=== PATIENT | male | born 1975 | race Caucasian/White ===

== ENCOUNTER 2017-10-09 01:34 | Inpatient (IN) | payer OTHER ==
[2017-10-09] VITALS (21 sets, daily range): BP systolic 96–150; BP diastolic 45–83; PULSE 69–123; RESP 16–26; TEMP 97.7–100.2; O2SAT 95–100
[~2017-10-09] VITALS: Ht 177.8 cm; Wt 88.6 kg
[2017-10-09] MEDS ORDERED: MANNITOL INJ 0 ML ONE ×2 (01:35→14:23)
[2017-10-09] MEDS ORDERED: MANNITOL INJ 200 ML ONE (01:36)
[2017-10-09] MEDS ORDERED: ROCURONIUM INJ 50 MG/5 ML VIAL ONE ×2 (01:37)
[2017-10-09] MEDS ORDERED: PROPOFOL 1000 MG/100 ML INJ 100 ML ONE (01:41)
[2017-10-09] MEDS ORDERED: ETOMIDATE 40 MG/20 ML VIAL ONE (01:49)
[2017-10-09] MEDS ORDERED: SUCCINYLCHOLINE CHLORIDE 200 MG/10 ML VIAL ONE (01:50)
[2017-10-09 01:55] LABS: AUTOMATED NEUTROPHIL # 2.9 TH/MM3 (1.8-7.7); BASOPHIL % 0.5 % (0.0-2.0); EOSINOPHIL # 0.3 TH/MM3 (0-0.4); EOSINOPHIL % 3.7 % (0.0-4.0); HEMATOCRIT 46.1 % (39.0-51.0); HEMOGLOBIN 15.9 GM/DL (13.0-17.0); LYMPH % 55.4 % (9.0-44.0); MEAN CELL VOLUME 89.8 FL (80.0-100.0); MEAN CORPUSCULAR HEMOGLOBIN 30.9 PG (27.0-34.0); MEAN CORPUSCULAR HGB CONC 34.4 % (32.0-36.0); MEAN PLATELET VOLUME 8.2 FL (7.0-11.0); MONO % 8.6 % (0.0-8.0); MONOCYTE # 0.8 TH/MM3 (0-0.9); NEUT % 31.8 % (16.0-70.0); PLATELET COUNT 228 TH/MM3 (150-450); RED BLOOD COUNT 5.14 MIL/MM3 (4.50-5.90); RED CELL DISTRIBUTION WIDTH 13.3 % (11.6-17.2)
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
[2017-10-09] MEDS: MIDAZOLAM HCL 2 MG/2 ML VIAL IV PUSH PRN ×2 (02:00→19:16)
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
[2017-10-09] MEDS ORDERED: SODIUM CHLOR 0.9% 1000 ML INJ 1,000 ML IV SCH ×2 (02:03→12:45)
[2017-10-09 02:07] LABS: INTERNATIONAL NORMALIZED RATIO 1.1 RATIO; PROTHROMBIN TIME - PATIENT 11.3 SEC (9.8-11.6)
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
[2017-10-09 02:15] LABS: ATYPICAL LYMPHOCYTES 36 % (0-0); BANDS 1 % (0-6); LYMPHOCYTES 23 % (9-44); MONOCYTES 6 % (0-8); NEUTROPHIL # MANUAL DIFF 2.9 TH/MM3 (1.8-7.7); POLYS (SEG NEUTROPHILS) 31 % (16-70)
[2017-10-09] MEDS ORDERED: MISCELLANEOUS NURSING INFORMATION XX SCH (02:15)
[2017-10-09] MEDS ORDERED: ONDANSETRON HCL 4 MG/2 ML VIAL IV PUSH PRN (02:15)
[2017-10-09] MEDS ORDERED: CHLORHEXIDINE GLUCONATE 2 % 1 PACK (2 CLOTHS) TOP PRN (02:15)
[2017-10-09] MEDS ORDERED: ENALAPRILAT 1.25 MG/ML VIAL IV PUSH PRN (02:15)
[2017-10-09] MEDS ORDERED: IOHEXOL 350 MG/ML 10 ML VIAL (for RAD DIAG) IVCONTRAST ONE (02:18)
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
[2017-10-09] MEDS ORDERED: PROPOFOL 1000 MG/100 ML INJ 100 ML IV PRN (02:45)
[2017-10-09] MEDS ORDERED: fentaNYL DRIP 250 ML IV PRN (02:45)
[2017-10-09] MEDS ORDERED: NOREPINEPHRINE 4 MG/4 ML AMP ONE (02:52)
[2017-10-09] MEDS ORDERED: MANNITOL INJ 50 ML ONE (02:56)
[2017-10-09] MEDS ORDERED: GLUCAGON 1 MG/ML VIAL OTHER PRN (03:00)
[2017-10-09] MEDS ORDERED: POTASSIUM CHLOR 40 MEQ PREMIX 100 ML IV PRN (03:00)
[2017-10-09] MEDS ORDERED: POTASSIUM PHOSPHATE MONOBASIC 500 MG TAB PO/TUBE PRN (03:00)
[2017-10-09] MEDS ORDERED: MAGNESIUM SULFATE INJ 2 GM in SODIUM CHLORIDE 0.9% INJ 96 ML IV PRN (03:00)
[2017-10-09] MEDS ORDERED: POTASSIUM PHOSPHATE INJ 30 MMOL in SODIUM CHLOR 0.9% 250 ML INJ 250 ML IV PRN (03:00)
[2017-10-09] MEDS ORDERED: MAGNESIUM SULFATE INJ 4 GM in SODIUM CHLORIDE 0.9% INJ 92 ML IV PRN (03:00)
[2017-10-09] MEDS ORDERED: SODIUM CHLORIDE 23.4% INJ 240 MEQ in SYRINGE/BAG 1 EA IV ONE ×3 (03:00→14:30)
[2017-10-09] MEDS ORDERED: MAGNESIUM OXIDE 400 MG TAB PO PRN (03:00)
[2017-10-09] MEDS ORDERED: SODIUM PHOSPHATE INJ 30 MMOL in SODIUM CHLOR 0.9% 250 ML INJ 240 ML IV PRN (03:00)
[2017-10-09] MEDS ORDERED: POTASSIUM CHLORIDE 25 MEQ EFFERVESCENT TAB PO PRN (03:00)
[2017-10-09] MEDS: INSULIN ASPART SUPPLEMENTAL SCALE SQ SCH ×4 (03:00→20:26)
[2017-10-09] MEDS ORDERED: POTASSIUM PHOSPHATE MONOBASIC 500 MG TAB PO PRN (03:00)
[2017-10-09] MEDS ORDERED: POTASSIUM CHLOR 20 MEQ PREMIX 100 ML IV PRN ×2 (03:00)
[2017-10-09] MEDS ORDERED: DEXTROSE 50% IN WATER 50 ML VIAL(D50) IV PUSH PRN (03:00)
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
[2017-10-09] MEDS ORDERED: CISATRACURIUM BESYLATE 10 MG/5 ML VIAL IV PUSH SCH (03:10)
[2017-10-09] MEDS ORDERED: TERBUTALINE INJ 1 MG/ML AMP SQ PRN (03:15)
[2017-10-09] MEDS ORDERED: CISATRACURIUM BESYLATE 20 MG/10 ML VIAL IV PUSH ONE ×2 (03:15)
[2017-10-09] MEDS ORDERED: MANNITOL 12.5 GM/50 ML VIAL IV SCH (03:15)
[2017-10-09] MEDS ORDERED: MIDAZOLAM 100 MG/100 ML INJ 100 ML IV PRN (03:15)
[2017-10-09] MEDS ORDERED: MIDAZOLAM HCL 5 MG/5 ML VIAL IV PUSH ONE (03:15)
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
[2017-10-09] MEDS ORDERED: CISATRACURIUM 100 MG/NS 250 ML IV PRN ×2 (03:30)
[2017-10-09] MEDS: CHLORHEXIDINE GLUCONATE 2 % 1 PACK (2 CLOTHS) TOP SCH (03:35)
[2017-10-09] MEDS: PANTOPRAZOLE SODIUM 40 MG VIAL IVP SCH (03:35)
[2017-10-09] MEDS: NOREPINEPHRINE INJ 4 MG in SODIUM CHLOR 0.9% 250 ML INJ 246 ML IV PRN ×4 (03:37→20:27)
[2017-10-09] MEDS: CISATRACURIUM INJ 100 MG in SODIUM CHLOR 0.9% 250 ML INJ 250 ML IV PRN ×2 (03:38→19:15)
--- NOTE | 2017-10-09 04:39 | PD.PROCEDR ---
Procedure Note Procedure DATE: 10/09/17 CENTRAL LINE PLACEMENT: Right internal jugular vein. Ultrasound-guided INDICATION: Central venous access CONSENT Procedure was done emergently as he requires central access for treatment of life threatening intracerebral hypertension.. There is no family contact available for consent. Patient is not capacitated. DESCRIPTION OF THE PROCEDURE The patient was placed in supine position, Trendelenburg. The skin was cleansed with Chloraprep x4. Additional barrier precautions included large sterile drape, sterile gloves, sterile gown, face mask, and hat. 1 % lidocaine was used for local anesthesia. Initial attempt at R subclavian site unsuccessful x2. Under direct ultrasound guidance and on single attempt, the R IJ vein was accessed with an introducer needle. The RIJ was collapsed. The guide wire was advanced and the tract was dilated. Using Seldinger technique a 7 Icelandic 20 cm antimicrobial coated triple-lumen catheter was advanced to a depth of 17 centimeters. The guide wire was removed. All ports had good return of dark venous blood and flushed easily with saline. The central line was secured with 2.0 silk as the Stat lock was not holding due to diaphoresis. A sterile dressing with antibiotic disc was applied. ESTIMATED BLOOD LOSS: Minimal COMPLICATIONS: No apparent complications. STAT chest x-ray demonstrates satisfactory central venous line position without apparent complication Bertha Austin MD Oct 09, 2017 04:39
--- NOTE | 2017-10-09 04:44 | RADRPT ---
EXAM DATE/TIME: 10/09/2017 04:19 [facility] COMPARISON: CHEST SINGLE AP, October 09, 2017, 1:36. INDICATIONS : Central line placement. MEDICAL HISTORY : None. SURGICAL HISTORY : None. ENCOUNTER: Subsequent ACUITY: 1 day PAIN SCORE: Non-responsive. LOCATION: Bilateral chest FINDINGS: Endotracheal tube tip 4 cm proximal to gerda. Nasogastric tube and right central line. Tip of centra l line at the cavoatrial junction. No pneumothorax. Clear lungs. CONCLUSION: Central line in good position. No pneumothorax. Enzo Yeboah Jr., MD on October 09, 2017 at 4:42 Board Certified Radiologist. This report was verified electronically.
[2017-10-09] MEDS: 3% SALINE INJ 500 ML IV SCH (06:12)
[2017-10-09] MEDS: PROPOFOL 1000 MG/100 ML INJ 100 ML IV PRN ×4 (07:30→20:25)
[2017-10-09] MEDS: CHLORHEXIDINE 0.12% (ORAL KIT) 15 ML CUP MT SCH ×2 (08:00→20:26)
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
--- NOTE | 2017-10-09 08:49 | RADRPT ---
EXAM DATE/TIME: 10/09/2017 08:23 [facility] COMPARISON: CT BRAIN W/O CONTRAST, October 09, 2017, 1:48. INDICATIONS : Follow up bleed. Increasing intracranial pressure. RADIATION DOSE: 66.34 CTDIvol (mGy) MEDICAL HISTORY : Non-responsive. SURGICAL HISTORY : Non-responsive. ENCOUNTER: Subsequent ACUITY: 1 day PAIN SCALE: Non-responsive LOCATION: cranial TECHNIQUE: Multiple contiguous axial images were obtained of the head. Using automated exposure control and adj ustment of the mA and/or kV according to patient size, radiation dose was kept as low as reasonably a chievable to obtain optimal diagnostic quality images. DICOM format image data is available electro nically for review and comparison. FINDINGS: There is persistent acute subdural hematoma within the left frontal, temporal and to a lesser extent left parietal lobes. The largest collection is located anterior to the left temporal lobe and measure s 7 mm. This is slightly improved compared to the previous examination. Diffuse acute subarachnoid he morrhage is noted throughout the left frontal, parietal and temporal lobes and to a much lesser exten t within the right frontal and parietal lobes. Mild subfalcine herniation to the right is noted measu ring 4 mm. Diffuse cerebral edema is again noted and stable. Left frontoparietal skull fracture is al so stable. Left orbital emphysema is noted. There is opacification of the left frontal sinus and ante rior ethmoid air cells. CONCLUSION: 1. Persistent acute subarachnoid and subdural hemorrhage which is only slightly improved compared to previous examination. There is persistent diffuse cerebral edema as well subfalcine herniation to the right measuring 4 mm. The largest collection of subdural hemorrhage is located anterior to the left temporal lobe and measures 7 mm. 2. Stable fracture involving the left frontal parietal skull. 3. Left orbital emphysema. 4. Opacification of the left frontal sinus as well as anterior ethmoid air cells. Mingo Covarrubias MD on October 09, 2017 at 8:39 Board Certified Radiologist. This report was verified electronically.
[2017-10-09] MEDS: THIAMINE INJ 100 MG in SODIUM CHLORIDE 0.9% INJ 100 ML IV SCH (09:00)
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
[2017-10-09] MEDS: MULTIVITAMIN TAB OG-TUBE SCH (10:33)
[2017-10-09] MEDS: levETIRAcetam INJ 500 MG in SODIUM CHLORIDE 0.9% INJ 100 ML IV SCH ×2 (10:33→20:26)
[2017-10-09] MEDS: FOLIC ACID 1 MG TAB OG-TUBE SCH (10:34)
[2017-10-09] MEDS: fentaNYL DRIP 250 ML IV PRN ×2 (11:11→20:25)
[2017-10-09] MEDS: MIDAZOLAM 100 MG/100 ML INJ 100 ML IV PRN ×3 (11:11→20:26)
[2017-10-09 11:53] LABS: MAGNESIUM 1.6 MG/DL (1.5-2.5); PHOSPHORUS 2.1 MG/DL (2.5-4.9)
[2017-10-09] MEDS ORDERED: PHENYLEPHRINE HCL 10 MG/ML VIAL IV ONE (12:00)
[2017-10-09] MEDS ORDERED: LIDOCAINE HCL 1% PF 5 ML SYRINGE OTHER ONE (12:00)
[2017-10-09] MEDS ORDERED: PROPOFOL 200 MG/20 ML AMP IV ONE (12:00)
[2017-10-09] MEDS ORDERED: ROCURONIUM INJ 50 MG/5 ML SYRINGE IV PUSH ONE (12:00)
[2017-10-09] MEDS ORDERED: PHENYLEPH/NS 1000 MCG/10 ML SYR IV ONE (12:00)
[2017-10-09] MEDS ORDERED: ceFAZolin INJ 1,000 MG VIAL IV ONE (12:00)
[2017-10-09] MEDS ORDERED: DEXAMETHASONE SOD PHOS 4 MG/ML VIAL IV ONE (12:00)
[2017-10-09] MEDS ORDERED: SODIUM CHLOR 0.9% IV ONE (12:00)
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
[2017-10-09] MEDS ORDERED: RESP: ALBUTEROL 2.5 MG/3 ML NEB (PRN) NEB (12:30)
[2017-10-09] MEDS: ACETAMINOPHEN 1000 MG/100 ML 100 ML IV PRN (13:37)
[2017-10-09 14:00] LABS: CSF EOSINOPHILS 2 %; CSF LYMPHOCYTES 6 %; CSF MONOCYTES 1 %; CSF NEUTROPHILS 91 %
[2017-10-09 14:01] LABS: VOLUME TUBE # 1 1.5 ML
[2017-10-09 14:03] LABS: SUPERNATE COLOR TUBE #1 HEMOLYZED (CLEAR)
[2017-10-09 14:04] LABS: RBC TUBE #1 249727 /MM3; WBC TUBE #1 384 /MM3 (0-10)
[2017-10-09] MEDS ORDERED: THROMBIN (TOPICAL) 5,000 UNIT VIAL ONE ×3 (14:18→16:41)
[2017-10-09] MEDS ORDERED: GELFOAM SIZE 100 ONE ×2 (14:19→16:21)
[2017-10-09] MEDS ORDERED: LIDOCAINE 1%/EPINEPHrine 1:100,000 SOLN 50 ML VIAL ONE (14:19)
[2017-10-09] MEDS ORDERED: GENTAMICIN SULFATE 80 MG/2 ML VIAL ONE (14:19)
[2017-10-09] MEDS ORDERED: levETIRAcetam 500 MG/5 ML VIAL IV ONE (14:23)
[2017-10-09] MEDS ORDERED: FUROSEMIDE 40 MG/4 ML VIAL ONE (14:23)
[2017-10-09 16:58] LABS: HEMATOCRIT 29.9 % (39.0-51.0); HEMOGLOBIN 10.5 GM/DL (13.0-17.0)
[2017-10-09] MEDS ORDERED: BACITRACIN TOP OINT 15 GM TUBE ONE (17:22)
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
[2017-10-09 18:55] LABS: HEMATOCRIT 27.7 % (39.0-51.0); HEMOGLOBIN 9.4 GM/DL (13.0-17.0); MEAN CELL VOLUME 92.4 FL (80.0-100.0); MEAN CORPUSCULAR HEMOGLOBIN 31.4 PG (27.0-34.0); MEAN PLATELET VOLUME 8.1 FL (7.0-11.0); PLATELET COUNT 198 TH/MM3 (150-450); RED BLOOD COUNT 2.99 MIL/MM3 (4.50-5.90); RED CELL DISTRIBUTION WIDTH 13.2 % (11.6-17.2)
[2017-10-09 19:19] LABS: BICARBONATE 26.3 MEQ/L (21.0-32.0); CALCIUM 6.8 MG/DL (8.5-10.1); CREATININE 1.06 MG/DL (0.60-1.30); MAGNESIUM 1.7 MG/DL (1.5-2.5); PHOSPHORUS 3.1 MG/DL (2.5-4.9)
[2017-10-09 19:20] LABS: INTERNATIONAL NORMALIZED RATIO 1.3 RATIO
[2017-10-09 20:08] LABS: CALCIUM-PROTEIN CORRECTED 8.1 MG/DL (8.5-10.1); TOTAL PROTEIN 4.6 GM/DL (6.4-8.2)
[2017-10-09 21:19] LABS: HEMATOCRIT 34.2 % (39.0-51.0); HEMOGLOBIN 11.8 GM/DL (13.0-17.0); MEAN CELL VOLUME 88.3 FL (80.0-100.0); MEAN CORPUSCULAR HEMOGLOBIN 30.4 PG (27.0-34.0); MEAN CORPUSCULAR HGB CONC 34.5 % (32.0-36.0); MEAN PLATELET VOLUME 8.5 FL (7.0-11.0); PLATELET COUNT 206 TH/MM3 (150-450); RED BLOOD COUNT 3.87 MIL/MM3 (4.50-5.90); RED CELL DISTRIBUTION WIDTH 13.4 % (11.6-17.2); WHITE BLOOD COUNT 15.1 TH/MM3 (4.0-11.0)
[2017-10-10] VITALS (15 sets, daily range): BP systolic 112–128; BP diastolic 52–65; PULSE 74–110; RESP 20–26; TEMP 98.6–100.4; O2SAT 95–100
[2017-10-10] MEDS: PROPOFOL 1000 MG/100 ML INJ 100 ML IV PRN ×7 (00:06→23:01)
[2017-10-10] MEDS: NOREPINEPHRINE INJ 4 MG in SODIUM CHLOR 0.9% 250 ML INJ 246 ML IV PRN ×6 (00:07→23:01)
[2017-10-10] MEDS: CISATRACURIUM INJ 100 MG in SODIUM CHLOR 0.9% 250 ML INJ 250 ML IV PRN ×2 (00:08→06:32)
[2017-10-10] MEDS: INSULIN ASPART SUPPLEMENTAL SCALE SQ SCH ×4 (03:00→20:03)
[2017-10-10] MEDS: PANTOPRAZOLE SODIUM 40 MG VIAL IVP SCH (03:17)
[2017-10-10] MEDS: CHLORHEXIDINE GLUCONATE 2 % 1 PACK (2 CLOTHS) TOP SCH (03:18)
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
[2017-10-10] MEDS: MIDAZOLAM 100 MG/100 ML INJ 100 ML IV PRN ×2 (04:57→13:51)
[2017-10-10] MEDS: fentaNYL DRIP 250 ML IV PRN ×2 (05:10→13:51)
[2017-10-10 05:45] LABS: AUTOMATED NEUTROPHIL # 10.9 TH/MM3 (1.8-7.7); BASOPHIL % 0.3 % (0.0-2.0); EOSINOPHIL % 0.1 % (0.0-4.0); HEMATOCRIT 30.7 % (39.0-51.0); HEMOGLOBIN 10.6 GM/DL (13.0-17.0); LYMPH % 7.3 % (9.0-44.0); LYMPHOCYTE # 0.9 TH/MM3 (1.0-4.8); MEAN CELL VOLUME 89.3 FL (80.0-100.0); MEAN CORPUSCULAR HEMOGLOBIN 30.8 PG (27.0-34.0); MEAN CORPUSCULAR HGB CONC 34.5 % (32.0-36.0); MEAN PLATELET VOLUME 8.7 FL (7.0-11.0); MONO % 7.7 % (0.0-8.0); NEUT % 84.6 % (16.0-70.0); PLATELET COUNT 148 TH/MM3 (150-450); RED BLOOD COUNT 3.44 MIL/MM3 (4.50-5.90); RED CELL DISTRIBUTION WIDTH 13.9 % (11.6-17.2); WHITE BLOOD COUNT 12.9 TH/MM3 (4.0-11.0)
[2017-10-10 06:30] LABS: MAGNESIUM 1.7 MG/DL (1.5-2.5)
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
[2017-10-10 07:47] LABS: ALBUMIN 2.5 GM/DL (3.4-5.0); CALCIUM 7.4 MG/DL (8.5-10.1); CALCIUM-PROTEIN CORRECTED 8.8 MG/DL (8.5-10.1); CREATININE 1.08 MG/DL (0.60-1.30); PHOSPHORUS 1.5 MG/DL (2.5-4.9); TOTAL PROTEIN 4.6 GM/DL (6.4-8.2)
[2017-10-10 07:48] LABS: TOTAL BILIRUBIN ADULT 0.5 MG/DL (0.2-1.0)
[2017-10-10 07:49] LABS: BICARBONATE 20.5 MEQ/L (21.0-32.0)
[2017-10-10] MEDS: CHLORHEXIDINE 0.12% (ORAL KIT) 15 ML CUP MT SCH ×2 (08:00→20:00)
--- NOTE | 2017-10-10 08:24 | HHI.PR ---
Neuropsych Emotional Emotional: UnabletoAssess: Emotional, Anxious/Fearful, Depressed/Sad, Hostile/ Resentful, Irritable/Angry/Frustrate, Labile, Constricted/Blunted Behavior Behavior: Intact: Impulsive/Agitated, Unable to Asses: Behavior, Coping/ Acceptance, Cooperative w/ Treatment, Motivation, Frustration Tolerance/[place], Suicidal/Homicidal Risk Cognitive Cognitive: Unable to Asses: Cognitive, Attention/Concentration, Confused/ Orientation, Insight/Awareness, Judgement/Problem-Solving, Memory Psychosocial Psychosocial: Unable to Asses: Psychosocial, Family/Other Adjustment, Realistic Expectation, Self-Esteem/Confidence Progress Notes/Response to Tx Contents of Sessions: Adjustment, Level of Consciousness Time with Patient: 15 minutes Premorbid psychological status Premorbid Cognitive, Emotional and Behavioral Status: Deferred. The patient has high school years of education and is believed to have a solid work history prior to this injury. The patient has no known prior psychiatric difficulties, as described above. Substance abuse history includes alcohol use. Behavioral Reactions of Patient and Family/Support System: Unable to Assess. The patients family is experiencing ongoing issues of adjustment given the nature of the injury, and this aspect of recovery will require ongoing monitoring. Emotional/Behavioral Status of Patient and Family/Support System: Unable to Assess. Pertinent issues, if appropriate to this patients clinical care, are described in detail above. Maximizing acute care outcome It is recommended that the patient be monitored for emergent behavioral impulsivity as the medical condition evolves. This patients neuropathological challenges may limit his rehabilitation potential going forward, and these challenges will require specialized therapeutic skills to maximize outcome. Additionally, the patients family is experiencing ongoing issues of adjustment given the traumatic nature of the injury, and they may benefit from ongoing psychological assistance. At this point in the recovery process, the patient does not have cognitive capacity as the patient is unable to understand a situation and its likely consequences, nor is he able to manipulate information rationally. Cognitive capacity will be assessed throughout the recovery process. Anticipated Problems Ongoing areas of concern will include behavioral impulsivity, lack of insight and judgment, which is expected to improve with time and treatment. Presently , the patient is intubated and sedated. Given the severity of the patient's injuries it is my clinical opinion that this patient will be unable to return to any type of productive employment for at least one year, perhaps longer and likely never. This patient is not considered safe to discharge home without supervision. Treatment Plan This clinician will continue to follow with you throughout the course of this patients critical care treatment, and I will be available to meet with the patients family/support system to facilitate their understanding and the ongoing care of their family member. The goals of neuropsychological intervention shall be both educational and supportive to the family/support system as is deemed clinically appropriate. [facility] Level: I:No response-total assistance Impression 42 year old [place] s/p [place] [facility] [place] Diagnosis: (1) Major neurocognitive disorder as late effect of traumatic brain injury without behavioral disturbance Progress Note Narrative PTD 1. The patient underwent bilateral decompressive craniectomies yesterday, and he remains intubated and sedated. There are no neurobehavioral issues at present. He remains [place]. I will follow. Wil Baeza PhD Oct 10, 2017 8:24 am
[2017-10-10] MEDS: levETIRAcetam INJ 500 MG in SODIUM CHLORIDE 0.9% INJ 100 ML IV SCH ×2 (09:42→20:03)
[2017-10-10] MEDS: MULTIVITAMIN TAB OG-TUBE SCH (09:42)
[2017-10-10] MEDS: FOLIC ACID 1 MG TAB OG-TUBE SCH (09:42)
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
[2017-10-10] MEDS: THIAMINE INJ 100 MG in SODIUM CHLORIDE 0.9% INJ 100 ML IV SCH (10:32)
[2017-10-10] MEDS: 3% SALINE INJ 500 ML IV SCH ×2 (12:22→22:00)
[2017-10-10] MEDS: LACTULOSE SYRUP 20 GM/30 ML CUP PO SCH (12:29)
[2017-10-10] MEDS: SENNOSIDES SYRUP 8.8 MG/5 ML CUP PO SCH (12:29)
[2017-10-10] MEDS: ACETAMINOPHEN 1000 MG/100 ML 100 ML IV PRN (17:04)
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
[2017-10-10] MEDS ORDERED: ARTIFICIAL TEARS OPTH OINT 3.5 APPLIC/3.5 GM TUBO EACH EYE PRN (18:45)
[2017-10-10 20:22] LABS: MAGNESIUM 1.7 MG/DL (1.5-2.5)
[2017-10-10] MEDS: ARTIFICIAL TEARS OPTH OINT 3.5 APPLIC/3.5 GM TUBO EACH EYE SCH (21:00)
[2017-10-10 22:10] LABS: PHOSPHORUS 1.4 MG/DL (2.5-4.9)
[2017-10-11] VITALS (19 sets, daily range): BP systolic 114–128; BP diastolic 50–57; PULSE 78–98; RESP 20–22; TEMP 98.8–101.1; O2SAT 96–99
[2017-10-11] MEDS: MIDAZOLAM 100 MG/100 ML INJ 100 ML IV PRN ×3 (01:13→18:33)
[2017-10-11] MEDS: fentaNYL DRIP 250 ML IV PRN ×3 (01:13→18:32)
[2017-10-11] MEDS: PROPOFOL 1000 MG/100 ML INJ 100 ML IV PRN ×7 (02:00→22:34)
[2017-10-11] MEDS: INSULIN ASPART SUPPLEMENTAL SCALE SQ SCH ×4 (02:11→20:59)
[2017-10-11] MEDS: CHLORHEXIDINE GLUCONATE 2 % 1 PACK (2 CLOTHS) TOP SCH (03:02)
[2017-10-11] MEDS: NOREPINEPHRINE INJ 4 MG in SODIUM CHLOR 0.9% 250 ML INJ 246 ML IV PRN (05:43)
[2017-10-11 05:46] LABS: AUTOMATED NEUTROPHIL # 6.3 TH/MM3 (1.8-7.7); BASOPHIL % 0.2 % (0.0-2.0); EOSINOPHIL # 0.1 TH/MM3 (0-0.4); EOSINOPHIL % 0.9 % (0.0-4.0); HEMATOCRIT 22.4 % (39.0-51.0); HEMOGLOBIN 7.8 GM/DL (13.0-17.0); LYMPH % 11.8 % (9.0-44.0); LYMPHOCYTE # 0.9 TH/MM3 (1.0-4.8); MEAN CELL VOLUME 91.7 FL (80.0-100.0); MEAN CORPUSCULAR HEMOGLOBIN 31.9 PG (27.0-34.0); MEAN CORPUSCULAR HGB CONC 34.8 % (32.0-36.0); MEAN PLATELET VOLUME 8.6 FL (7.0-11.0); MONO % 6.4 % (0.0-8.0); MONOCYTE # 0.5 TH/MM3 (0-0.9); NEUT % 80.7 % (16.0-70.0); PLATELET COUNT 93 TH/MM3 (150-450); RED BLOOD COUNT 2.44 MIL/MM3 (4.50-5.90); RED CELL DISTRIBUTION WIDTH 14.1 % (11.6-17.2); WHITE BLOOD COUNT 7.7 TH/MM3 (4.0-11.0)
[2017-10-11 06:10] LABS: BICARBONATE 23.9 MEQ/L (21.0-32.0); CALCIUM 7.3 MG/DL (8.5-10.1); CREATININE 0.85 MG/DL (0.60-1.30); MAGNESIUM 1.8 MG/DL (1.5-2.5)
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
[2017-10-11] MEDS ORDERED: FUROSEMIDE 20 MG/2 ML VIAL IV PUSH ONE ×2 (07:00→15:00)
[2017-10-11 07:03] LABS: CALCIUM-PROTEIN CORRECTED 8.7 MG/DL (8.5-10.1); PHOSPHORUS 2.9 MG/DL (2.5-4.9); TOTAL PROTEIN 4.7 GM/DL (6.4-8.2)
[2017-10-11] MEDS: CHLORHEXIDINE 0.12% (ORAL KIT) 15 ML CUP MT SCH ×2 (08:00→20:40)
[2017-10-11] MEDS: SENNOSIDES SYRUP 8.8 MG/5 ML CUP PO SCH (08:19)
[2017-10-11] MEDS: THIAMINE INJ 100 MG in SODIUM CHLORIDE 0.9% INJ 100 ML IV SCH (08:19)
[2017-10-11] MEDS: LACTULOSE SYRUP 20 GM/30 ML CUP PO SCH (08:19)
[2017-10-11] MEDS: levETIRAcetam INJ 500 MG in SODIUM CHLORIDE 0.9% INJ 100 ML IV SCH ×2 (08:19→20:41)
[2017-10-11] MEDS: ARTIFICIAL TEARS OPTH OINT 3.5 APPLIC/3.5 GM TUBO EACH EYE SCH ×2 (08:20→20:41)
[2017-10-11] MEDS: FOLIC ACID 1 MG TAB OG-TUBE SCH (08:20)
[2017-10-11] MEDS: FAMOTIDINE 20 MG/2 ML VIAL IV PUSH SCH ×2 (08:20→20:41)
[2017-10-11] MEDS: MULTIVITAMIN TAB OG-TUBE SCH (08:20)
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
[2017-10-11] MEDS: ACETAMINOPHEN 1000 MG/100 ML 100 ML IV PRN ×2 (11:56→20:41)
[2017-10-11 18:54] LABS: MAGNESIUM 1.8 MG/DL (1.5-2.5); PHOSPHORUS 2.2 MG/DL (2.5-4.9)
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
[2017-10-12] VITALS (18 sets, daily range): BP systolic 116–134; BP diastolic 48–62; PULSE 78–118; RESP 22–24; TEMP 99.5–102.9; O2SAT 94–100
[2017-10-12] MEDS: PROPOFOL 1000 MG/100 ML INJ 100 ML IV PRN ×7 (01:00→23:30)
[2017-10-12] MEDS: INSULIN ASPART SUPPLEMENTAL SCALE SQ SCH ×4 (03:00→21:00)
[2017-10-12] MEDS: CHLORHEXIDINE GLUCONATE 2 % 1 PACK (2 CLOTHS) TOP SCH (03:21)
[2017-10-12] MEDS: NOREPINEPHRINE INJ 4 MG in SODIUM CHLOR 0.9% 250 ML INJ 246 ML IV PRN ×2 (03:39→15:01)
[2017-10-12 04:31] LABS: AUTOMATED NEUTROPHIL # 5.4 TH/MM3 (1.8-7.7); BASOPHIL % 0.3 % (0.0-2.0); EOSINOPHIL # 0.2 TH/MM3 (0-0.4); EOSINOPHIL % 3.4 % (0.0-4.0); HEMATOCRIT 21.5 % (39.0-51.0); HEMOGLOBIN 7.5 GM/DL (13.0-17.0); LYMPH % 12.6 % (9.0-44.0); LYMPHOCYTE # 0.9 TH/MM3 (1.0-4.8); MEAN CELL VOLUME 90.3 FL (80.0-100.0); MEAN CORPUSCULAR HEMOGLOBIN 31.5 PG (27.0-34.0); MEAN CORPUSCULAR HGB CONC 34.9 % (32.0-36.0); MEAN PLATELET VOLUME 8.7 FL (7.0-11.0); MONO % 6.6 % (0.0-8.0); MONOCYTE # 0.5 TH/MM3 (0-0.9); NEUT % 77.1 % (16.0-70.0); PLATELET COUNT 95 TH/MM3 (150-450); RED BLOOD COUNT 2.39 MIL/MM3 (4.50-5.90); RED CELL DISTRIBUTION WIDTH 13.7 % (11.6-17.2)
[2017-10-12 04:51] LABS: BICARBONATE 25.6 MEQ/L (21.0-32.0); CALCIUM 7.4 MG/DL (8.5-10.1); CREATININE 0.8 MG/DL (0.60-1.30); MAGNESIUM 1.9 MG/DL (1.5-2.5)
[2017-10-12 05:09] LABS: CALCIUM-PROTEIN CORRECTED 8.4 MG/DL (8.5-10.1); TOTAL PROTEIN 5.3 GM/DL (6.4-8.2)
[2017-10-12] MEDS: POTASSIUM CHLOR 40 MEQ PREMIX 100 ML IV PRN (06:24)
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
[2017-10-12] MEDS: MIDAZOLAM 100 MG/100 ML INJ 100 ML IV PRN (07:44)
[2017-10-12] MEDS: fentaNYL DRIP 250 ML IV PRN ×2 (07:44→16:54)
[2017-10-12] MEDS: MULTIVITAMIN TAB OG-TUBE SCH (09:50)
[2017-10-12] MEDS: SENNOSIDES SYRUP 8.8 MG/5 ML CUP PO SCH (09:50)
[2017-10-12] MEDS: LACTULOSE SYRUP 20 GM/30 ML CUP PO SCH (09:50)
[2017-10-12] MEDS: levETIRAcetam INJ 500 MG in SODIUM CHLORIDE 0.9% INJ 100 ML IV SCH ×2 (09:50→21:30)
[2017-10-12] MEDS: FOLIC ACID 1 MG TAB OG-TUBE SCH (09:50)
[2017-10-12] MEDS: SODIUM CHLORIDE 0.9% FLUSH 10 ML FLUSH IV FLUSH PRN (09:50)
[2017-10-12] MEDS ORDERED: FUROSEMIDE 20 MG/2 ML VIAL IV PUSH ONE (10:30)
[2017-10-12] MEDS: ACETAMINOPHEN 1000 MG/100 ML 100 ML IV PRN ×2 (10:30→17:28)
[2017-10-12] MEDS ORDERED: POTASSIUM CHLORIDE 25 MEQ EFFERVESCENT TAB PO ONE (10:30)
[2017-10-12] MEDS: CHLORHEXIDINE 0.12% (ORAL KIT) 15 ML CUP MT SCH ×2 (10:31→21:29)
[2017-10-12] MEDS: ARTIFICIAL TEARS OPTH OINT 3.5 APPLIC/3.5 GM TUBO EACH EYE SCH (10:31)
[2017-10-12] MEDS: THIAMINE INJ 100 MG in SODIUM CHLORIDE 0.9% INJ 100 ML IV SCH (10:31)
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
[2017-10-12] MEDS: FAMOTIDINE 20 MG/2 ML VIAL IV PUSH SCH ×2 (14:41→21:31)
--- NOTE | 2017-10-12 15:55 | HHI.NSPN ---
Note Status Status: Progress Note Interval History Interval History 10/12. Intubated and sedated. ICP's well comtrolled Labs, Micro, & Vital Signs Results Date Time Temp Pulse Resp B/P (MAP) Pulse Ox O2 Delivery O2 Flow Rate FiO2 10/12/17 15:01 96 129/52 10/12/17 12:33 100 40 10/12/17 12:31 101.5 90 22 120/50 97 10/12/17 12:16 101.8 99 22 116/48 94 10/12/17 09:40 99 30 10/12/17 06:00 85 10/12/17 04:00 30 10/12/17 04:00 84 10/12/17 04:00 100.0 88 22 130/56 (80) 100 10/12/17 03:39 85 133/58 10/12/17 02:00 80 10/12/17 01:30 100 30 10/12/17 00:00 30 10/12/17 00:00 99.5 78 22 134/62 (86) 99 10/12/17 00:00 78 10/11/17 22:00 78 10/11/17 20:44 98 30 10/11/17 20:00 30 10/11/17 20:00 100.4 92 22 128/56 (80) 96 10/11/17 20:00 92 10/11/17 18:11 98 30 10/11/17 18:00 89 10/11/17 16:00 100.6 85 22 117/51 (73) 98 10/11/17 16:00 30 10/11/17 16:00 85 10/13/17 06:59 Intake Total 20 ml Balance 20 ml Constitutional Vital Signs Date Time Temp Pulse Resp B/P (MAP) Pulse Ox O2 Delivery O2 Flow Rate FiO2 10/12/17 15:01 96 129/52 10/12/17 12:33 100 40 10/12/17 12:31 101.5 90 22 120/50 97 10/12/17 12:16 101.8 99 22 116/48 94 10/12/17 09:40 99 30 10/12/17 06:00 85 10/12/17 04:00 30 10/12/17 04:00 84 10/12/17 04:00 100.0 88 22 130/56 (80) 100 10/12/17 03:39 85 133/58 10/12/17 02:00 80 10/12/17 01:30 100 30 10/12/17 00:00 30 10/12/17 00:00 99.5 78 22 134/62 (86) 99 10/12/17 00:00 78 10/11/17 22:00 78 10/11/17 20:44 98 30 10/11/17 20:00 30 10/11/17 20:00 100.4 92 22 128/56 (80) 96 10/11/17 20:00 92 10/11/17 18:11 98 30 10/11/17 18:00 89 10/11/17 16:00 100.6 85 22 117/51 (73) 98 10/11/17 16:00 30 10/11/17 16:00 85 10/13/17 06:59 Intake Total 20 ml Balance 20 ml Physical Exam Gen: Mr. Mancia is intubated and well sedated on multiple sedative drips. HEENT: bilateral decompressive craniectomy sites full, slightly soft to palpate. Left eye ecchymoses. Right ICP monitor in place, ICPs 7 Surgical incision are clean and dry. CHUCKY drains in place on both sides. Neuro: sedated. Cranial Nerves: Pupils 2 mm equal. Motor: well sedated, paralyzed, no spontaneous movements Reflexes: trace throughout. plantars silent bilaterally. Cerebellar: cannot be adequately assessed due to the patient's neurological condition Heart: regular rate Resp: mechanically ventilated Medications Current Medications Current Medications Mannitol 0 ml @ As Directed STK-MED ONCE .ROUTE ; Start 10/09/17 at 01:35; Stop 10/09/17 at 01:36; Status DC Mannitol 200 ml @ As Directed STK-MED ONCE .ROUTE ; Start 10/09/17 at 01:36; Stop 10/09/17 at 01:37; Status DC Rocuronium Meridian (Zemuron Inj) 50 mg STK-MED ONCE .ROUTE ; Start 10/09/17 at 01:37; Stop 10/09/17 at 01:38; Status DC Rocuronium Meridian (Zemuron Inj) 50 mg STK-MED ONCE .ROUTE ; Start 10/09/17 at 01:37; Stop 10/09/17 at 01:38; Status DC Propofol 100 ml @ As Directed STK-MED ONCE .ROUTE ; Start 10/09/17 at 01:41; Stop 10/09/17 at 01:42; Status DC Nicardipine HCl (Cardene Inj) 25 mg STK-MED ONCE .ROUTE ; Start 10/09/17 at 01: 42; Stop 10/09/17 at 01:43; Status DC Nicardipine HCl (Cardene Inj) 25 mg STK-MED ONCE .ROUTE ; Start 10/09/17 at 01: 45; Stop 10/09/17 at 01:46; Status DC Etomidate (Amidate Inj) 40 mg STK-MED ONCE .ROUTE ; Start 10/09/17 at 01:49; Stop 10/09/17 at 01:50; Status DC Succinylcholine Chloride (Quelicin Inj) 200 mg STK-MED ONCE .ROUTE ; Start 10/09 at 01:50; Stop 10/09/17 at 01:51; Status DC Sodium Chloride 1,000 ml @ 100 mls/hr Q10H IV Last administered on 10/09/17at 03:34; Start 10/09/17 at 02:03; Stop 10/09/17 at 09:46; Status DC Sodium Chloride (NS Flush) 2 ml UNSCH PRN IV FLUSH FLUSH AFTER USING IV ACCESS Last administered on 10/12/17at 09:50; Start 10/09/17 at 02:15 Enalaprilat (Vasotec Inj) 1.25 mg Q8H PRN IV PUSH SBP>180, DBP>95; Start at 02:15; Stop 10/09/17 at 03:04; Status DC Ondansetron HCl (Zofran Inj) 4 mg Q6H PRN IV PUSH NAUSEA OR VOMITING; Start at 02:15 Pantoprazole Sodium (Protonix Inj) 40 mg Q24H IVP Last administered on at 03:17; Start 10/09/17 at 04:00; Stop 10/10/17 at 10:12; Status DC Miscellaneous Information 1 [id number] Last administered on 10/09/17at 02:15; Start 10/09/17 at 02:15 Chlorhexidine Gluconate (Chlorhexidine 2% Cloth) 3 pack Taper DAILY@04 TOP ; Start 10/09/17 at 04:00; Stop 10/05/18 at 03:59 Chlorhexidine Gluconate (Chlorhexidine 2% Cloth) 3 pack UNSCH PRN TOP HYGIENIC CARE; Start 10/09/17 at 02:15 Iohexol (Omnipaque 350 Inj) 100 ml STK-MED ONCE IVCONTRAST Last administered on 10/09/17at 02:18; Start 10/09/17 at 02:18; Stop 10/09/17 at 02:19; Status DC Fentanyl Citrate (fentaNYL INJ) 100 mcg STK-MED ONCE .ROUTE ; Start 10/09/17 at 02:42; Stop 10/09/17 at 02:43; Status DC Fentanyl Citrate 250 ml @ 5 mls/hr TITRATE PRN IV SEDATION Last administered on 10/09/17at 03:37; Start 10/09/17 at 02:45; Stop 10/09/17 at 09:17; Status DC Propofol 100 ml @ 2.979 mls/ hr TITRATE PRN IV SEDATION Last administered on at 03:37; Start 10/09/17 at 02:45; Stop 10/09/17 at 09:19; Status DC Sodium Chloride 500 ml @ 10 mls/hr CONTINUOUS IV Last administered on at 22:00; Start 10/09/17 at 02:45; Stop 10/11/17 at 11:01; Status DC Thiamine HCl 100 mg/Sodium Chloride 101 ml @ 101 mls/hr DAILY IV Last administered on 10/12/17at 10:31; Start 10/09/17 at 09:00 Multivitamins (Theragran) 1 tab DAILY OG-TUBE Last administered on 10/12/17at 09 :50; Start 10/09/17 at 09:00 Folic Acid (Folate) 1 mg DAILY OG-TUBE Last administered on 10/12/17at 09:50; Start 10/09/17 at 09:00 Midazolam HCl (Versed Inj) 2 mg Q15M PRN IV PUSH SEDATION/ICP >20 Last administered on 10/09/17at 19:16; Start 10/09/17 at 02:45 Chlorhexidine Gluconate (Peridex 0.12% Liq) 15 ml BID@08,20 MT Last administered on 10/12/17at 10:31; Start 10/09/17 at 08:00 Dextrose (D50w (Vial) Inj) 50 ml UNSCH PRN IV PUSH HYPOGLYCEMIA-SEE COMMENTS; Start 10/09/17 at 03:00 Glucagon (Glucagon Inj) 1 mg UNSCH PRN OTHER HYPOGLYCEMIA-SEE COMMENTS; Start 10/09/17 at 03:00 Insulin Aspart (NovoLOG SUPPLEMENTAL SCALE) 1 Q6H SQ ; Start 10/09/17 at 03:00 Potassium Chloride 100 ml @ 50 mls/hr Q2H PRN IV For Potassium 2.8 - 3.2 mEq/ L Last administered on 10/12/17at 06:24; Start 10/09/17 at 03:00 Potassium Chloride 100 ml @ 50 mls/hr Q2H PRN IV For Potassium 2.8 - 3.2 mEq/L ; Start 10/09/17 at 03:00 Potassium Bicarb/ Potassium Chloride (K-Lyte Cl Eff) 50 meq UNSCH PRN PO For Potassium 3.3 - 3.5 mEq/L; Start 10/09/17 at 03:00 Potassium Chloride 100 ml @ 25 mls/hr UNSCH PRN IV For Potassium 3.3 - 3.5 mEq /L Last administered on 10/11/17at 06:35; Start 10/09/17 at 03:00 Potassium Chloride 100 ml @ 50 mls/hr Q2H PRN IV For Potassium 3.3 - 3.5 mEq/L ; Start 10/09/17 at 03:00 Magnesium Sulfate 4 gm/Sodium Chloride 100 ml @ 50 mls/hr UNSCH PRN IV For Magnesium 0.9 - 1.1 mg/dL; Start 10/09/17 at 03:00 Magnesium Oxide (Mag-Ox) 800 mg UNSCH PRN PO For Magnesium 1.2 - 1.6 mg/dL; Start 10/09/17 at 03:00 Magnesium Sulfate 2 gm/Sodium Chloride 100 ml @ 50 mls/hr UNSCH PRN IV For Magnesium 1.2 - 1.6 mg/dL; Start 10/09/17 at 03:00 Potassium Phosphate (K-Phos) 2,000 mg Q4H PRN PO For Phosphorus < 2.5 mg/dL; Start 10/09/17 at 03:00 Sodium Phosphate 30 mmol/Sodium Chloride 250 ml @ 42 mls/hr UNSCH PRN IV For Phosphorus < 2.5 mg/dL Last administered on 10/10/17at 23:38; Start 10/09/17 at 03:00 Potassium Phosphate (K-Phos) 2,000 mg UNSCH PRN PO/TUBE SEE LABEL COMMENTS; Start 10/09/17 at 03:00 Potassium Phosphate 30 mmol/ Sodium Chloride 260 ml @ 42 mls/hr UNSCH PRN IV SEE LABEL COMMENTS Last administered on 10/10/17at 08:44; Start 10/09/17 at 03:00 Norepinephrine Bitartrate (Levophed Inj) 4 mg STK-MED ONCE .ROUTE ; Start at 02:52; Stop 10/09/17 at 02:53; Status DC Fentanyl Citrate (fentaNYL INJ) 100 mcg NOW IV ; Start 10/09/17 at 02:45; Stop 10/09/17 at 04:20; Status DC Mannitol 50 ml @ As Directed STK-MED ONCE .ROUTE ; Start 10/09/17 at 02:56; Stop 10/09/17 at 02:57; Status DC Sodium Chloride 240 meq/Syringe / Bag 60 ml @ 120 mls/hr ONCE ONCE IV Last administered on 10/09/17at 05:00; Start 10/09/17 at 03:00; Stop 10/09/17 at 03:29 ; Status DC Midazolam HCl (Versed Inj) 10 mg ONCE ONCE IV PUSH Last administered on at 03:35; Start 10/09/17 at 03:15; Stop 10/09/17 at 03:16; Status DC Midazolam HCl 100 ml @ 2 mls/hr TITRATE PRN IV SEDATION Last administered on at 03:39; Start 10/09/17 at 03:15; Stop 10/09/17 at 09:17; Status DC Norepinephrine Bitartrate 4 mg/ Sodium Chloride 250 ml @ 7.5 mls/hr TITRATE PRN IV Blood pressure management Last administered on 10/12/17at 15:01; Start at 03:15 Terbutaline Sulfate (Brethine Inj) 1 mg UNSCH PRN SQ For Extravasation; Start 10/09/17 at 03:15 Cisatracurium Besylate (Nimbex Inj) 10 mg ONCE ONCE IV PUSH Last administered on 10/09/17at 03:15; Start 10/09/17 at 03:15; Stop 10/09/17 at 03:16; Status DC Mannitol (Mannitol Inj) 25 gm NOW IV ; Start 10/09/17 at 03:15; Stop 10/09/17 at 05:00; Status DC Cisatracurium Besylate (Nimbex Inj) 10 mg NOW IV PUSH ; Start 10/09/17 at 03:10 ; Stop 10/09/17 at 04:40; Status DC Cisatracurium Besylate (Nimbex Inj) 20 mg ONCE ONCE IV PUSH ; Start 10/09/17 at 03:15; Stop 10/09/17 at 03:20; Status DC Cisatracurium Besylate 100 mg/ Sodium Chloride 260 ml @ 15.49 mls/ hr TITRATE PRN IV TOF 1/4 Last administered on 10/10/17at 06:32; Start 10/09/17 at 03:15 Cisatracurium Besylate 100 mg/ Sodium Chloride 250 ml @ 14.89 mls/ hr TITRATE PRN IV TOF goal; Start 10/09/17 at 03:30; Stop 10/09/17 at 03:30; Status DC Levetriacetam 500 mg/Sodium Chloride 105 ml @ 420 mls/hr Q12HR IV Last administered on 10/12/17at 09:50; Start 10/09/17 at 09:00 Propofol 100 ml @ 2.979 mls/ hr TITRATE PRN IV SEDATION Last administered on at 13:58; Start 10/09/17 at 09:00 Fentanyl Citrate (fentaNYL INJ) 100 mcg Q1H PRN IV PUSH ICP > 20 Last administered on 10/09/17at 19:16; Start 10/09/17 at 09:00 Fentanyl Citrate 250 ml @ 5 mls/hr TITRATE PRN IV SEDATION Last administered on 10/12/17at 07:44; Start 10/09/17 at 09:00 Midazolam HCl 100 ml @ 2 mls/hr TITRATE PRN IV SEDATION Last administered on at 07:44; Start 10/09/17 at 09:00 Sodium Chloride 240 meq/Syringe / Bag 60 ml @ 120 mls/hr ONCE ONCE IV Last administered on 10/09/17at 09:15; Start 10/09/17 at 09:15; Stop 10/09/17 at 09:44 ; Status DC Albuterol Sulfate (Albuterol Neb) 2.5 mg Q2HR NEB PRN NEB WHEEZING; Start 10/09 at 12:30 Sodium Chloride 1,000 ml @ 100 mls/hr Q10H IV ; Start 10/09/17 at 12:45; Stop 10/09/17 at 13:40; Status DC Cefazolin Sodium 1000 mg/Sodium Chloride 100 ml @ 200 mls/hr Q8H IV Last administered on 10/11/17at 05:15; Start 10/09/17 at 14:00; Stop 10/11/17 at 11:01 ; Status DC Acetaminophen 100 ml @ 400 mls/hr Q6H PRN IV FEVER > 101 Last administered on 10/12/17at 10:30; Start 10/09/17 at 13:30 Sodium Chloride 240 meq/Syringe / Bag 60 ml @ 0 mls/hr ONCE ONCE IV ; Start at 14:30; Stop 10/09/17 at 14:31; Status DC Thrombin (Thrombin Top Soln) 10,000 units STK-MED ONCE .ROUTE ; Start 10/09/17 at 14:18; Stop 10/09/17 at 14:19; Status DC Gelatin (Gelfoam 100 Top) 1 foam STK-MED ONCE .ROUTE ; Start 10/09/17 at 14:19; Stop 10/09/17 at 14:20; Status DC Lidocaine/ Epinephrine (Xylocaine-Epi 1%-1:100,000 Inj) 50 ml STK-MED ONCE .ROUTE ; Start 10/09/17 at 14:19; Stop 10/09/17 at 14:20; Status DC Gentamicin Sulfate (Gentamicin Inj) 240 mg STK-MED ONCE .ROUTE ; Start 10/09/17 at 14:19; Stop 10/09/17 at 14:20; Status DC Furosemide (Lasix Inj) 40 mg STK-MED ONCE .ROUTE ; Start 10/09/17 at 14:23; Stop 10/09/17 at 14:24; Status DC Levetriacetam (Keppra Inj) 1,000 mg STK-MED ONCE IV ; Start 10/09/17 at 14:23; Stop 10/09/17 at 14:24; Status DC Mannitol 0 ml @ As Directed STK-MED ONCE .ROUTE ; Start 10/09/17 at 14:23; Stop 10/09/17 at 14:24; Status DC Thrombin (Thrombin Top Soln) 5,000 units STK-MED ONCE .ROUTE ; Start 10/09/17 at 16:21; Stop 10/09/17 at 16:22; Status DC Gelatin (Gelfoam 100 Top) 1 foam STK-MED ONCE .ROUTE ; Start 10/09/17 at 16:21; Stop 10/09/17 at 16:22; Status DC Thrombin (Thrombin Top Soln) 5,000 units STK-MED ONCE .ROUTE ; Start 10/09/17 at 16:41; Stop 10/09/17 at 16:42; Status DC Bacitracin (Baciguent Oint) 15 applic STK-MED ONCE .ROUTE ; Start 10/09/17 at 17 :22; Stop 10/09/17 at 17:23; Status DC Fentanyl Citrate (fentaNYL INJ) 100 mcg STK-MED ONCE .ROUTE ; Start 10/09/17 at 18:36; Stop 10/09/17 at 18:37; Status DC Famotidine (Pepcid Inj) 20 mg Q12H IV PUSH Last administered on 10/12/17at 14:41 ; Start 10/11/17 at 09:00 Lactulose (Lactulose Liq) 30 ml DAILY PO Last administered on 10/12/17at 09:50; Start 10/10/17 at 11:00 Sennosides (Senna Liq) 8.8 mg DAILY PO Last administered on 10/12/17at 09:50; Start 10/10/17 at 11:00 Artificial Tears (Lacrilube Opht Oint) 1 applic BID EACH EYE Last administered on 10/12/17at 10:31; Start 10/10/17 at 21:00 Artificial Tears (Lacrilube Opht Oint) 1 applic BID PRN EACH EYE DRY EYE; Start 10/10/17 at 18:45 Furosemide (Lasix Inj) 20 mg ONCE ONCE IV PUSH Last administered on 10/11/17at 07:03; Start 10/11/17 at 07:00; Stop 10/11/17 at 07:01; Status DC Furosemide (Lasix Inj) 20 mg ONCE ONCE IV PUSH Last administered on 10/11/17at 15:26; Start 10/11/17 at 15:00; Stop 10/11/17 at 15:01; Status DC Furosemide (Lasix Inj) 20 mg ONCE ONCE IV PUSH Last administered on 10/12/17at 10:30; Start 10/12/17 at 10:30; Stop 10/12/17 at 10:37; Status DC Potassium Bicarb/ Potassium Chloride (K-Lyte Cl Eff) 50 meq ONCE ONCE PO ; Start 10/12/17 at 10:30; Stop 10/12/17 at 10:37; Status DC Attending Statement Continue neuro checks. Pulmonary. On mechanical ventilation Renal. monitor closely urine output, BUN and creatinine Endocrine. Monitor serial Acu checks and SSI as needed in detail ID monitor for signs of infection Protonix for stress ulcer prophylaxis Phil wolfe and SCD's for DVT prophylaxis Discussed with his family at bedside Scott Arellano MD Oct 12, 2017 15:55
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
[2017-10-12] MEDS: VANCOMYCIN 1,000 MG/NS 250 ML IV SCH ×2 (21:30)
[2017-10-12] MEDS: PIPERACIL-TAZO 3.375 GM PREMIX 50 ML IV SCH (21:30)
[2017-10-13] VITALS (20 sets, daily range): BP systolic 95–121; BP diastolic 48–86; PULSE 74–103; RESP 24–26; TEMP 97.9–102.6; O2SAT 92–100
[2017-10-13] MEDS: INSULIN ASPART SUPPLEMENTAL SCALE SQ SCH ×4 (03:00→20:29)
[2017-10-13] MEDS: PIPERACIL-TAZO 3.375 GM PREMIX 50 ML IV SCH ×4 (03:30→20:28)
[2017-10-13] MEDS: PROPOFOL 1000 MG/100 ML INJ 100 ML IV PRN ×5 (03:40→23:32)
[2017-10-13] MEDS: CHLORHEXIDINE GLUCONATE 2 % 1 PACK (2 CLOTHS) TOP SCH (04:00)
[2017-10-13] MEDS: MIDAZOLAM 100 MG/100 ML INJ 100 ML IV PRN ×2 (04:31→20:28)
[2017-10-13] MEDS: fentaNYL DRIP 250 ML IV PRN ×2 (04:31→15:44)
[2017-10-13 04:39] LABS: AUTOMATED NEUTROPHIL # 4.5 TH/MM3 (1.8-7.7); BASOPHIL % 0.2 % (0.0-2.0); EOSINOPHIL # 0.1 TH/MM3 (0-0.4); EOSINOPHIL % 1.5 % (0.0-4.0); HEMATOCRIT 23.2 % (39.0-51.0); LYMPH % 9.3 % (9.0-44.0); LYMPHOCYTE # 0.5 TH/MM3 (1.0-4.8); MEAN CELL VOLUME 87.2 FL (80.0-100.0); MEAN CORPUSCULAR HGB CONC 34.4 % (32.0-36.0); MEAN PLATELET VOLUME 8.2 FL (7.0-11.0); MONOCYTE # 0.6 TH/MM3 (0-0.9); PLATELET COUNT 103 TH/MM3 (150-450); RED BLOOD COUNT 2.67 MIL/MM3 (4.50-5.90); RED CELL DISTRIBUTION WIDTH 15.1 % (11.6-17.2); WHITE BLOOD COUNT 5.8 TH/MM3 (4.0-11.0)
[2017-10-13 05:08] LABS: BICARBONATE 27.5 MEQ/L (21.0-32.0); CREATININE 0.78 MG/DL (0.60-1.30); MAGNESIUM 2.2 MG/DL (1.5-2.5)
[2017-10-13 05:18] LABS: PHOSPHORUS 3.8 MG/DL (2.5-4.9)
[2017-10-13] MEDS: ACETAMINOPHEN 1000 MG/100 ML 100 ML IV PRN ×3 (07:36→20:30)
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
[2017-10-13] MEDS: NOREPINEPHRINE INJ 4 MG in SODIUM CHLOR 0.9% 250 ML INJ 246 ML IV PRN ×2 (08:27→15:45)
[2017-10-13] MEDS: levETIRAcetam INJ 500 MG in SODIUM CHLORIDE 0.9% INJ 100 ML IV SCH ×2 (08:33→20:27)
[2017-10-13] MEDS: FOLIC ACID 1 MG TAB OG-TUBE SCH (08:33)
[2017-10-13] MEDS: SENNOSIDES SYRUP 8.8 MG/5 ML CUP PO SCH (08:33)
[2017-10-13] MEDS: FAMOTIDINE 20 MG/2 ML VIAL IV PUSH SCH ×2 (08:33→20:28)
[2017-10-13] MEDS: MULTIVITAMIN TAB OG-TUBE SCH (08:33)
[2017-10-13] MEDS: LACTULOSE SYRUP 20 GM/30 ML CUP PO SCH (08:34)
[2017-10-13] MEDS: THIAMINE INJ 100 MG in SODIUM CHLORIDE 0.9% INJ 100 ML IV SCH (08:34)
[2017-10-13] MEDS: CHLORHEXIDINE 0.12% (ORAL KIT) 15 ML CUP MT SCH ×2 (08:35→20:00)
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
[2017-10-13] MEDS: VANCOMYCIN 1,000 MG/NS 250 ML IV SCH ×4 (10:14→20:27)
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
[2017-10-13] MEDS: ARTIFICIAL TEARS OPTH SOLN 15 ML BTL EACH EYE SCH ×3 (12:35→18:25)
[2017-10-13] MEDS: ENOXAPARIN SODIUM 40 MG/0.4 ML SYRINGE SQ SCH (12:36)
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
--- NOTE | 2017-10-13 17:39 | RADRPT ---
EXAM DATE/TIME: 10/13/2017 17:26 [place] COMPARISON: CT BRAIN W/O CONTRAST, October 09, 2017, 8:23. INDICATIONS : Follow up bleed. RADIATION DOSE: 56.35 CTDIvol (mGy) MEDICAL HISTORY : Non-responsive. SURGICAL HISTORY : Non-responsive. ENCOUNTER: Subsequent ACUITY: 4 - 6 days PAIN SCALE: Non-responsive LOCATION: cranial TECHNIQUE: Multiple contiguous axial images were obtained of the head. Using automated exposure control and adj ustment of the mA and/or kV according to patient size, radiation dose was kept as low as reasonably a chievable to obtain optimal diagnostic quality images. DICOM format image data is available electro nically for review and comparison. FINDINGS: The examination demonstrates removal of large portions of the calvarium bilaterally. There is extensi ve edema throughout both hemispheres with loss of the lopez-white differentiation. There is evolving c ortical infarct involving the orbitofrontal portion of the left frontal lobe. There is parenchymal he morrhage within the orbital frontal portion of the left frontal lobe. There is contusion evident with in the right frontal lobe as well. The study is compared to the previous dated 10/09/17. The areas of edema appear to worsened since that time. There is collapse of the lateral ventricular system on the left. Lateral ventricular system on the ri ght is normal in size. The examination does demonstrate approximately 3-4 mm of left or right falcine shift. There is extra-axial hemorrhage evident along the left temporal lobe and left side of frontal lobe. T here is hemorrhage evident along the interhemispheric fissure and the tentorium. There are diffuse ed ematous changes within the cerebellum. CONCLUSION: 1. The examination demonstrates findings consistent with severe intracranial injury. There is now dev eloping cortical infarct involving both frontal lobes, the left temporal lobe and the high parietal c ortex left greater than right. There is intraparenchymal hemorrhage identified as described above. Ov cooper the appearance of the examination has moderately worsened since previous dated 10/09/17 Dimas Kamara MD on October 13, 2017 at 17:34 Board Certified Radiologist. This report was verified electronically.
[2017-10-14] VITALS (21 sets, daily range): BP systolic 116–137; BP diastolic 56–65; PULSE 71–91; RESP 24–26; TEMP 98.6–101.8; O2SAT 98–100
[2017-10-14] MEDS: fentaNYL DRIP 250 ML IV PRN ×2 (00:18→09:33)
[2017-10-14] MEDS: MIDAZOLAM 100 MG/100 ML INJ 100 ML IV PRN (00:28)
[2017-10-14] MEDS: NOREPINEPHRINE INJ 4 MG in SODIUM CHLOR 0.9% 250 ML INJ 246 ML IV PRN (01:25)
[2017-10-14] MEDS: PIPERACIL-TAZO 3.375 GM PREMIX 50 ML IV SCH ×2 (02:45→07:52)
[2017-10-14] MEDS: INSULIN ASPART SUPPLEMENTAL SCALE SQ SCH ×4 (03:00→21:00)
[2017-10-14] MEDS: CHLORHEXIDINE GLUCONATE 2 % 1 PACK (2 CLOTHS) TOP SCH (03:07)
[2017-10-14] MEDS: PROPOFOL 1000 MG/100 ML INJ 100 ML IV PRN ×6 (03:09→21:18)
[2017-10-14] MEDS: levETIRAcetam INJ 500 MG in SODIUM CHLORIDE 0.9% INJ 100 ML IV SCH ×2 (07:51→20:50)
[2017-10-14] MEDS: MULTIVITAMIN TAB OG-TUBE SCH (07:52)
[2017-10-14] MEDS: SENNOSIDES SYRUP 8.8 MG/5 ML CUP PO SCH (07:52)
[2017-10-14] MEDS: FAMOTIDINE 20 MG/2 ML VIAL IV PUSH SCH ×2 (07:52→20:51)
[2017-10-14] MEDS: CHLORHEXIDINE 0.12% (ORAL KIT) 15 ML CUP MT SCH ×2 (07:52→21:08)
[2017-10-14] MEDS: ARTIFICIAL TEARS OPTH SOLN 15 ML BTL EACH EYE SCH ×3 (07:52→17:43)
[2017-10-14] MEDS: THIAMINE INJ 100 MG in SODIUM CHLORIDE 0.9% INJ 100 ML IV SCH (07:52)
[2017-10-14] MEDS: LACTULOSE SYRUP 20 GM/30 ML CUP PO SCH (07:53)
[2017-10-14] MEDS: FOLIC ACID 1 MG TAB OG-TUBE SCH (07:53)
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
[2017-10-14] MEDS: ACETAMINOPHEN 1000 MG/100 ML 100 ML IV PRN ×2 (08:40→15:03)
[2017-10-14] MEDS ORDERED: BISACODYL 10 MG SUPP RECTAL ONE (10:15)
[2017-10-14] MEDS: MAGNESIUM HYDROXIDE SUSP 30 ML CUP PO SCH ×2 (10:15→21:08)
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
[2017-10-14] MEDS: VANCOMYCIN 1,000 MG/NS 250 ML IV SCH ×4 (10:41→22:21)
[2017-10-14] MEDS: ENOXAPARIN SODIUM 40 MG/0.4 ML SYRINGE SQ SCH (10:42)
[2017-10-14 13:08] LABS: AUTOMATED NEUTROPHIL # 4.3 TH/MM3 (1.8-7.7); BASOPHIL % 0.2 % (0.0-2.0); EOSINOPHIL # 0.2 TH/MM3 (0-0.4); EOSINOPHIL % 3.8 % (0.0-4.0); LYMPHOCYTE # 0.6 TH/MM3 (1.0-4.8); MEAN CELL VOLUME 88.4 FL (80.0-100.0); MEAN CORPUSCULAR HEMOGLOBIN 30.5 PG (27.0-34.0); MEAN CORPUSCULAR HGB CONC 34.5 % (32.0-36.0); MEAN PLATELET VOLUME 8.7 FL (7.0-11.0); MONO % 11.3 % (0.0-8.0); MONOCYTE # 0.7 TH/MM3 (0-0.9); NEUT % 73.7 % (16.0-70.0); PLATELET COUNT 138 TH/MM3 (150-450); RED BLOOD COUNT 2.35 MIL/MM3 (4.50-5.90); RED CELL DISTRIBUTION WIDTH 14.6 % (11.6-17.2); WHITE BLOOD COUNT 5.8 TH/MM3 (4.0-11.0)
[2017-10-14 13:13] LABS: HEMATOCRIT 20.8 % (39.0-51.0); HEMOGLOBIN 7.2 GM/DL (13.0-17.0)
[2017-10-14 13:26] LABS: CALCIUM 8.1 MG/DL (8.5-10.1); CREATININE 0.95 MG/DL (0.60-1.30)
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
[2017-10-14] MEDS: PIPERACIL-TAZO 4.5 GM PREMIX 100 ML IV SCH ×2 (16:22→20:51)
[2017-10-14] MEDS: POTASSIUM CHLOR 40 MEQ PREMIX 100 ML IV PRN ×2 (20:51→23:00)
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
[2017-10-15] VITALS (16 sets, daily range): BP systolic 132–155; BP diastolic 65–77; PULSE 70–80; RESP 24; TEMP 98.6–101.3; O2SAT 98–100
[2017-10-15] MEDS: PROPOFOL 1000 MG/100 ML INJ 100 ML IV PRN ×5 (01:48→22:54)
[2017-10-15] MEDS: PIPERACIL-TAZO 4.5 GM PREMIX 100 ML IV SCH ×4 (02:13→21:15)
[2017-10-15] MEDS: fentaNYL DRIP 250 ML IV PRN (02:14)
[2017-10-15] MEDS: INSULIN ASPART SUPPLEMENTAL SCALE SQ SCH ×4 (02:18→21:00)
[2017-10-15] MEDS: MIDAZOLAM 100 MG/100 ML INJ 100 ML IV PRN ×2 (05:09→17:30)
[2017-10-15] MEDS: CHLORHEXIDINE GLUCONATE 2 % 1 PACK (2 CLOTHS) TOP SCH (05:10)
--- NOTE | 2017-10-15 05:53 | RADRPT ---
EXAM DATE/TIME: 10/15/2017 04:28 [facility] COMPARISON: CHEST SINGLE AP, October 10, 2017, 2:46. INDICATIONS : Shortness of breath. MEDICAL HISTORY : Non-responsive SURGICAL HISTORY : Non-responsive ENCOUNTER: Subsequent ACUITY: 1 week PAIN SCORE: Non-responsive. LOCATION: Bilateral chest FINDINGS: ET tube tip well above the gerda. Gastric tube tip and side-port project within the stomach. Right central line catheter tip projects at the cavoatrial junction. Interval development of left lower l asim consolidation with loss of delineation of the entire left hemidiaphragm. There is also hazy opac ity in the right lower lung with loss of delineation of the right hemidiaphragm suggesting possible r ight pleural effusion. CONCLUSION: Interval development of left lower lobe consolidation and either consolidation or pleural effusion in the right lower chest. Enzo Lares MD on October 15, 2017 at 5:50 Board Certified Radiologist. This report was verified electronically.
[2017-10-15] MEDS ORDERED: SODIUM CHLOR 0.9% 250 ML INJ 250 ML IV ONE (06:00)
[2017-10-15 06:30] LABS: AUTOMATED NEUTROPHIL # 4.5 TH/MM3 (1.8-7.7); BASOPHIL % 0.5 % (0.0-2.0); EOSINOPHIL # 0.2 TH/MM3 (0-0.4); EOSINOPHIL % 3.4 % (0.0-4.0); HEMATOCRIT 24.8 % (39.0-51.0); HEMOGLOBIN 8.8 GM/DL (13.0-17.0); LYMPH % 10.6 % (9.0-44.0); LYMPHOCYTE # 0.6 TH/MM3 (1.0-4.8); MEAN CELL VOLUME 87.6 FL (80.0-100.0); MEAN CORPUSCULAR HEMOGLOBIN 31.2 PG (27.0-34.0); MEAN CORPUSCULAR HGB CONC 35.7 % (32.0-36.0); MEAN PLATELET VOLUME 8.9 FL (7.0-11.0); MONO % 11.6 % (0.0-8.0); MONOCYTE # 0.7 TH/MM3 (0-0.9); NEUT % 73.9 % (16.0-70.0); PLATELET COUNT 168 TH/MM3 (150-450); RED BLOOD COUNT 2.83 MIL/MM3 (4.50-5.90); RED CELL DISTRIBUTION WIDTH 15.2 % (11.6-17.2); WHITE BLOOD COUNT 6.1 TH/MM3 (4.0-11.0)
[2017-10-15 06:42] LABS: ALBUMIN 1.7 GM/DL (3.4-5.0); AST (GOT) 122 U/L (15-37); BICARBONATE 27.1 MEQ/L (21.0-32.0); BLOOD UREA NITROGEN 18 MG/DL (7-18); CALCIUM 8.1 MG/DL (8.5-10.1); CHLORIDE 113 MEQ/L (98-107); CREATININE 0.81 MG/DL (0.60-1.30); GLOMERULAR FILTRATION RATE 104 ML/MIN (>89); GLUCOSE,RANDOM 116 MG/DL (74-106); SODIUM (NA) 146 MEQ/L (136-145)
[2017-10-15 06:52] LABS: ALKALINE PHOSPHATASE 177 U/L (45-117); ALT (GPT) 63 U/L (12-78); TOTAL BILIRUBIN ADULT 0.6 MG/DL (0.2-1.0); TOTAL PROTEIN 6.2 GM/DL (6.4-8.2)
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
[2017-10-15] MEDS: MULTIVITAMIN TAB OG-TUBE SCH (09:00)
[2017-10-15] MEDS: ARTIFICIAL TEARS OPTH SOLN 15 ML BTL EACH EYE SCH ×3 (09:00→18:22)
[2017-10-15] MEDS: CHLORHEXIDINE 0.12% (ORAL KIT) 15 ML CUP MT SCH ×2 (09:14→21:14)
[2017-10-15] MEDS: THIAMINE INJ 100 MG in SODIUM CHLORIDE 0.9% INJ 100 ML IV SCH (09:14)
[2017-10-15] MEDS: FAMOTIDINE 20 MG/2 ML VIAL IV PUSH SCH ×2 (09:14→21:15)
[2017-10-15] MEDS: LACTULOSE SYRUP 20 GM/30 ML CUP PO SCH (09:14)
[2017-10-15] MEDS: MAGNESIUM HYDROXIDE SUSP 30 ML CUP PO SCH ×2 (09:14→21:15)
[2017-10-15] MEDS: SENNOSIDES SYRUP 8.8 MG/5 ML CUP PO SCH (09:14)
[2017-10-15] MEDS: levETIRAcetam INJ 500 MG in SODIUM CHLORIDE 0.9% INJ 100 ML IV SCH ×2 (09:14→21:15)
[2017-10-15] MEDS: FOLIC ACID 1 MG TAB OG-TUBE SCH (09:15)
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
[2017-10-15] MEDS: VANCOMYCIN 1,000 MG/NS 250 ML IV SCH ×4 (10:24→21:15)
[2017-10-15] MEDS: ENOXAPARIN SODIUM 40 MG/0.4 ML SYRINGE SQ SCH (10:24)
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
[2017-10-15] MEDS: ACETAMINOPHEN 1000 MG/100 ML 100 ML IV PRN (21:15)
[2017-10-16] VITALS (21 sets, daily range): BP systolic 137–152; BP diastolic 74–82; PULSE 63–79; RESP 24–26; TEMP 98.7–102.1; O2SAT 93–100
[2017-10-16] MEDS: PIPERACIL-TAZO 4.5 GM PREMIX 100 ML IV SCH ×2 (02:36→08:28)
[2017-10-16] MEDS: INSULIN ASPART SUPPLEMENTAL SCALE SQ SCH ×4 (03:00→21:00)
[2017-10-16] MEDS: CHLORHEXIDINE GLUCONATE 2 % 1 PACK (2 CLOTHS) TOP SCH (03:32)
[2017-10-16] MEDS: PROPOFOL 1000 MG/100 ML INJ 100 ML IV PRN ×3 (03:45→10:09)
--- NOTE | 2017-10-16 03:54 | RADRPT ---
EXAM DATE/TIME: 10/16/2017 02:31 [place] COMPARISON: CHEST SINGLE AP, October 15, 2017, 4:28. INDICATIONS : Respiratory distress. MEDICAL HISTORY : None. SURGICAL HISTORY : None. ENCOUNTER: Subsequent ACUITY: 1 week PAIN SCORE: Non-responsive. LOCATION: Bilateral chest FINDINGS: ET tube tip well above the gerda. Gastric tube tip and side-port project within the stomach. Right internal jugular catheter tip at the cavoatrial junction. There are persistent consolidative infilt rates in the left lower lung and non-consolidative infiltrates in the right lower lung. There is los s of delineation of the hemidiaphragms. CONCLUSION: 1. Lines and tubes are stable. 2. Persistent lower lung infiltrates. Enzo Lares MD on October 16, 2017 at 3:50 Board Certified Radiologist. This report was verified electronically.
[2017-10-16 04:34] LABS: AUTOMATED NEUTROPHIL # 5.1 TH/MM3 (1.8-7.7); BASOPHIL % 0.2 % (0.0-2.0); EOSINOPHIL # 0.1 TH/MM3 (0-0.4); HEMATOCRIT 26.2 % (39.0-51.0); LYMPH % 11.6 % (9.0-44.0); LYMPHOCYTE # 0.8 TH/MM3 (1.0-4.8); MEAN CELL VOLUME 87.6 FL (80.0-100.0); MEAN CORPUSCULAR HEMOGLOBIN 30.2 PG (27.0-34.0); MEAN CORPUSCULAR HGB CONC 34.5 % (32.0-36.0); MEAN PLATELET VOLUME 8.3 FL (7.0-11.0); MONO % 9.1 % (0.0-8.0); MONOCYTE # 0.6 TH/MM3 (0-0.9); NEUT % 77.1 % (16.0-70.0); PLATELET COUNT 206 TH/MM3 (150-450); RED BLOOD COUNT 2.99 MIL/MM3 (4.50-5.90); RED CELL DISTRIBUTION WIDTH 15.1 % (11.6-17.2); WHITE BLOOD COUNT 6.6 TH/MM3 (4.0-11.0)
[2017-10-16 04:41] LABS: ALBUMIN 1.7 GM/DL (3.4-5.0); ALT (GPT) 99 U/L (12-78); AST (GOT) 125 U/L (15-37); BICARBONATE 28.8 MEQ/L (21.0-32.0); BLOOD UREA NITROGEN 17 MG/DL (7-18); CHLORIDE 107 MEQ/L (98-107); CREATININE 0.77 MG/DL (0.60-1.30); GLOMERULAR FILTRATION RATE 110 ML/MIN (>89); GLUCOSE,RANDOM 103 MG/DL (74-106); SODIUM (NA) 143 MEQ/L (136-145)
[2017-10-16 04:44] LABS: ALKALINE PHOSPHATASE 249 U/L (45-117); TOTAL BILIRUBIN ADULT 0.5 MG/DL (0.2-1.0); TOTAL PROTEIN 6.5 GM/DL (6.4-8.2)
[2017-10-16] MEDS: CHLORHEXIDINE 0.12% (ORAL KIT) 15 ML CUP MT SCH ×2 (07:53→21:43)
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
[2017-10-16] MEDS: levETIRAcetam INJ 500 MG in SODIUM CHLORIDE 0.9% INJ 100 ML IV SCH ×2 (08:27→21:43)
[2017-10-16] MEDS: VANCOMYCIN 1,000 MG/NS 250 ML IV SCH ×4 (08:27→22:39)
[2017-10-16] MEDS: ACETAMINOPHEN 1000 MG/100 ML 100 ML IV PRN (08:28)
[2017-10-16] MEDS: ARTIFICIAL TEARS OPTH SOLN 15 ML BTL EACH EYE SCH ×3 (08:28→17:28)
[2017-10-16] MEDS: THIAMINE INJ 100 MG in SODIUM CHLORIDE 0.9% INJ 100 ML IV SCH (08:28)
[2017-10-16] MEDS: LACTULOSE SYRUP 20 GM/30 ML CUP PO SCH (08:28)
[2017-10-16] MEDS: SENNOSIDES SYRUP 8.8 MG/5 ML CUP PO SCH (08:28)
[2017-10-16] MEDS: MAGNESIUM HYDROXIDE SUSP 30 ML CUP PO SCH ×2 (08:28→21:43)
[2017-10-16] MEDS: FAMOTIDINE 20 MG/2 ML VIAL IV PUSH SCH ×2 (08:29→21:42)
[2017-10-16] MEDS: FOLIC ACID 1 MG TAB OG-TUBE SCH (08:29)
[2017-10-16] MEDS: MULTIVITAMIN TAB OG-TUBE SCH (08:29)
[2017-10-16] MEDS: ENOXAPARIN SODIUM 40 MG/0.4 ML SYRINGE SQ SCH (09:00)
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
[2017-10-16] MEDS ORDERED: BISACODYL 10 MG SUPP RECTAL ONE (11:00)
[2017-10-16] MEDS: SODIUM CHLORIDE 1 GRAM TAB PO SCH ×2 (11:41→21:43)
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
[2017-10-16] MEDS: AZTREONAM INJ 1,000 MG in SODIUM CHLORIDE 0.9% INJ 100 ML IV SCH ×2 (14:08→21:43)
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
[2017-10-16 16:15] LABS: FREE T4 0.99 NG/DL (0.76-1.46)
--- NOTE | 2017-10-16 16:46 | MG ---
cc: Mel Berger MD, David J MD REQUESTING PHYSICIAN: Dr. Dahl. DATE OF EE10/16/2017. INDICATION: An EEG was obtained on this 42-year-old patient, intubated with a history of intracranial injury. DESCRIPTION: There is EEG shows low-amplitude rhythms of questionable brain origin. There are some intermixed slow waves continually, perhaps sweat artifact. There was a lack of alpha activity and the lack of sleep spindles, etc. At some point, some theta activity that appears to be brain origin is noted along with the described high amplitude slow waves. Photic stimulation disclosed no change. Tactile stimulation shows no change. INTERPRETATION: Severely abnormal electroencephalogram because of generalized attenuation and lack of physiological rhythms. The findings suggest a severe bilateral cerebral dysfunction. No epileptiform features present. Mel Berger MD OFC/KD , 04:31 PM , 04:45 PM
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
[2017-10-16] MEDS ORDERED: GADODIAMIDE PF 287 MG/ML 5 ML VIAL (for RAD MRI) IVCONTRAST ONE (18:19)
[2017-10-16] MEDS: fentaNYL DRIP 250 ML IV PRN (18:30)
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
--- NOTE | 2017-10-16 22:06 | RADRPT ---
EXAM DATE/TIME: 10/16/2017 20:53 [facility] COMPARISON: No previous studies available for comparison. INDICATIONS : Bilateral leg swelling. MEDICAL HISTORY : Trama, RESIDENTIAL. SURGICAL HISTORY : Knee surgery. Craniectomy. ENCOUNTER: Initial ACUITY: 4 - 6 days PAIN SCORE: Non-responsive LOCATION: Bilateral legs. TECHNIQUE: Venous ultrasound of the left and right leg was performed from the inguinal ligament to the proximal calf. Real-time, color Doppler and spectral tracing, compression and augmentation techniques were us ed. FINDINGS: RIGHT LEG: There is normal compressibility of the deep venous system from the inguinal region to the proximal ca lf. No echogenic clot is seen in the lumen of the common femoral, femoral, popliteal, and posterior tibial veins. There is a normal response of the venous system to proximal and distal augmentation an d respiration. LEFT LEG: There is normal compressibility of the deep venous system from the inguinal region to the proximal ca lf. No echogenic clot is seen in the lumen of the common femoral, femoral, popliteal, and posterior tibial veins. There is a normal response of the venous system to proximal and distal augmentation an d respiration. CONCLUSION: Normal examination. Jose Mcdaniels MD on October 16, 2017 at 22:03 Board Certified Radiologist. This report was verified electronically.
[2017-10-17] VITALS (18 sets, daily range): BP systolic 139–169; BP diastolic 68–82; PULSE 69–84; RESP 24–32; TEMP 99.3–101.9; O2SAT 64–100
[2017-10-17] MEDS: hydrALAZINE HCL 20 MG/ML VIAL IV PUSH PRN ×2 (02:25→09:53)
[2017-10-17] MEDS: ACETAMINOPHEN 1000 MG/100 ML 100 ML IV PRN ×4 (02:25→22:44)
[2017-10-17] MEDS: INSULIN ASPART SUPPLEMENTAL SCALE SQ SCH ×2 (02:39→09:00)
[2017-10-17] MEDS: CHLORHEXIDINE GLUCONATE 2 % 1 PACK (2 CLOTHS) TOP SCH ×2 (04:00→23:19)
--- NOTE | 2017-10-17 04:55 | RADRPT ---
EXAM DATE/TIME: 10/17/2017 02:47 [facility] COMPARISON: CT THORAX W CONTRAST, October 09, 2017, 1:48. CHEST SINGLE AP, October 16, 2017, 2:31. INDICATIONS : Respiratory distress. MEDICAL HISTORY : None. SURGICAL HISTORY : Knee surgery. Craniectomy. ENCOUNTER: Subsequent ACUITY: 1 week PAIN SCORE: Non-responsive. LOCATION: Bilateral chest FINDINGS: A single AP semierect portable view of the chest was obtained and again demonstrates an endotracheal tube in place with the tip approximately 4 cm above the gerda. A nasogastric tube is again seen cour sing through the esophagus to the stomach. The right internal jugular central venous line remains in place. Hazy perihilar and bibasilar opacities remain. There is no pneumothorax. CONCLUSION: 1. No significant change in the perihilar and bibasilar opacities. 2. The patient remains intubated. Sam Jovel MD on October 17, 2017 at 4:51 Board Certified Radiologist. This report was verified electronically.
[2017-10-17] MEDS: AZTREONAM INJ 1,000 MG in SODIUM CHLORIDE 0.9% INJ 100 ML IV SCH ×3 (05:04→20:41)
[2017-10-17 05:10] LABS: AUTOMATED NEUTROPHIL # 11.3 TH/MM3 (1.8-7.7); BASOPHIL % 0.2 % (0.0-2.0); HEMATOCRIT 28.4 % (39.0-51.0); LYMPH % 4.9 % (9.0-44.0); LYMPHOCYTE # 0.6 TH/MM3 (1.0-4.8); MEAN CORPUSCULAR HEMOGLOBIN 30.5 PG (27.0-34.0); MONO % 5.4 % (0.0-8.0); MONOCYTE # 0.7 TH/MM3 (0-0.9); NEUT % 89.5 % (16.0-70.0); PLATELET COUNT 295 TH/MM3 (150-450); RED BLOOD COUNT 3.27 MIL/MM3 (4.50-5.90); WHITE BLOOD COUNT 12.7 TH/MM3 (4.0-11.0)
[2017-10-17] MEDS: PROPOFOL 1000 MG/100 ML INJ 100 ML IV PRN ×4 (05:20→19:00)
[2017-10-17] MEDS: LABETALOL HCL 100 MG/20 ML VIAL IV PUSH PRN ×3 (05:20→16:45)
[2017-10-17 05:33] LABS: AST (GOT) 135 U/L (15-37); BICARBONATE 25.9 MEQ/L (21.0-32.0); BLOOD UREA NITROGEN 18 MG/DL (7-18); CALCIUM 8.3 MG/DL (8.5-10.1); CHLORIDE 101 MEQ/L (98-107); CREATININE 0.82 MG/DL (0.60-1.30); GLOMERULAR FILTRATION RATE 103 ML/MIN (>89); GLUCOSE,RANDOM 128 MG/DL (74-106); SODIUM (NA) 136 MEQ/L (136-145)
[2017-10-17 05:34] LABS: ALT (GPT) 127 U/L (12-78)
[2017-10-17 05:36] LABS: ALKALINE PHOSPHATASE 243 U/L (45-117); TOTAL BILIRUBIN ADULT 0.6 MG/DL (0.2-1.0); TOTAL PROTEIN 7.4 GM/DL (6.4-8.2)
--- NOTE | 2017-10-17 07:46 | HHI.PR ---
Subjective Remarks intubated sedated Objective Vital Signs Date Time Temp Pulse Resp B/P (MAP) Pulse Ox O2 Delivery O2 Flow Rate FiO2 10/17/17 06:00 70 10/17/17 04:20 96 40 10/17/17 04:00 76 10/17/17 04:00 100.2 80 32 164/79 (107) 64 10/17/17 04:00 50 10/17/17 02:00 77 10/17/17 00:00 79 10/17/17 00:00 50 10/17/17 00:00 101.8 80 26 167/79 (108) 96 10/16/17 22:10 99 40 10/16/17 22:00 79 10/16/17 20:00 50 10/16/17 20:00 79 10/16/17 20:00 102.1 79 25 145/79 (101) 95 10/16/17 19:17 95 40 10/16/17 18:19 93 40 10/16/17 18:00 74 10/16/17 17:00 100 100 10/16/17 16:00 76 10/16/17 16:00 50 10/16/17 16:00 99.5 79 26 152/82 (105) 96 10/16/17 15:33 93 40 10/16/17 14:00 68 10/16/17 12:28 100 40 10/16/17 12:00 99.6 67 24 146/75 (98) 100 10/16/17 12:00 50 10/16/17 12:00 68 10/16/17 10:00 63 10/16/17 08:52 99 50 10/16/17 08:00 66 10/16/17 08:00 101.4 73 24 147/77 (100) 98 10/16/17 08:00 50 I/O 10/16/17 10/16/17 10/16/17 10/17/17 10/17/17 10/17/17 07:00 15:00 23:00 07:00 15:00 23:00 Intake Total 995 ml 750 ml 350 ml 60 ml Output Total 1550 ml 0 ml 3325.0 ml 2450 ml Balance -555 ml 750 ml -2975.0 ml -2390 ml IV Total 755 ml 750 ml 350 ml Tube Feeding 180 ml 0 ml Tube Irrigant 60 ml 60 ml Output Urine Total 1550 ml 3300 ml 2450 ml Gastric Drainage Total 25 ml 0 ml Tube Feeding Residual Discard 0 ml 0 ml 0 ml 0 ml # Bowel Movements 0 1 2 Result Diagram: 10/17/1743810/17/17438 Objective Remarks ppupil small = no change on vent sedated Assessment and Plan Assessment and Plan imp eeg ok mri no cva large left>r edema and left changes project more posteriorly and some left to right subfalcian herniation i dw he will have sign deficits and this is a 6 month at least rehab period i think will awaken eventualy with deficits Jacob Dahl MD Oct 17, 2017 07:46
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
[2017-10-17] MEDS: ARTIFICIAL TEARS OPTH SOLN 15 ML BTL EACH EYE SCH ×3 (09:00→18:00)
[2017-10-17] MEDS: CHLORHEXIDINE 0.12% (ORAL KIT) 15 ML CUP MT SCH ×2 (09:14→20:00)
[2017-10-17] MEDS: SODIUM CHLORIDE 0.9% FLUSH 10 ML FLUSH IV FLUSH PRN (09:15)
[2017-10-17] MEDS: FOLIC ACID 1 MG TAB OG-TUBE SCH (09:16)
[2017-10-17] MEDS: MULTIVITAMIN TAB OG-TUBE SCH (09:16)
[2017-10-17] MEDS: SODIUM CHLORIDE 1 GRAM TAB PO SCH ×2 (09:16→20:39)
[2017-10-17] MEDS: SENNOSIDES SYRUP 8.8 MG/5 ML CUP PO SCH (09:16)
[2017-10-17] MEDS: LACTULOSE SYRUP 20 GM/30 ML CUP PO SCH (09:16)
[2017-10-17] MEDS: FAMOTIDINE 20 MG/2 ML VIAL IV PUSH SCH ×2 (09:16→20:40)
[2017-10-17] MEDS: MAGNESIUM HYDROXIDE SUSP 30 ML CUP PO SCH ×2 (09:16→20:41)
[2017-10-17] MEDS: THIAMINE INJ 100 MG in SODIUM CHLORIDE 0.9% INJ 100 ML IV SCH (09:16)
[2017-10-17] MEDS: VANCOMYCIN 1,000 MG/NS 250 ML IV SCH ×4 (09:28→20:40)
[2017-10-17] MEDS: levETIRAcetam INJ 500 MG in SODIUM CHLORIDE 0.9% INJ 100 ML IV SCH ×2 (09:45→20:39)
[2017-10-17] MEDS: fentaNYL DRIP 250 ML IV PRN (09:54)
[2017-10-17] MEDS ORDERED: ROCURONIUM INJ 50 MG/5 ML VIAL IV ONE (10:15)
[2017-10-17] MEDS: 3% SALINE INJ 500 ML IV SCH (10:47)
[2017-10-17] MEDS ORDERED: PROPOFOL 200 MG/20 ML AMP IV ONE (12:00)
[2017-10-17] MEDS: ENOXAPARIN SODIUM 40 MG/0.4 ML SYRINGE SQ SCH (13:16)
--- NOTE | 2017-10-17 14:12 | PD.PROCEDR ---
Procedure Note Procedure Procedure: Diagnostic Fiberoptic Bronchoscopy Diagnosis: Chronic respiratory failure Indications: Need for placement of percutaneous dilation tracheostomy Consent: Written consent was obtained Anesthesia: Propofol and fentanyl infusions were continued through the procedure. One dose of vecuronium 50 mg was given Description of the Procedure: The patient was sedated and mechanically ventilated. The patient was placed on 100% FIO2 and a volume control mode of ventilation. The fiberoptic bronchoscope was inserted via oral endotracheal tube. The trachea, right and left mainstem bronchi were evaluated. The endobronchial anatomy was normal. At this point, the percutaneous dilation tracheostomy procedure was performed. The needle, guidewire, dilator, and tracheostomy were all performed under direct bronchoscopic guidance and visualization. Once the tracheostomy was in place, the bronchoscope was inserted through the tracheostomy, and the lumen of the tracheostomy was confirmed in the lumen of the trachea prior to any positive pressure ventilation. BAL samples: Not sent The patient tolerated the procedure well with no hemodynamic instability or hypoxia. There were no immediate complications noted. At the conclusion of the procedure, the patient was placed back on their pre-procedure ventilatory settings. There was minimal EBL. A chest x-ray has been ordered. Lane Marshall MD Oct 17, 2017 14:12
--- NOTE | 2017-10-17 14:40 | RADRPT ---
EXAM DATE/TIME: 10/17/2017 13:43 [facility] COMPARISON: CHEST SINGLE AP, October 17, 2017, 2:47. INDICATIONS : Post trach placement. MEDICAL HISTORY : None. SURGICAL HISTORY : Knee surgery and bilateral craniotomy. ENCOUNTER: Subsequent ACUITY: 1 week PAIN SCORE: Non-responsive. LOCATION: Bilateral chest FINDINGS: A single view of the chest demonstrates mild cardiomegaly. Bilateral perihilar edema has almost compl etely resolved. Tracheostomy tube with tip 5 cm above the gerda. Right jugular central line stable.. Osseous structures are intact. CONCLUSION: Bilateral perihilar edema has almost completely resolved. Adequate placement of tracheostomy tube.. Fredrick Liu MD on October 17, 2017 at 14:36 Board Certified Radiologist. This report was verified electronically.
--- NOTE | 2017-10-17 15:07 | GIPROC ---
[facility] [address] [facility]. [facility], [address] EGD WITH PEG PROCEDURE REPORT EXAM DATE: 10/17/2017 PATIENT NAME: Jagdeep Mancia MR#: [id number] BIRTHDATE: 1975 ATTENDING: Bobbi Berrios MD ORDER #: [id number] [employer]: Cristian Cohn and Catrina Crocker STATUS: inpatient INDICATIONS: The patient is a 42 yr old male here for an EGD with PEG due to dysphagia PROCEDURE PERFORMED: EGD with PEG placement MEDICATIONS: None and Per Anesthesia. TOPICAL ANESTHETIC: none CONSENT: The patient understands the risks and benefits of the procedure and understands that these risks include, but are not limited to: sedation, allergic reaction, infection, perforation and/or bleeding. Alternative means of evaluation and treatment include, among others: physical exam, x-rays, and/or surgical intervention. The patient elects to proceed with this endoscopic procedure. medical equipment was checked for proper function. Hand hygiene and appropriate measures for infection prevention was taken. After the risks, benefits and alternatives of the procedure were thoroughly explained, Informed consent was verified, confirmed and timeout was successfully executed by the treatment team. The patient was anesthetized with topical anesthesia and the Pentax [id number] endoscope was introduced through the mouth and advanced to the second portion of the duodenum. The instrument was slowly withdrawn as the mucosa was fully examined. (none) (none) The stomach was then inflated with air, and by a combination of transillumination and manual palpation, the site for the gastrostomy tube placement was selected and marked on the anterior abdominal wall. The skin of the anterior abdomen was surgically prepped and draped with sterile towels. Utilizing strict sterile technique, the selected site was then anesthetized with 1% xylocaine by injection into the skin and subcutaneous tissue. A 1 cm incision was made through the skin and subcutaneous tissue, and the needle/cannula assembly was then passed through the abdominal wall and through the anterior wall of the stomach, maintaining visualization with the endoscope. A snare device previously placed through the instrument channel was then opened and placed around the cannula, the needle was removed, and the insertion wire was passed through the cannula and into the stomach lumen. The snare was then loosened from the cannula, and repositioned to snare the insertion wire. The snare was then pulled up to the endoscope distal tip, and the scope was then withdrawn bringing with it the snare and insertion wire. The insertion wire was then released from the snare, and then loop-attached to the gastrostomy tube. Using the "pull technique", the G-tube was then pulled into place by traction on the insertion wire at the abdominal wall end. The G-tube insertion site was then cleansed once again, and the external bolster was placed over the tube to secure it to the abdominal wall. A sterile dressing was then applied, and the procedure terminated. a hiatal hernia The gastroscope was then slowly withdrawn and removed. egd normal ADVERSE EVENT: There were no complications. IMPRESSIONS: 1. normal stomach) 2. A hiatal hernia RECOMMENDATIONS: npo except for medications start tf in am ok to use tube for medications only today REPEAT EXAM: procedure as needed Bobbi Berrios MD eSigned: Bobbi Berrios MD 10/17/2017 3:07 PM cc: PATIENT NAME: Jagdeep Mancia MR#: [id number]
[2017-10-17] MEDS ORDERED: SODIUM CHLOR 0.9% 250 ML INJ 250 ML IV ONE (15:15)
--- NOTE | 2017-10-17 15:46 | HHI.NSPN ---
History Chief Complaint: Accident Interval History Nurses report no significant change. Continues on maximal support System Review Comments No change Exam Results Vital Signs Date Time Temp Pulse Resp B/P (MAP) Pulse Ox O2 Delivery O2 Flow Rate FiO2 10/17/17 14:00 77 10/17/17 13:29 100 100 10/17/17 12:00 99.3 24 141/73 (95) Intake and Output 10/17/17 10/17/17 10/18/17 08:00 16:00 00:00 Intake Total 60 ml Output Total 2450 ml Balance -2390 ml Physical Examination Remains sedated and intubated Wounds are clean Patient remains comatose Tends to posture in the upper extremities in a decerebrate fashion Tends to withdraw the lower extremities Lab, Micro, Other Results MRI reviewed. No significant change from CT of October 13 Medical Decision Making Impression and Plan Patient is stable. No significant change Continue close support Howie Drake MD Oct 17, 2017 15:46
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
[2017-10-18] VITALS (17 sets, daily range): BP systolic 121–166; BP diastolic 69–101; PULSE 70–124; RESP 18–24; TEMP 100–101.3; O2SAT 96–100
[2017-10-18] MEDS: PROPOFOL 1000 MG/100 ML INJ 100 ML IV PRN ×2 (03:00→09:09)
[2017-10-18] MEDS: fentaNYL DRIP 250 ML IV PRN (03:00)
[2017-10-18] MEDS: AZTREONAM INJ 1,000 MG in SODIUM CHLORIDE 0.9% INJ 100 ML IV SCH ×3 (04:04→20:35)
[2017-10-18 04:58] LABS: BASOPHIL % 0.4 % (0.0-2.0); EOSINOPHIL # 0.1 TH/MM3 (0-0.4); EOSINOPHIL % 0.7 % (0.0-4.0); HEMATOCRIT 28.1 % (39.0-51.0); HEMOGLOBIN 9.7 GM/DL (13.0-17.0); LYMPH % 9.3 % (9.0-44.0); MEAN CELL VOLUME 87.9 FL (80.0-100.0); MEAN CORPUSCULAR HEMOGLOBIN 30.5 PG (27.0-34.0); MEAN CORPUSCULAR HGB CONC 34.6 % (32.0-36.0); MEAN PLATELET VOLUME 7.7 FL (7.0-11.0); MONO % 7.2 % (0.0-8.0); MONOCYTE # 0.8 TH/MM3 (0-0.9); NEUT % 82.4 % (16.0-70.0); PLATELET COUNT 331 TH/MM3 (150-450); RED BLOOD COUNT 3.19 MIL/MM3 (4.50-5.90); RED CELL DISTRIBUTION WIDTH 14.1 % (11.6-17.2); WHITE BLOOD COUNT 10.9 TH/MM3 (4.0-11.0)
[2017-10-18 05:16] LABS: BICARBONATE 25.6 MEQ/L (21.0-32.0); CALCIUM 8.8 MG/DL (8.5-10.1); CREATININE 0.76 MG/DL (0.60-1.30)
[2017-10-18] MEDS: ACETAMINOPHEN 1000 MG/100 ML 100 ML IV PRN ×3 (06:15→21:31)
[2017-10-18] MEDS: LACTULOSE SYRUP 20 GM/30 ML CUP PO SCH (09:00)
[2017-10-18] MEDS: MAGNESIUM HYDROXIDE SUSP 30 ML CUP PO SCH ×2 (09:00→20:36)
[2017-10-18] MEDS: ARTIFICIAL TEARS OPTH SOLN 15 ML BTL EACH EYE SCH ×3 (09:00→18:00)
[2017-10-18] MEDS: SENNOSIDES SYRUP 8.8 MG/5 ML CUP PO SCH (09:00)
[2017-10-18] MEDS: CHLORHEXIDINE 0.12% (ORAL KIT) 15 ML CUP MT SCH ×2 (09:09→20:00)
[2017-10-18] MEDS: SODIUM CHLORIDE 0.9% FLUSH 10 ML FLUSH IV FLUSH PRN (09:09)
[2017-10-18] MEDS: levETIRAcetam INJ 500 MG in SODIUM CHLORIDE 0.9% INJ 100 ML IV SCH ×2 (09:11→20:36)
[2017-10-18] MEDS: VANCOMYCIN 1,000 MG/NS 250 ML IV SCH ×4 (09:11→20:34)
[2017-10-18] MEDS: FAMOTIDINE 20 MG/2 ML VIAL IV PUSH SCH ×2 (09:12→20:31)
[2017-10-18] MEDS: FOLIC ACID 1 MG TAB OG-TUBE SCH (09:12)
[2017-10-18] MEDS: THIAMINE INJ 100 MG in SODIUM CHLORIDE 0.9% INJ 100 ML IV SCH (09:12)
[2017-10-18] MEDS: SODIUM CHLORIDE 1 GRAM TAB PO SCH ×2 (09:12→20:36)
[2017-10-18] MEDS: MULTIVITAMIN TAB OG-TUBE SCH (09:12)
[2017-10-18] MEDS: 3% SALINE INJ 500 ML IV SCH (09:34)
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
[2017-10-18] MEDS: SODIUM CHLORIDE 23.4% INJ 188 MEQ in SODIUM CHLOR 0.9% 1000 ML INJ 1,000 ML IV SCH (11:41)
[2017-10-18] MEDS: ENOXAPARIN SODIUM 40 MG/0.4 ML SYRINGE SQ SCH (12:03)
--- NOTE | 2017-10-18 15:12 | HHI.NSPN ---
History Chief Complaint: Accident Interval History Nurses report no significant change. Continues on maximal support Exam Results Vital Signs Date Time Temp Pulse Resp B/P (MAP) Pulse Ox O2 Delivery O2 Flow Rate FiO2 10/18/17 14:52 97 35 10/18/17 06:00 87 10/18/17 04:00 100.2 24 151/77 (101) Intake and Output 10/18/17 10/18/17 10/19/17 08:00 16:00 00:00 Intake Total 450 ml 716 ml Output Total 2400 ml Balance -1950 ml 716 ml Physical Examination Remains sedated and intubated Wounds are clean Patient remains comatose Tends to posture in the upper extremities in a decerebrate fashion Tends to withdraw the lower extremities Craniectomy flap tends to bulge out Medical Decision Making Impression and Plan Patient is stable. No significant change Continue close support. CT scan in Howie Peters MD Oct 18, 2017 15:12
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
[2017-10-19] VITALS (17 sets, daily range): BP systolic 133–164; BP diastolic 68–93; PULSE 74–104; RESP 21–28; TEMP 99.3–101.4; O2SAT 96–100
[2017-10-19] MEDS: CHLORHEXIDINE GLUCONATE 2 % 1 PACK (2 CLOTHS) TOP SCH (00:25)
[2017-10-19] MEDS: ACETAMINOPHEN 1000 MG/100 ML 100 ML IV PRN ×3 (03:40→16:05)
[2017-10-19] MEDS: AZTREONAM INJ 1,000 MG in SODIUM CHLORIDE 0.9% INJ 100 ML IV SCH ×3 (05:16→20:31)
--- NOTE | 2017-10-19 05:16 | RADRPT ---
EXAM DATE/TIME: 10/19/2017 04:39 [facility] COMPARISON: CT BRAIN W/O CONTRAST, October 13, 2017, 17:26. INDICATIONS : Follow up trauma. RADIATION DOSE: 56.35 CTDIvol (mGy) MEDICAL HISTORY : Non-responsive. SURGICAL HISTORY : Non-responsive. ENCOUNTER: Subsequent ACUITY: 1 week PAIN SCALE: Non-responsive LOCATION: cranial TECHNIQUE: Multiple contiguous axial images were obtained of the head. Using automated exposure control and adj ustment of the mA and/or kV according to patient size, radiation dose was kept as low as reasonably a chievable to obtain optimal diagnostic quality images. DICOM format image data is available electro nically for review and comparison. FINDINGS: Extensive postsurgical changes are again noted status post bilateral craniotomy with extensive e mauro again noted in both hemispheres with loss of the lopez-white differentiation. There is a low dens ity subdural collection along the left parietal convexities without change. The ventricular system is not significantly changed. There is slight effacement of the left lateral ventricle with minimal mid line shift again noted. The hemorrhages in the left temporal and frontal lobes continue to evolve slo wly with decreased high density and fairly stable edema. There is no new hemorrhage or mass effect. T he posterior fossa and brainstem remain intact. The skull fractures unchanged. CONCLUSION: No significant interval change. Sam Jovel MD on October 19, 2017 at 5:10 Board Certified Radiologist. This report was verified electronically.
[2017-10-19 05:54] LABS: AUTOMATED NEUTROPHIL # 7.6 TH/MM3 (1.8-7.7); BASOPHIL % 0.2 % (0.0-2.0); EOSINOPHIL # 0.1 TH/MM3 (0-0.4); EOSINOPHIL % 0.9 % (0.0-4.0); HEMOGLOBIN 9.5 GM/DL (13.0-17.0); LYMPH % 9.3 % (9.0-44.0); LYMPHOCYTE # 0.9 TH/MM3 (1.0-4.8); MEAN CELL VOLUME 88.5 FL (80.0-100.0); MEAN CORPUSCULAR HEMOGLOBIN 30.1 PG (27.0-34.0); MEAN PLATELET VOLUME 7.5 FL (7.0-11.0); MONO % 8.6 % (0.0-8.0); MONOCYTE # 0.8 TH/MM3 (0-0.9); PLATELET COUNT 345 TH/MM3 (150-450); RED BLOOD COUNT 3.16 MIL/MM3 (4.50-5.90); RED CELL DISTRIBUTION WIDTH 14.1 % (11.6-17.2); WHITE BLOOD COUNT 9.4 TH/MM3 (4.0-11.0)
[2017-10-19] MEDS: fentaNYL DRIP 250 ML IV PRN (06:30)
[2017-10-19 06:35] LABS: BICARBONATE 26.9 MEQ/L (21.0-32.0); CALCIUM 8.2 MG/DL (8.5-10.1); CREATININE 0.74 MG/DL (0.60-1.30)
[2017-10-19] MEDS: CHLORHEXIDINE 0.12% (ORAL KIT) 15 ML CUP MT SCH ×2 (07:37→20:32)
[2017-10-19] MEDS: levETIRAcetam INJ 500 MG in SODIUM CHLORIDE 0.9% INJ 100 ML IV SCH (08:33)
[2017-10-19] MEDS: ARTIFICIAL TEARS OPTH SOLN 15 ML BTL EACH EYE SCH ×3 (08:33→18:00)
[2017-10-19] MEDS: THIAMINE INJ 100 MG in SODIUM CHLORIDE 0.9% INJ 100 ML IV SCH (08:33)
[2017-10-19] MEDS: FAMOTIDINE 20 MG/2 ML VIAL IV PUSH SCH (08:33)
[2017-10-19] MEDS: SENNOSIDES SYRUP 8.8 MG/5 ML CUP PO SCH (08:34)
[2017-10-19] MEDS: FOLIC ACID 1 MG TAB OG-TUBE SCH (08:34)
[2017-10-19] MEDS: SODIUM CHLORIDE 1 GRAM TAB PO SCH ×2 (08:34→20:32)
[2017-10-19] MEDS: MULTIVITAMIN TAB OG-TUBE SCH (08:34)
[2017-10-19] MEDS: MAGNESIUM HYDROXIDE SUSP 30 ML CUP PO SCH ×2 (08:34→20:31)
[2017-10-19] MEDS: LACTULOSE SYRUP 20 GM/30 ML CUP PO SCH (08:34)
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
[2017-10-19] MEDS: ENOXAPARIN SODIUM 40 MG/0.4 ML SYRINGE SQ SCH (10:41)
[2017-10-19] MEDS: VANCOMYCIN 1,000 MG/NS 250 ML IV SCH ×4 (10:41→22:44)
--- NOTE | 2017-10-19 11:48 | HHI.NSPN ---
History Chief Complaint: Accident Interval History Nurses report no significant change. Continues on maximal support Exam Results Vital Signs Date Time Temp Pulse Resp B/P (MAP) Pulse Ox O2 Delivery O2 Flow Rate FiO2 10/19/17 10:01 96 T-piece 6.00 40 10/19/17 10:00 93 10/19/17 08:00 99.9 23 163/85 (111) Intake and Output 10/19/17 10/19/17 10/20/17 08:00 16:00 00:00 Intake Total 1078 ml Output Total 1900 ml Balance -822 ml Physical Examination Remains sedated and intubated Wounds are clean Patient remains comatose Tends to posture in the upper extremities in a decerebrate fashion Tends to withdraw the lower extremities Craniectomy flap tends to bulge out Lab, Micro, Other Results CT scan reviewed evolution of previous hemorrhages with improvement. Ventricles are midline Medical Decision Making Impression and Plan Patient is stable. No significant clinical change Continue close support. Howie Drake MD Oct 19, 2017 11:47
[2017-10-19] MEDS: METOPROLOL TARTRATE 5 MG/5 ML VIAL IV PUSH SCH ×2 (12:09→16:05)
[2017-10-19] MEDS: oxyCODONE HCL ORAL CONC 5 MG/0.25 ML SYRINGE PO SCH ×3 (12:10→19:00)
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
[2017-10-19] MEDS: SODIUM CHLORIDE 23.4% INJ 188 MEQ in SODIUM CHLOR 0.9% 1000 ML INJ 1,000 ML IV SCH (14:30)
[2017-10-19] MEDS: levETIRAcetam 500 MG/5 ML UDC NG SCH (20:31)
[2017-10-19] MEDS: BACITRACIN TOP OINT 15 GM TUBE TOPICAL SCH (20:32)
[2017-10-19] MEDS: FAMOTIDINE 20 MG TAB PO SCH (20:32)
[2017-10-20] VITALS (20 sets, daily range): BP systolic 116–155; BP diastolic 68–93; PULSE 80–121; RESP 25–29; TEMP 100.1–101.8; O2SAT 92–100
[2017-10-20] MEDS: oxyCODONE HCL ORAL CONC 5 MG/0.25 ML SYRINGE PO SCH ×7 (00:32→23:33)
[2017-10-20] MEDS: METOPROLOL TARTRATE 5 MG/5 ML VIAL IV PUSH SCH ×2 (00:33→05:18)
[2017-10-20] MEDS: ACETAMINOPHEN 1000 MG/100 ML 100 ML IV PRN ×4 (00:56→20:48)
[2017-10-20] MEDS: CHLORHEXIDINE GLUCONATE 2 % 1 PACK (2 CLOTHS) TOP SCH (04:27)
[2017-10-20] MEDS: AZTREONAM INJ 1,000 MG in SODIUM CHLORIDE 0.9% INJ 100 ML IV SCH ×2 (05:19→14:07)
[2017-10-20 05:53] LABS: AUTOMATED NEUTROPHIL # 9.3 TH/MM3 (1.8-7.7); BASOPHIL % 0.4 % (0.0-2.0); EOSINOPHIL # 0.2 TH/MM3 (0-0.4); EOSINOPHIL % 1.4 % (0.0-4.0); HEMATOCRIT 31.8 % (39.0-51.0); HEMOGLOBIN 10.7 GM/DL (13.0-17.0); LYMPH % 8.9 % (9.0-44.0); MEAN CELL VOLUME 87.9 FL (80.0-100.0); MEAN CORPUSCULAR HEMOGLOBIN 29.6 PG (27.0-34.0); MEAN CORPUSCULAR HGB CONC 33.7 % (32.0-36.0); MEAN PLATELET VOLUME 7.8 FL (7.0-11.0); MONO % 7.7 % (0.0-8.0); MONOCYTE # 0.9 TH/MM3 (0-0.9); NEUT % 81.6 % (16.0-70.0); PLATELET COUNT 423 TH/MM3 (150-450); RED BLOOD COUNT 3.62 MIL/MM3 (4.50-5.90); RED CELL DISTRIBUTION WIDTH 13.9 % (11.6-17.2); WHITE BLOOD COUNT 11.4 TH/MM3 (4.0-11.0)
[2017-10-20 05:55] LABS: CALCIUM 8.4 MG/DL (8.5-10.1); CREATININE 0.62 MG/DL (0.60-1.30)
--- NOTE | 2017-10-20 06:20 | RADRPT ---
EXAM DATE/TIME: 10/20/2017 04:47 [facility] COMPARISON: CHEST SINGLE AP, October 17, 2017, 13:43. INDICATIONS : Short of breath. MEDICAL HISTORY : None. SURGICAL HISTORY : Knee surgery and bilateral craniotomy. ENCOUNTER: Subsequent ACUITY: 1 week PAIN SCORE: 0/10 LOCATION: Bilateral chest FINDINGS: A single view of the chest demonstrates minimal perihilar/basilar densities. Heart normal size. Trach eostomy tube unchanged. Right jugular central line removed. The cardiomediastinal contours are unrema rkable. Osseous structures are intact. CONCLUSION: Persistent minimal perihilar/basilar densities. Fredrick Liu MD on October 20, 2017 at 6:16 Board Certified Radiologist. This report was verified electronically.
[2017-10-20] MEDS: THIAMINE INJ 100 MG in SODIUM CHLORIDE 0.9% INJ 100 ML IV SCH (07:47)
[2017-10-20] MEDS: levETIRAcetam 500 MG/5 ML UDC NG SCH ×2 (07:47→20:48)
[2017-10-20] MEDS: LACTULOSE SYRUP 20 GM/30 ML CUP PO SCH (07:48)
[2017-10-20] MEDS: CHLORHEXIDINE 0.12% (ORAL KIT) 15 ML CUP MT SCH ×2 (07:48→20:48)
[2017-10-20] MEDS: FAMOTIDINE 20 MG TAB PO SCH ×2 (07:48→20:49)
[2017-10-20] MEDS: SENNOSIDES SYRUP 8.8 MG/5 ML CUP PO SCH (07:48)
[2017-10-20] MEDS: FOLIC ACID 1 MG TAB OG-TUBE SCH (07:48)
[2017-10-20] MEDS: SODIUM CHLORIDE 1 GRAM TAB PO SCH ×2 (07:48→20:49)
[2017-10-20] MEDS: MAGNESIUM HYDROXIDE SUSP 30 ML CUP PO SCH ×2 (07:48→20:48)
[2017-10-20] MEDS: MULTIVITAMIN TAB OG-TUBE SCH (07:48)
[2017-10-20] MEDS: ARTIFICIAL TEARS OPTH SOLN 15 ML BTL EACH EYE SCH ×3 (07:49→17:29)
[2017-10-20] MEDS: BACITRACIN TOP OINT 15 GM TUBE TOPICAL SCH ×2 (07:49→20:49)
[2017-10-20] MEDS: ENOXAPARIN SODIUM 40 MG/0.4 ML SYRINGE SQ SCH (10:26)
[2017-10-20] MEDS: VANCOMYCIN 1,000 MG/NS 250 ML IV SCH ×2 (10:27)
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
[2017-10-20] MEDS: LISINOPRIL 10 MG TAB PO SCH ×2 (12:32→20:49)
--- NOTE | 2017-10-20 12:32 | PD.WCN.NOT ---
Wound Consult Description: Wound consult ordered by for coccyx/buttocks Communicated with: Anders JOHNSON [address] [place] [id number], Recommendation: 1. Reposition patient every 2 hours for comfort and offloading. 2. Avoid placing patient on cotton underpad or using foam dressings on coccyx. Additional Information: Patient was seen today on [address] [place] [address] by telegraphic typewriter operator chief and Anders JOHNSON [address] [place] [address] for assessment of coccyx/buttocks.Spouse present at bedside.Patient currently trach and vented and placed on a cooling mat surface.Patient was repositioned to left side with assistance of Anders JOHNSON .Foam dressing removed from coccyx.Rectal bag intact no reddened areas noted to buttock/coccyx skin is cool ,dry,intact and blanchable in all areas.Patient was offloaded to left side with pillows placed under right side.Spouse has no questions at this time.Patient resting comfortably upon writers departure. Tomeka Muse [facility] Oct 20, 2017 12:32
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
[2017-10-20] MEDS: PROPRANOLOL HCL 10 MG TAB PO SCH ×2 (14:06→20:49)
[2017-10-20] MEDS: SODIUM CHLORIDE 23.4% INJ 188 MEQ in SODIUM CHLOR 0.9% 1000 ML INJ 1,000 ML IV SCH (14:06)
[2017-10-20] MEDS: cloNIDine HCL 0.1 MG/24 HR PATCH T-DERMAL SCH (14:06)
[2017-10-20] MEDS: QUEtiapine FUMARATE 25 MG TAB PO SCH ×2 (14:06→20:49)
[2017-10-20] MEDS ORDERED: Vancomycin Consult Pharmacy 1 EA OTHER SCH (16:15)
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
[2017-10-20] MEDS: CEFEPIME INJ 2,000 MG in SODIUM CHLORIDE 0.9% INJ 100 ML IV SCH ×2 (17:29→20:48)
[2017-10-20 19:00] LABS: AMORPHOUS SEDIMENT, URINE RARE; BILIRUBIN, URINE NEG (NEG); BLOOD, URINE NEG (NEG); GLUCOSE,URINE NEG (NEG); HYALINE CAST, URINE 1 /lpf (RARE); KETONE, URINE NEG (NEG); MUCUS URINE FEW /lpf (OCC); NITRITE,URINE NEG (NEG); SQUAMOUS EPITHELIAL CELL URINE <1 /hpf (0-5); URINE COLOR YELLOW (YELLW/STRAW); URINE LEUKOCYTE ESTERASE NEG (NEG)
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
[2017-10-20] MEDS ORDERED: VANCOMYCIN INJ 2,000 MG in SODIUM CHLORID 0.9% 500 ML INJ 500 ML IV ONE (21:00)
--- NOTE | 2017-10-20 23:03 | RADRPT ---
EXAM DATE/TIME: 10/20/2017 21:52 [facility] COMPARISON: No previous studies available for comparison. INDICATIONS : Bilateral arm swelling. MEDICAL HISTORY : Hearing loss. PTSD. Traumatic brain injury. SURGICAL HISTORY : Knee surgery. ENCOUNTER: Initial ACUITY: 1 day PAIN SCORE: Non-responsive LOCATION: Bilateral arm. FINDINGS: RIGHT UPPER EXTREMITY: There is nonocclusive thrombus in the right basilic vein. No thrombus within the brachial, cephalic, axillary or subclavian veins. LEFT UPPER EXTREMITY: There is nonocclusive thrombus within the left basilic vein. No thrombus within the brachial, cephali c, axillary or subclavian veins. CONCLUSION: Nonocclusive thrombus within the basilic veins bilaterally. Fredrick Liu MD on October 20, 2017 at 23:00 Board Certified Radiologist. This report was verified electronically.
[2017-10-21] VITALS (19 sets, daily range): BP systolic 119–174; BP diastolic 64–91; PULSE 83–130; RESP 18–26; TEMP 99.5–101; O2SAT 96–100
[2017-10-21] MEDS: CHLORHEXIDINE GLUCONATE 2 % 1 PACK (2 CLOTHS) TOP SCH ×2 (03:11→23:51)
[2017-10-21] MEDS: oxyCODONE HCL ORAL CONC 5 MG/0.25 ML SYRINGE PO SCH ×6 (03:21→23:06)
[2017-10-21] MEDS: hydrALAZINE HCL 20 MG/ML VIAL IV PUSH PRN (03:21)
[2017-10-21] MEDS: ACETAMINOPHEN 1000 MG/100 ML 100 ML IV PRN ×4 (03:23→21:59)
[2017-10-21 04:26] LABS: AUTOMATED NEUTROPHIL # 10.8 TH/MM3 (1.8-7.7); BASOPHIL # 0.1 TH/MM3 (0-0.2); BASOPHIL % 0.5 % (0.0-2.0); EOSINOPHIL # 0.2 TH/MM3 (0-0.4); EOSINOPHIL % 1.7 % (0.0-4.0); HEMATOCRIT 31.8 % (39.0-51.0); HEMOGLOBIN 10.8 GM/DL (13.0-17.0); LYMPH % 10.4 % (9.0-44.0); LYMPHOCYTE # 1.4 TH/MM3 (1.0-4.8); MEAN CELL VOLUME 86.9 FL (80.0-100.0); MEAN CORPUSCULAR HEMOGLOBIN 29.6 PG (27.0-34.0); MEAN PLATELET VOLUME 7.5 FL (7.0-11.0); MONO % 6.6 % (0.0-8.0); MONOCYTE # 0.9 TH/MM3 (0-0.9); NEUT % 80.8 % (16.0-70.0); PLATELET COUNT 556 TH/MM3 (150-450); RED BLOOD COUNT 3.66 MIL/MM3 (4.50-5.90); RED CELL DISTRIBUTION WIDTH 14.3 % (11.6-17.2); WHITE BLOOD COUNT 13.5 TH/MM3 (4.0-11.0)
[2017-10-21 04:52] LABS: ALBUMIN 2.2 GM/DL (3.4-5.0); AST (GOT) 54 U/L (15-37); BICARBONATE 24.7 MEQ/L (21.0-32.0); BLOOD UREA NITROGEN 17 MG/DL (7-18); CALCIUM 8.5 MG/DL (8.5-10.1); CHLORIDE 106 MEQ/L (98-107); CREATININE 0.57 MG/DL (0.60-1.30); GLOMERULAR FILTRATION RATE 156 ML/MIN (>89); GLUCOSE,RANDOM 112 MG/DL (74-106); SODIUM (NA) 141 MEQ/L (136-145)
[2017-10-21 04:55] LABS: ALKALINE PHOSPHATASE 149 U/L (45-117); ALT (GPT) 96 U/L (12-78); TOTAL BILIRUBIN ADULT 0.5 MG/DL (0.2-1.0); TOTAL PROTEIN 7.2 GM/DL (6.4-8.2)
[2017-10-21] MEDS ORDERED: VANCOMYCIN INJ 1,250 MG in SODIUM CHLOR 0.9% 250 ML INJ 250 ML IV SCH (05:00)
[2017-10-21] MEDS: CEFEPIME INJ 2,000 MG in SODIUM CHLORIDE 0.9% INJ 100 ML IV SCH ×3 (05:11→21:17)
[2017-10-21] MEDS: VANCOMYCIN INJ 1,500 MG in SODIUM CHLORID 0.9% 500 ML INJ 500 ML IV SCH ×3 (05:12→21:59)
[2017-10-21] MEDS: QUEtiapine FUMARATE 25 MG TAB PO SCH ×2 (05:43→21:17)
[2017-10-21] MEDS: PROPRANOLOL HCL 10 MG TAB PO SCH ×3 (05:43→21:16)
[2017-10-21] MEDS: LISINOPRIL 10 MG TAB PO SCH ×2 (08:15→21:16)
[2017-10-21] MEDS: SENNOSIDES SYRUP 8.8 MG/5 ML CUP PO SCH (08:15)
[2017-10-21] MEDS: FAMOTIDINE 20 MG TAB PO SCH ×2 (08:15→21:16)
[2017-10-21] MEDS: levETIRAcetam 500 MG/5 ML UDC NG SCH (08:15)
[2017-10-21] MEDS: CHLORHEXIDINE 0.12% (ORAL KIT) 15 ML CUP MT SCH ×2 (08:15→20:00)
[2017-10-21] MEDS: SODIUM CHLORIDE 1 GRAM TAB PO SCH ×2 (08:16→21:16)
[2017-10-21] MEDS: FOLIC ACID 1 MG TAB OG-TUBE SCH (08:16)
[2017-10-21] MEDS: ARTIFICIAL TEARS OPTH SOLN 15 ML BTL EACH EYE SCH ×3 (08:16→18:00)
[2017-10-21] MEDS: MAGNESIUM HYDROXIDE SUSP 30 ML CUP PO SCH ×2 (08:16→21:16)
[2017-10-21] MEDS: THIAMINE INJ 100 MG in SODIUM CHLORIDE 0.9% INJ 100 ML IV SCH (08:16)
[2017-10-21] MEDS: LACTULOSE SYRUP 20 GM/30 ML CUP PO SCH (08:16)
[2017-10-21] MEDS: MULTIVITAMIN TAB OG-TUBE SCH (08:16)
[2017-10-21] MEDS: BACITRACIN TOP OINT 15 GM TUBE TOPICAL SCH ×2 (08:17→21:00)
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
[2017-10-21] MEDS: ENOXAPARIN SODIUM 40 MG/0.4 ML SYRINGE SQ SCH (10:45)
[2017-10-21] MEDS: cloNIDine HCL 0.1 MG/24 HR PATCH T-DERMAL SCH (10:46)
[2017-10-21] MEDS: SODIUM CHLORIDE 23.4% INJ 188 MEQ in SODIUM CHLOR 0.9% 1000 ML INJ 1,000 ML IV SCH (10:46)
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
[2017-10-21] MEDS ORDERED: PHARMACY ORDERED LAB ONE ×2 (18:45→20:45)
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
[2017-10-21] MEDS: SODIUM CHLORIDE 0.9% FLUSH 10 ML FLUSH IV FLUSH PRN (21:17)
[2017-10-22] VITALS (17 sets, daily range): BP systolic 124–153; BP diastolic 66–85; PULSE 72–115; RESP 18–27; TEMP 99.2–100.2; O2SAT 94–100
[2017-10-22] MEDS: oxyCODONE HCL ORAL CONC 5 MG/0.25 ML SYRINGE PO SCH ×4 (02:06→21:28)
[2017-10-22] MEDS: VANCOMYCIN INJ 1,500 MG in SODIUM CHLORID 0.9% 500 ML INJ 500 ML IV SCH ×3 (04:28→21:28)
[2017-10-22] MEDS: PROPRANOLOL HCL 10 MG TAB PO SCH ×3 (04:51→21:27)
[2017-10-22] MEDS: ACETAMINOPHEN 1000 MG/100 ML 100 ML IV PRN ×4 (04:51→22:29)
[2017-10-22] MEDS: CEFEPIME INJ 2,000 MG in SODIUM CHLORIDE 0.9% INJ 100 ML IV SCH ×3 (04:52→21:28)
[2017-10-22 05:19] LABS: AUTOMATED NEUTROPHIL # 6.7 TH/MM3 (1.8-7.7); BASOPHIL # 0.1 TH/MM3 (0-0.2); BASOPHIL % 0.6 % (0.0-2.0); EOSINOPHIL # 0.3 TH/MM3 (0-0.4); EOSINOPHIL % 2.9 % (0.0-4.0); HEMATOCRIT 32.7 % (39.0-51.0); LYMPH % 13.4 % (9.0-44.0); LYMPHOCYTE # 1.2 TH/MM3 (1.0-4.8); MEAN CELL VOLUME 89.8 FL (80.0-100.0); MEAN CORPUSCULAR HEMOGLOBIN 30.3 PG (27.0-34.0); MEAN CORPUSCULAR HGB CONC 33.7 % (32.0-36.0); MONO % 8.9 % (0.0-8.0); MONOCYTE # 0.8 TH/MM3 (0-0.9); NEUT % 74.2 % (16.0-70.0); PLATELET COUNT 448 TH/MM3 (150-450); RED BLOOD COUNT 3.64 MIL/MM3 (4.50-5.90); RED CELL DISTRIBUTION WIDTH 14.4 % (11.6-17.2)
[2017-10-22 05:44] LABS: ALT (GPT) 78 U/L (12-78); AST (GOT) 44 U/L (15-37); BICARBONATE 28.6 MEQ/L (21.0-32.0); BLOOD UREA NITROGEN 16 MG/DL (7-18); CALCIUM 8.4 MG/DL (8.5-10.1); CHLORIDE 108 MEQ/L (98-107); CREATININE 0.65 MG/DL (0.60-1.30); GLOMERULAR FILTRATION RATE 134 ML/MIN (>89); GLUCOSE,RANDOM 117 MG/DL (74-106); SODIUM (NA) 143 MEQ/L (136-145)
[2017-10-22 05:46] LABS: ALKALINE PHOSPHATASE 125 U/L (45-117); TOTAL BILIRUBIN ADULT 0.3 MG/DL (0.2-1.0); TOTAL PROTEIN 6.7 GM/DL (6.4-8.2)
--- NOTE | 2017-10-22 06:11 | RADRPT ---
EXAM DATE/TIME: 10/22/2017 05:13 [facility] COMPARISON: CHEST SINGLE AP, October 20, 2017, 4:47. INDICATIONS : Shortness of breath. MEDICAL HISTORY : Hearing loss. PTSD. Traumatic brain injury SURGICAL HISTORY : Knee surgery. ENCOUNTER: Subsequent ACUITY: 2 weeks PAIN SCORE: Non-responsive. LOCATION: Bilateral chest FINDINGS: A single view of the chest demonstrates perihilar engorgement. Tracheostomy tube unchanged. Minimal b ibasilar densities slightly improved. The cardiomediastinal contours are unremarkable. Osseous stru ctures are intact. CONCLUSION: Perihilar vascular engorgement and minimal bibasilar densities. Fredrick Liu MD on October 22, 2017 at 6:09 Board Certified Radiologist. This report was verified electronically.
[2017-10-22] MEDS: CHLORHEXIDINE 0.12% (ORAL KIT) 15 ML CUP MT SCH ×2 (08:00→21:27)
[2017-10-22] MEDS: MAGNESIUM HYDROXIDE SUSP 30 ML CUP PO SCH ×2 (08:39→21:00)
[2017-10-22] MEDS: SODIUM CHLORIDE 0.9% FLUSH 10 ML FLUSH IV FLUSH PRN ×2 (08:39→21:28)
[2017-10-22] MEDS: THIAMINE INJ 100 MG in SODIUM CHLORIDE 0.9% INJ 100 ML IV SCH (08:39)
[2017-10-22] MEDS: FOLIC ACID 1 MG TAB OG-TUBE SCH (08:40)
[2017-10-22] MEDS: SENNOSIDES SYRUP 8.8 MG/5 ML CUP PO SCH (08:40)
[2017-10-22] MEDS: MULTIVITAMIN TAB OG-TUBE SCH (08:40)
[2017-10-22] MEDS: SODIUM CHLORIDE 1 GRAM TAB PO SCH ×2 (08:40→21:40)
[2017-10-22] MEDS: QUEtiapine FUMARATE 25 MG TAB PO SCH (08:40)
[2017-10-22] MEDS: FAMOTIDINE 20 MG TAB PO SCH ×2 (08:40→21:40)
[2017-10-22] MEDS: LISINOPRIL 10 MG TAB PO SCH ×2 (08:40→21:27)
[2017-10-22] MEDS: LACTULOSE SYRUP 20 GM/30 ML CUP PO SCH (08:40)
[2017-10-22] MEDS: ARTIFICIAL TEARS OPTH SOLN 15 ML BTL EACH EYE SCH ×3 (08:41→17:10)
[2017-10-22] MEDS: BACITRACIN TOP OINT 15 GM TUBE TOPICAL SCH ×2 (08:41→21:00)
[2017-10-22] MEDS ORDERED: FUROSEMIDE 20 MG/2 ML VIAL IV PUSH ONE (10:30)
[2017-10-22] MEDS ORDERED: ENOX40P SQ (10:33)
[2017-10-22] MEDS ORDERED: SENNSYP PO (10:33)
[2017-10-22] MEDS ORDERED: LISI10TA3 PO (10:33)
[2017-10-22] MEDS ORDERED: SODI1TAB PO (10:33)
[2017-10-22] MEDS ORDERED: CLON.1T T-DERMAL (10:33)
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
[2017-10-22] MEDS: ENOXAPARIN SODIUM 40 MG/0.4 ML SYRINGE SQ SCH (11:16)
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
[2017-10-23] VITALS (13 sets, daily range): BP systolic 132–151; BP diastolic 69–86; PULSE 77–126; RESP 18–27; TEMP 99.8–101.6; O2SAT 93–99
[2017-10-23] MEDS: CHLORHEXIDINE GLUCONATE 2 % 1 PACK (2 CLOTHS) TOP SCH (04:00)
[2017-10-23] MEDS: VANCOMYCIN INJ 1,500 MG in SODIUM CHLORID 0.9% 500 ML INJ 500 ML IV SCH (04:27)
[2017-10-23 05:23] LABS: AUTOMATED NEUTROPHIL # 4.8 TH/MM3 (1.8-7.7); BASOPHIL # 0.1 TH/MM3 (0-0.2); BASOPHIL % 0.8 % (0.0-2.0); EOSINOPHIL # 0.2 TH/MM3 (0-0.4); EOSINOPHIL % 3.1 % (0.0-4.0); HEMATOCRIT 31.1 % (39.0-51.0); HEMOGLOBIN 10.6 GM/DL (13.0-17.0); LYMPH % 15.9 % (9.0-44.0); LYMPHOCYTE # 1.1 TH/MM3 (1.0-4.8); MEAN CELL VOLUME 87.4 FL (80.0-100.0); MEAN CORPUSCULAR HEMOGLOBIN 29.8 PG (27.0-34.0); MEAN PLATELET VOLUME 7.9 FL (7.0-11.0); MONO % 10.8 % (0.0-8.0); MONOCYTE # 0.7 TH/MM3 (0-0.9); NEUT % 69.4 % (16.0-70.0); PLATELET COUNT 556 TH/MM3 (150-450); RED BLOOD COUNT 3.56 MIL/MM3 (4.50-5.90); RED CELL DISTRIBUTION WIDTH 14.1 % (11.6-17.2); WHITE BLOOD COUNT 6.9 TH/MM3 (4.0-11.0)
[2017-10-23 05:43] LABS: ALBUMIN 2.2 GM/DL (3.4-5.0); AST (GOT) 47 U/L (15-37); BICARBONATE 26.5 MEQ/L (21.0-32.0); BLOOD UREA NITROGEN 13 MG/DL (7-18); CALCIUM 8.4 MG/DL (8.5-10.1); CHLORIDE 106 MEQ/L (98-107); CREATININE 0.58 MG/DL (0.60-1.30); GLOMERULAR FILTRATION RATE 153 ML/MIN (>89); GLUCOSE,RANDOM 119 MG/DL (74-106); SODIUM (NA) 140 MEQ/L (136-145)
[2017-10-23 05:46] LABS: ALKALINE PHOSPHATASE 128 U/L (45-117); ALT (GPT) 83 U/L (12-78); TOTAL BILIRUBIN ADULT 0.4 MG/DL (0.2-1.0); TOTAL PROTEIN 7.2 GM/DL (6.4-8.2)
[2017-10-23] MEDS: oxyCODONE HCL ORAL CONC 5 MG/0.25 ML SYRINGE PO SCH ×3 (06:39→22:26)
[2017-10-23] MEDS: PROPRANOLOL HCL 10 MG TAB PO SCH ×3 (06:39→21:32)
[2017-10-23] MEDS: CEFEPIME INJ 2,000 MG in SODIUM CHLORIDE 0.9% INJ 100 ML IV SCH (06:40)
[2017-10-23] MEDS: SODIUM CHLORIDE 1 GRAM TAB PO SCH ×2 (07:59→22:26)
[2017-10-23] MEDS: THIAMINE INJ 100 MG in SODIUM CHLORIDE 0.9% INJ 100 ML IV SCH (07:59)
[2017-10-23] MEDS: FOLIC ACID 1 MG TAB OG-TUBE SCH (08:00)
[2017-10-23] MEDS: CHLORHEXIDINE 0.12% (ORAL KIT) 15 ML CUP MT SCH ×2 (08:00→20:00)
[2017-10-23] MEDS: FAMOTIDINE 20 MG TAB PO SCH ×2 (08:00→21:32)
[2017-10-23] MEDS: LISINOPRIL 10 MG TAB PO SCH ×2 (08:00→21:32)
[2017-10-23] MEDS: MULTIVITAMIN TAB OG-TUBE SCH (08:00)
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
[2017-10-23] MEDS: BACITRACIN TOP OINT 15 GM TUBE TOPICAL SCH ×2 (09:00→21:00)
[2017-10-23] MEDS: SENNOSIDES SYRUP 8.8 MG/5 ML CUP PO SCH (09:00)
[2017-10-23] MEDS: MAGNESIUM HYDROXIDE SUSP 30 ML CUP PO SCH ×2 (09:00→21:00)
[2017-10-23] MEDS: LACTULOSE SYRUP 20 GM/30 ML CUP PO SCH (09:00)
[2017-10-23] MEDS: ARTIFICIAL TEARS OPTH SOLN 15 ML BTL EACH EYE SCH ×3 (09:00→18:00)
--- NOTE | 2017-10-23 10:39 | HHI.PR ---
Subjective Remarks trached Objective Vital Signs Date Time Temp Pulse Resp B/P (MAP) Pulse Ox O2 Delivery O2 Flow Rate FiO2 10/23/17 08:00 87 10/23/17 08:00 100.5 87 21 141/71 (94) 97 10/23/17 06:00 87 10/23/17 04:00 100.3 116 18 151/83 (105) 97 10/23/17 04:00 116 10/23/17 02:00 91 10/23/17 00:00 77 10/23/17 00:00 100.1 81 23 134/69 (90) 99 10/22/17 22:00 84 10/22/17 21:40 97 T-piece 5.00 40 10/22/17 20:00 99.7 115 27 153/77 (102) 97 10/22/17 20:00 115 10/22/17 16:00 80 10/22/17 16:00 99.3 80 18 141/85 (103) 100 10/22/17 14:00 100 10/22/17 13:19 94 T-piece 70 10/22/17 13:05 100 50 10/22/17 12:00 100.2 80 21 130/73 (92) 100 10/22/17 12:00 80 I/O 10/22/17 10/22/17 10/22/17 10/23/17 10/23/17 10/23/17 07:00 15:00 23:00 07:00 15:00 23:00 Intake Total 701 ml 240 ml 1320 ml 1927 ml Output Total 1850 ml 3700 ml 2475 ml Balance -1149 ml 240 ml -2380 ml -548 ml Intake Oral 0 ml IV Total 240 ml 700 ml 1300 ml Tube Feeding 701 ml 620 ml 627 ml Output Urine Total 1800 ml 3700 ml 2475 ml Stool Total 50 ml # Bowel Movements 2 3 Result Diagram: 10/23/17 0430 10/23/17 0430 Objective Remarks pupil small = not following commands bilat ankle clonus eyes open Assessment and Plan Assessment and Plan imp eeg ok mri no cva large left>r edema and left changes project more posteriorly and some left to right subfalcian herniation i dw he will have sign deficits and this is a 6 month at least rehab period i think will awaken eventualy with deficits ------ 3/29/18 no major change will fu Jacob Bustamante MD Oct 23, 2017 10:39
[2017-10-23] MEDS: ENOXAPARIN SODIUM 40 MG/0.4 ML SYRINGE SQ SCH (12:00)
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
[2017-10-23] MEDS: ACETAMINOPHEN 650 MG/20.3 ML UDC PO PRN ×2 (13:15→22:49)
[2017-10-23] MEDS: AMANTADINE HCL SOLN 100 MG/10 ML UDC PO SCH (13:33)
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
[2017-10-23] MEDS: AMPICILLIN-SULBACTAM INJ 3 GM in SODIUM CHLORIDE 0.9% INJ 100 ML IV SCH ×2 (14:46→21:40)
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
[2017-10-24] VITALS (13 sets, daily range): BP systolic 119–153; BP diastolic 0–76; PULSE 76–110; RESP 18–22; TEMP 99.5–100.8; O2SAT 94–98
[2017-10-24] MEDS: AMPICILLIN-SULBACTAM INJ 3 GM in SODIUM CHLORIDE 0.9% INJ 100 ML IV SCH ×4 (03:23→20:25)
[2017-10-24] MEDS: CHLORHEXIDINE GLUCONATE 2 % 1 PACK (2 CLOTHS) TOP SCH (04:00)
[2017-10-24] MEDS ORDERED: PHARMACY ORDERED LAB ONE (04:45)
[2017-10-24 04:46] LABS: AUTOMATED NEUTROPHIL # 4.3 TH/MM3 (1.8-7.7); BASOPHIL # 0.1 TH/MM3 (0-0.2); BASOPHIL % 1.3 % (0.0-2.0); EOSINOPHIL # 0.1 TH/MM3 (0-0.4); EOSINOPHIL % 1.9 % (0.0-4.0); HEMATOCRIT 30.6 % (39.0-51.0); HEMOGLOBIN 10.4 GM/DL (13.0-17.0); LYMPH % 20.4 % (9.0-44.0); LYMPHOCYTE # 1.4 TH/MM3 (1.0-4.8); MEAN CELL VOLUME 87.9 FL (80.0-100.0); MEAN CORPUSCULAR HGB CONC 34.1 % (32.0-36.0); MEAN PLATELET VOLUME 8.1 FL (7.0-11.0); MONO % 12.3 % (0.0-8.0); MONOCYTE # 0.8 TH/MM3 (0-0.9); NEUT % 64.1 % (16.0-70.0); PLATELET COUNT 553 TH/MM3 (150-450); RED BLOOD COUNT 3.48 MIL/MM3 (4.50-5.90); RED CELL DISTRIBUTION WIDTH 14.5 % (11.6-17.2); WHITE BLOOD COUNT 6.7 TH/MM3 (4.0-11.0)
[2017-10-24 05:16] LABS: BICARBONATE 28.7 MEQ/L (21.0-32.0); CALCIUM 8.5 MG/DL (8.5-10.1); CREATININE 0.64 MG/DL (0.60-1.30)
[2017-10-24] MEDS: PROPRANOLOL HCL 10 MG TAB PO SCH ×3 (06:21→20:26)
[2017-10-24] MEDS: AMANTADINE HCL SOLN 100 MG/10 ML UDC PO SCH ×2 (06:21→11:53)
[2017-10-24] MEDS: oxyCODONE HCL ORAL CONC 5 MG/0.25 ML SYRINGE PO SCH ×3 (06:21→20:26)
[2017-10-24] MEDS: CHLORHEXIDINE 0.12% (ORAL KIT) 15 ML CUP MT SCH ×2 (07:44→20:00)
[2017-10-24] MEDS: ARTIFICIAL TEARS OPTH SOLN 15 ML BTL EACH EYE SCH ×3 (07:45→18:00)
[2017-10-24] MEDS: MAGNESIUM HYDROXIDE SUSP 30 ML CUP PO SCH ×2 (07:45→20:25)
[2017-10-24] MEDS: BACITRACIN TOP OINT 15 GM TUBE TOPICAL SCH ×2 (07:45→20:26)
[2017-10-24] MEDS: SENNOSIDES SYRUP 8.8 MG/5 ML CUP PO SCH (07:45)
[2017-10-24] MEDS: LACTULOSE SYRUP 20 GM/30 ML CUP PO SCH (07:45)
[2017-10-24] MEDS: FAMOTIDINE 20 MG TAB PO SCH ×2 (08:22→20:26)
[2017-10-24] MEDS: LISINOPRIL 10 MG TAB PO SCH ×2 (08:22→20:26)
[2017-10-24] MEDS: MULTIVITAMIN TAB OG-TUBE SCH (08:22)
[2017-10-24] MEDS: SODIUM CHLORIDE 1 GRAM TAB PO SCH ×2 (08:22→20:26)
[2017-10-24] MEDS: FOLIC ACID 1 MG TAB OG-TUBE SCH (08:22)
--- NOTE | 2017-10-24 08:27 | HHI.PR ---
Neuropsych Emotional Emotional: UnabletoAssess: Emotional, Anxious/Fearful, Depressed/Sad, Hostile/ Resentful, Irritable/Angry/Frustrate, Labile, Constricted/Blunted Behavior Behavior: Intact: Impulsive/Agitated, Unable to Asses: Behavior, Coping/ Acceptance, Cooperative w/ Treatment, Motivation, Frustration Tolerance/[place], Suicidal/Homicidal Risk Cognitive Cognitive: Unable to Asses: Cognitive, Attention/Concentration, Confused/ Orientation, Insight/Awareness, Judgement/Problem-Solving, Memory Psychosocial Psychosocial: Intact: Psychosocial, Family/Other Adjustment, Realistic Expectation, Unable to Asses: Self-Esteem/Confidence Progress Notes/Response to Tx Contents of Sessions: Adjustment, Level of Consciousness Time with Patient: 30 minutes Premorbid psychological status Premorbid Cognitive, Emotional and Behavioral Status: Deferred. The patient has high school years of education and is believed to have a solid work history prior to this injury. The patient has no known prior psychiatric difficulties, as described above. Substance abuse history includes alcohol use. Behavioral Reactions of Patient and Family/Support System: Unable to Assess. The patients family is experiencing ongoing issues of adjustment given the nature of the injury, and this aspect of recovery will require ongoing monitoring. Emotional/Behavioral Status of Patient and Family/Support System: Unable to Assess. Pertinent issues, if appropriate to this patients clinical care, are described in detail above. Maximizing acute care outcome It is recommended that the patient be monitored for emergent behavioral impulsivity as the medical condition evolves. This patients neuropathological challenges may limit his rehabilitation potential going forward, and these challenges will require specialized therapeutic skills to maximize outcome. Additionally, the patients family is experiencing ongoing issues of adjustment given the traumatic nature of the injury, and they may benefit from ongoing psychological assistance. At this point in the recovery process, the patient does not have cognitive capacity as the patient is unable to understand a situation and its likely consequences, nor is he able to manipulate information rationally. Cognitive capacity will be assessed throughout the recovery process. Anticipated Problems Ongoing areas of concern will include behavioral impulsivity, lack of insight and judgment, which is expected to improve with time and treatment. Presently , the patient is intubated and sedated. Given the severity of the patient's injuries it is my clinical opinion that this patient will be unable to return to any type of productive employment for at least one year, perhaps longer and likely never. This patient is not considered safe to discharge home without supervision. Treatment Plan This clinician will continue to follow with you throughout the course of this patients critical care treatment, and I will be available to meet with the patients family/support system to facilitate their understanding and the ongoing care of their family member. The goals of neuropsychological intervention shall be both educational and supportive to the family/support system as is deemed clinically appropriate. [facility] Level: III:Localized response-total assist Disinhibition Score: 14.00 Aggression Score: 14.00 Lability Score: 14.00 Agitated Behavior Total Score: 14 Impression 42 year old [place] s/p [place] [facility] [place] Diagnosis: (1) Major neurocognitive disorder as late effect of traumatic brain injury without behavioral disturbance Progress Note Narrative PTD 15. The patient is demonstrating improving consciousness, but no agitation/ restlessness. Trauma team has started Amantadine 100 q0700 & 1200. He is [place]. I will follow. Wil Baeza PhD Oct 24, 2017 8:27 am
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
[2017-10-24] MEDS: ENOXAPARIN SODIUM 40 MG/0.4 ML SYRINGE SQ SCH (11:53)
[2017-10-24] MEDS ORDERED: AMPI1INJ IV (12:37)
[2017-10-24] MEDS ORDERED: AMAN100UDC PO (12:43)
[2017-10-24] MEDS ORDERED: PERI0.126 SWISH-SPIT (12:43)
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
[2017-10-24] MEDS: SODIUM CHLORIDE 0.9% FLUSH 10 ML FLUSH IV FLUSH PRN (20:26)
[2017-10-25] MEDS: CHLORHEXIDINE GLUCONATE 2 % 1 PACK (2 CLOTHS) TOP SCH (02:31)
[2017-10-25] MEDS: AMPICILLIN-SULBACTAM INJ 3 GM in SODIUM CHLORIDE 0.9% INJ 100 ML IV SCH ×2 (02:31→08:25)
[2017-10-25 04:00] VITALS: BP 127/73; PULSE 99; RESP 22; TEMP 99.1; O2SAT 96
[2017-10-25] MEDS: PROPRANOLOL HCL 10 MG TAB PO SCH ×3 (06:34→20:27)
[2017-10-25] MEDS: oxyCODONE HCL ORAL CONC 5 MG/0.25 ML SYRINGE PO SCH ×3 (06:34→20:26)
[2017-10-25] MEDS: AMANTADINE HCL SOLN 100 MG/10 ML UDC PO SCH ×2 (06:34→12:08)
[2017-10-25 08:00] VITALS: BP 113/62; PULSE 134; RESP 18; TEMP 101.9; O2SAT 92
[2017-10-25] MEDS: MAGNESIUM HYDROXIDE SUSP 30 ML CUP PO SCH ×2 (08:29→20:27)
[2017-10-25] MEDS: CHLORHEXIDINE GLUCONATE 0.12% 15 ML CUP SWISH-SPIT SCH ×2 (08:29→20:27)
[2017-10-25] MEDS: SODIUM CHLORIDE 1 GRAM TAB PO SCH ×2 (08:29→20:27)
[2017-10-25] MEDS: LISINOPRIL 10 MG TAB PO SCH ×2 (08:32→20:27)
[2017-10-25] MEDS: ACETAMINOPHEN 650 MG/20.3 ML UDC PO PRN (08:32)
[2017-10-25] MEDS: SENNOSIDES SYRUP 8.8 MG/5 ML CUP PO SCH (08:45)
[2017-10-25] MEDS: BACITRACIN TOP OINT 15 GM TUBE TOPICAL SCH ×2 (08:46→20:27)
[2017-10-25] MEDS: ARTIFICIAL TEARS OPTH SOLN 15 ML BTL EACH EYE SCH ×3 (09:00→17:47)
[2017-10-25] MEDS: ENOXAPARIN SODIUM 40 MG/0.4 ML SYRINGE SQ SCH (11:14)
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
[2017-10-25 12:00] VITALS: BP 97/54; PULSE 111; RESP 18; TEMP 97.8; O2SAT 94
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
[2017-10-25 15:46] VITALS: BP 115/72; PULSE 100; RESP 20; TEMP 98.4; O2SAT 97
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
[2017-10-25] MEDS: CLINDAMYCIN 150 MG CAP PO SCH (17:47)
[2017-10-25 20:00] VITALS: BP 125/76; PULSE 104; RESP 18; TEMP 99.6; O2SAT 94; O2SAT 96
[2017-10-26] VITALS (7 sets, daily range): BP systolic 106–121; BP diastolic 61–75; PULSE 96–114; RESP 17–18; TEMP 97.4–99.1; O2SAT 93–97
[2017-10-26] MEDS: CLINDAMYCIN 150 MG CAP PO SCH ×4 (01:44→18:30)
[2017-10-26 03:04] LABS: BASOPHIL # 0.1 TH/MM3 (0-0.2); BASOPHIL % 1.1 % (0.0-2.0); EOSINOPHIL # 0.1 TH/MM3 (0-0.4); EOSINOPHIL % 1.5 % (0.0-4.0); HEMOGLOBIN 10.9 GM/DL (13.0-17.0); LYMPHOCYTE # 1.8 TH/MM3 (1.0-4.8); MEAN CELL VOLUME 88.2 FL (80.0-100.0); MEAN CORPUSCULAR HEMOGLOBIN 30.1 PG (27.0-34.0); MEAN CORPUSCULAR HGB CONC 34.2 % (32.0-36.0); MEAN PLATELET VOLUME 7.7 FL (7.0-11.0); MONO % 12.3 % (0.0-8.0); NEUT % 62.1 % (16.0-70.0); PLATELET COUNT 610 TH/MM3 (150-450); RED BLOOD COUNT 3.62 MIL/MM3 (4.50-5.90); RED CELL DISTRIBUTION WIDTH 14.4 % (11.6-17.2)
[2017-10-26 03:34] LABS: BICARBONATE 25.8 MEQ/L (21.0-32.0); CALCIUM 8.6 MG/DL (8.5-10.1); CREATININE 0.75 MG/DL (0.60-1.30)
--- NOTE | 2017-10-26 06:10 | RADRPT ---
EXAM DATE/TIME: 10/26/2017 05:14 [facility] COMPARISON: CHEST SINGLE AP, October 22, 2017, 5:13. INDICATIONS : Infiltrate. MEDICAL HISTORY : Hearing loss. PTSD. Traumatic brain injury SURGICAL HISTORY : Knee surgery. ENCOUNTER: Subsequent ACUITY: 2 weeks PAIN SCORE: Non-responsive. LOCATION: Bilateral chest FINDINGS: Tracheostomy in good position. Subsegmental basilar airspace disease. No effusion. No pneumothorax. H eart size mildly enlarged. CONCLUSION: 1. Subsegmental basilar air space disease, slightly increased on the left since October 26. Jose Mcdaniels MD on October 26, 2017 at 6:07 Board Certified Radiologist. This report was verified electronically.
[2017-10-26] MEDS: oxyCODONE HCL ORAL CONC 5 MG/0.25 ML SYRINGE PO SCH ×2 (07:38→21:00)
[2017-10-26] MEDS: PROPRANOLOL HCL 10 MG TAB PO SCH ×3 (07:38→22:00)
[2017-10-26] MEDS: AMANTADINE HCL SOLN 100 MG/10 ML UDC PO SCH ×2 (07:39→16:59)
[2017-10-26] MEDS: SENNOSIDES SYRUP 8.8 MG/5 ML CUP PO SCH (09:00)
[2017-10-26] MEDS: ARTIFICIAL TEARS OPTH SOLN 15 ML BTL EACH EYE SCH ×3 (09:00→18:00)
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
[2017-10-26] MEDS: MAGNESIUM HYDROXIDE SUSP 30 ML CUP PO SCH ×2 (14:25→22:48)
[2017-10-26] MEDS: LISINOPRIL 10 MG TAB PO SCH (14:25)
[2017-10-26] MEDS: SODIUM CHLORIDE 1 GRAM TAB PO SCH ×2 (14:27→22:09)
[2017-10-26] MEDS: CHLORHEXIDINE GLUCONATE 0.12% 15 ML CUP SWISH-SPIT SCH ×2 (14:28→22:09)
[2017-10-26] MEDS: ENOXAPARIN SODIUM 40 MG/0.4 ML SYRINGE SQ SCH (14:29)
[2017-10-26] MEDS ORDERED: oxyCODONE/ACETAMINOPHEN 5 MG/325 MG TAB PO PRN (14:30)
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
[2017-10-26] MEDS: BACITRACIN TOP OINT 15 GM TUBE TOPICAL SCH ×2 (16:59→22:10)
[2017-10-27] VITALS (9 sets, daily range): BP systolic 113–140; BP diastolic 64–78; PULSE 81–110; RESP 18–20; TEMP 97.9–99.6; O2SAT 91–99
[2017-10-27] MEDS: CLINDAMYCIN 150 MG CAP PO SCH ×4 (00:30→17:35)
[2017-10-27] MEDS: AMANTADINE HCL SOLN 100 MG/10 ML UDC PO SCH ×2 (05:38→13:27)
[2017-10-27] MEDS: PROPRANOLOL HCL 10 MG TAB PO SCH ×2 (05:39→21:00)
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
[2017-10-27] MEDS: CHLORHEXIDINE GLUCONATE 0.12% 15 ML CUP SWISH-SPIT SCH ×2 (09:00→21:00)
[2017-10-27] MEDS: ARTIFICIAL TEARS OPTH SOLN 15 ML BTL EACH EYE SCH ×3 (09:00→17:35)
[2017-10-27] MEDS: BACITRACIN TOP OINT 15 GM TUBE TOPICAL SCH ×2 (09:00→22:32)
[2017-10-27] MEDS: LISINOPRIL 10 MG TAB PO SCH ×2 (09:00→21:00)
[2017-10-27] MEDS: ENOXAPARIN SODIUM 40 MG/0.4 ML SYRINGE SQ SCH (09:56)
[2017-10-27] MEDS: SENNOSIDES SYRUP 8.8 MG/5 ML CUP PO SCH (09:56)
[2017-10-27] MEDS: SODIUM CHLORIDE 1 GRAM TAB PO SCH ×2 (09:56→22:28)
[2017-10-27] MEDS: MAGNESIUM HYDROXIDE SUSP 30 ML CUP PO SCH ×2 (09:57→21:00)
[2017-10-27] MEDS: REMOVE OLD CATAPRES (CLONIDINE) PATCH T-DERMAL SCH (12:00)
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
[2017-10-27] MEDS: BENEPROTEIN POWDER 1 PACK G-TUBE SCH ×2 (13:00→17:35)
[2017-10-27] MEDS: cloNIDine HCL 0.1 MG/24 HR PATCH T-DERMAL SCH (13:32)
--- NOTE | 2017-10-27 15:36 | PD.WCN.NOT ---
Wound Consult Description: Received consult from Vickie MORIN for wound management of coccyx/ bed eval Communicated with: Betty Kat [address] [place] [address], Tomeka TREVIÑO and Vickie MORIN Recommendation: Continue to turn patient every 2 hours and PRN for comfort and offloading of pressure from [place] prominences Additional Information: Attempted to see patient on [address] for coccyx wound management. Patient is up in chair Spoke with RN Aubree contreras and patient's , per and RN patient has intact erythema to buttocks that is blanchable. Explained to patient 's that patient does not meet criteria for alterative support surface at this time.Patient's verbalizes understanding. Lizabeth Evans Oct 27, 2017 15:36
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
[2017-10-27] MEDS: oxyCODONE HCL ORAL CONC 5 MG/0.25 ML SYRINGE PO SCH (21:00)
[2017-10-28] VITALS (8 sets, daily range): BP systolic 119–136; BP diastolic 73–88; PULSE 98–125; RESP 18–20; TEMP 97.4–99.3; O2SAT 93–98
[2017-10-28] MEDS: CLINDAMYCIN 150 MG CAP PO SCH ×5 (00:55→22:32)
[2017-10-28] MEDS: AMANTADINE HCL SOLN 100 MG/10 ML UDC PO SCH ×2 (06:09→11:56)
[2017-10-28] MEDS: LISINOPRIL 10 MG TAB PO SCH ×2 (08:29→22:32)
[2017-10-28] MEDS: PROPRANOLOL HCL 10 MG TAB PO SCH ×2 (08:29→22:32)
[2017-10-28] MEDS: CHLORHEXIDINE GLUCONATE 0.12% 15 ML CUP SWISH-SPIT SCH ×2 (08:30→22:52)
[2017-10-28] MEDS: SENNOSIDES SYRUP 8.8 MG/5 ML CUP PO SCH (08:30)
[2017-10-28] MEDS: MAGNESIUM HYDROXIDE SUSP 30 ML CUP PO SCH ×2 (08:32→22:13)
--- NOTE | 2017-10-28 08:46 | HHI.PR ---
Neuropsych Emotional Emotional: UnabletoAssess: Emotional, Anxious/Fearful, Depressed/Sad, Hostile/ Resentful, Irritable/Angry/Frustrate, Labile, Constricted/Blunted Behavior Behavior: Intact: Impulsive/Agitated, Unable to Asses: Behavior, Coping/ Acceptance, Cooperative w/ Treatment, Motivation, Frustration Tolerance/[place], Suicidal/Homicidal Risk Cognitive Cognitive: Unable to Asses: Cognitive, Attention/Concentration, Confused/ Orientation, Insight/Awareness, Judgement/Problem-Solving, Memory Psychosocial Psychosocial: Intact: Psychosocial, Family/Other Adjustment, Realistic Expectation, Self-Esteem/Confidence Progress Notes/Response to Tx Contents of Sessions: Adjustment, Level of Consciousness Time with Patient: 30 minutes Premorbid psychological status Premorbid Cognitive, Emotional and Behavioral Status: Deferred. The patient has high school years of education and is believed to have a solid work history prior to this injury. The patient has no known prior psychiatric difficulties, as described above. Substance abuse history includes alcohol use. Behavioral Reactions of Patient and Family/Support System: Unable to Assess. The patients family is experiencing ongoing issues of adjustment given the nature of the injury, and this aspect of recovery will require ongoing monitoring. Emotional/Behavioral Status of Patient and Family/Support System: Unable to Assess. Pertinent issues, if appropriate to this patients clinical care, are described in detail above. Maximizing acute care outcome It is recommended that the patient be monitored for emergent behavioral impulsivity as the medical condition evolves. This patients neuropathological challenges may limit his rehabilitation potential going forward, and these challenges will require specialized therapeutic skills to maximize outcome. Additionally, the patients family is experiencing ongoing issues of adjustment given the traumatic nature of the injury, and they may benefit from ongoing psychological assistance. At this point in the recovery process, the patient does not have cognitive capacity as the patient is unable to understand a situation and its likely consequences, nor is he able to manipulate information rationally. Cognitive capacity will be assessed throughout the recovery process. Anticipated Problems Ongoing areas of concern will include behavioral impulsivity, lack of insight and judgment, which is expected to improve with time and treatment. Presently , the patient is intubated and sedated. Given the severity of the patient's injuries it is my clinical opinion that this patient will be unable to return to any type of productive employment for at least one year, perhaps longer and likely never. This patient is not considered safe to discharge home without supervision. Treatment Plan This clinician will continue to follow with you throughout the course of this patients critical care treatment, and I will be available to meet with the patients family/support system to facilitate their understanding and the ongoing care of their family member. The goals of neuropsychological intervention shall be both educational and supportive to the family/support system as is deemed clinically appropriate. [facility] Level: III:Localized response-total assist Disinhibition Score: 14.00 Aggression Score: 14.00 Lability Score: 14.00 Agitated Behavior Total Score: 14 Impression 42 year old [place] s/p [place] [facility] [place] Diagnosis: (1) Major neurocognitive disorder as late effect of traumatic brain injury without behavioral disturbance Progress Note Narrative PTD 19. The patient remains on Amantadine 100 BID and propranolol changed to 10 BID. ABS = 14 (14,14,14) reflecting an absence of agitation, and hence he remains at Rancho III. While he is moving extremities more, the quality is still insufficient to be called Rancho IV. The disposition plan is to transfer to a facility in [place]. I will follow. Wil Baeza PhD Oct 28, 2017 8:46 am
[2017-10-28] MEDS: ARTIFICIAL TEARS OPTH SOLN 15 ML BTL EACH EYE SCH ×3 (09:07→18:29)
[2017-10-28] MEDS: BENEPROTEIN POWDER 1 PACK G-TUBE SCH ×3 (09:07→18:30)
[2017-10-28] MEDS: SODIUM CHLORIDE 1 GRAM TAB PO SCH ×2 (09:07→22:32)
[2017-10-28] MEDS: BACITRACIN TOP OINT 15 GM TUBE TOPICAL SCH ×2 (09:07→22:36)
[2017-10-28] MEDS: ENOXAPARIN SODIUM 40 MG/0.4 ML SYRINGE SQ SCH (11:00)
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
[2017-10-28] MEDS: oxyCODONE HCL ORAL CONC 5 MG/0.25 ML SYRINGE PO SCH (22:10)
[2017-10-29] VITALS (7 sets, daily range): BP systolic 102–131; BP diastolic 67–82; PULSE 94–113; RESP 16–20; TEMP 98–98.6; O2SAT 95–97
[2017-10-29] MEDS: CLINDAMYCIN 150 MG CAP PO SCH ×4 (05:33→23:54)
[2017-10-29] MEDS: AMANTADINE HCL SOLN 100 MG/10 ML UDC PO SCH ×2 (05:33→11:42)
[2017-10-29] MEDS: BENEPROTEIN POWDER 1 PACK G-TUBE SCH ×3 (09:00→17:49)
[2017-10-29] MEDS: ARTIFICIAL TEARS OPTH SOLN 15 ML BTL EACH EYE SCH ×3 (09:00→17:49)
[2017-10-29] MEDS: SENNOSIDES SYRUP 8.8 MG/5 ML CUP PO SCH (09:00)
[2017-10-29] MEDS: MAGNESIUM HYDROXIDE SUSP 30 ML CUP PO SCH ×2 (09:00→21:00)
[2017-10-29] MEDS: SODIUM CHLORIDE 1 GRAM TAB PO SCH ×2 (09:02→21:22)
[2017-10-29] MEDS: PROPRANOLOL HCL 10 MG TAB PO SCH ×2 (09:03→21:22)
[2017-10-29] MEDS: LISINOPRIL 10 MG TAB PO SCH ×2 (09:04→21:22)
[2017-10-29] MEDS: CHLORHEXIDINE GLUCONATE 0.12% 15 ML CUP SWISH-SPIT SCH ×2 (09:05→21:00)
[2017-10-29] MEDS: BACITRACIN TOP OINT 15 GM TUBE TOPICAL SCH ×2 (09:05→21:28)
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
[2017-10-29] MEDS ORDERED: ACETAMINOPHEN 325 MG TAB PO PRN (11:30)
[2017-10-29] MEDS: ENOXAPARIN SODIUM 40 MG/0.4 ML SYRINGE SQ SCH (11:42)
[2017-10-30] VITALS: BP 124/75; PULSE 104; RESP 18; TEMP 98.7; O2SAT 98
[2017-10-30 04:00] VITALS: BP 130/70; PULSE 100; RESP 18; O2SAT 97
[2017-10-30] MEDS: CLINDAMYCIN 150 MG CAP PO SCH ×3 (06:01→18:24)
[2017-10-30] MEDS: AMANTADINE HCL SOLN 100 MG/10 ML UDC PO SCH ×2 (06:09→13:21)
[2017-10-30 08:00] VITALS: BP 116/71; PULSE 100; RESP 17; TEMP 97.8; O2SAT 97
[2017-10-30] MEDS: ARTIFICIAL TEARS OPTH SOLN 15 ML BTL EACH EYE SCH ×3 (09:00→17:45)
[2017-10-30] MEDS: CHLORHEXIDINE GLUCONATE 0.12% 15 ML CUP SWISH-SPIT SCH ×2 (09:00→21:35)
[2017-10-30] MEDS: BENEPROTEIN POWDER 1 PACK G-TUBE SCH ×3 (09:00→18:00)
[2017-10-30] MEDS: SENNOSIDES SYRUP 8.8 MG/5 ML CUP PO SCH (09:00)
[2017-10-30] MEDS: MAGNESIUM HYDROXIDE SUSP 30 ML CUP PO SCH ×2 (09:00→21:00)
[2017-10-30] MEDS: PROPRANOLOL HCL 10 MG TAB PO SCH ×2 (09:41→21:27)
[2017-10-30] MEDS: SODIUM CHLORIDE 1 GRAM TAB PO SCH ×2 (09:41→21:26)
[2017-10-30] MEDS: LISINOPRIL 10 MG TAB PO SCH ×2 (09:41→21:27)
[2017-10-30] MEDS: BACITRACIN TOP OINT 15 GM TUBE TOPICAL SCH ×2 (09:42→21:32)
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
[2017-10-30 12:00] VITALS: BP 121/70; PULSE 96; RESP 16; TEMP 98.1; O2SAT 98
[2017-10-30] MEDS: ENOXAPARIN SODIUM 40 MG/0.4 ML SYRINGE SQ SCH (13:21)
[2017-10-30 16:00] VITALS: BP 133/71; PULSE 95; RESP 18; TEMP 98.9; O2SAT 97
[2017-10-30 20:00] VITALS: BP 123/74; PULSE 101; RESP 18; TEMP 97.1; O2SAT 99
[2017-10-31] VITALS (7 sets, daily range): BP systolic 108–138; BP diastolic 67–75; PULSE 92–118; RESP 17–19; TEMP 97.3–97.8; O2SAT 95–97
[2017-10-31] MEDS: CLINDAMYCIN 150 MG CAP PO SCH ×4 (00:26→18:34)
[2017-10-31] MEDS: AMANTADINE HCL SOLN 100 MG/10 ML UDC PO SCH ×2 (05:46→13:25)
[2017-10-31] MEDS: ARTIFICIAL TEARS OPTH SOLN 15 ML BTL EACH EYE SCH (06:53)
[2017-10-31] MEDS: MAGNESIUM HYDROXIDE SUSP 30 ML CUP PO SCH (06:53)
[2017-10-31] MEDS: SENNOSIDES SYRUP 8.8 MG/5 ML CUP PO SCH (06:54)
[2017-10-31] MEDS: CHLORHEXIDINE GLUCONATE 0.12% 15 ML CUP SWISH-SPIT SCH ×3 (06:54→22:27)
[2017-10-31] MEDS ORDERED: ARTIFICIAL TEARS OPTH SOLN 15 ML BTL EACH EYE PRN (08:00)
[2017-10-31] MEDS ORDERED: MAGNESIUM HYDROXIDE SUSP 30 ML CUP PO PRN (08:00)
[2017-10-31] MEDS: BENEPROTEIN POWDER 1 PACK G-TUBE SCH ×3 (09:00→18:00)
--- NOTE | 2017-10-31 09:00 | HHI.PR ---
Subjective Remarks awake Objective Vital Signs Date Time Temp Pulse Resp B/P (MAP) Pulse Ox O2 Delivery O2 Flow Rate FiO2 10/31/17 04:00 100 18 108/70 (83) 97 10/31/17 00:00 97.7 92 18 119/75 (90) 97 10/30/17 20:00 97.1 101 18 123/74 (90) 99 10/30/17 16:00 98.9 95 18 133/71 (91) 97 10/30/17 12:00 98.1 96 16 121/70 (87) 98 I/O 10/30/17 10/30/17 10/30/17 10/31/17 10/31/17 10/31/17 06:59 14:59 22:59 06:59 14:59 22:59 Intake Total 800 ml 2755 ml Output Total 8 ml Balance 800 ml 2755 ml -8 ml Intake Oral 2040 ml Tube Feeding 700 ml 715 ml Tube Irrigant 100 ml Output Urine Total 8 ml # Voids 6 11 # Bowel Movements 2 3 Objective Remarks awake alert makes eye contact not follow commands feeds self with left hand inc tone rue and rle moves left ue and lle well not moving r side Assessment and Plan Assessment and Plan imp eeg ok mri no cva large left>r edema and left changes project more posteriorly and some left to right subfalcian herniation i dw he will have sign deficits and this is a 6 month at least rehab period i think will awaken eventualy with deficits ------ 10/23/17 no major change will fu occasionally 10/31/17 much better rhp some aphasia Jacob Fairbanks MD Oct 31, 2017 09:00
[2017-10-31] MEDS: SODIUM CHLORIDE 1 GRAM TAB PO SCH ×2 (09:17→22:26)
[2017-10-31] MEDS: LISINOPRIL 10 MG TAB PO SCH ×2 (09:17→22:26)
[2017-10-31] MEDS: PROPRANOLOL HCL 10 MG TAB PO SCH (09:17)
[2017-10-31] MEDS: BACITRACIN TOP OINT 15 GM TUBE TOPICAL SCH ×2 (09:18→22:27)
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
[2017-10-31] MEDS ORDERED: CLIN150 PO (12:43)
[2017-10-31] MEDS ORDERED: PROT6POW G-TUBE (12:43)
--- NOTE | 2017-10-31 13:12 | PD.WCN.NOT ---
Wound Consult Description: Patient seen at the request of Shyanne Yanes Nurse Healthcare Consultant and Vickie MORIN Communicated with: Patient at bedside Leah JOHNSON Recommendation: Continue to turn patient every 2 hours and PRN for comfort and offloading of pressure from soham prominences. Continue to apply bacitracin as ordered to right lateral knee abrasion. Apply Calazime skin protectant paste (Treasure top) BID and PRN to gluteal cleft fissure. Additional Information: Patient seen on for assessment of sacrum, coccyx, gluteal cleft, bilateral buttocks, and bilateral heels with patient at bedside. Tube feed was placed on hold. Bilateral heels visualized and noted to be unremarkable. There was no erythema and no open areas noted. [place] and soiled disposable underpads were removed from patient along with a pillow that was removed from underneath his left side. Patient left the room to obtain cloths for cleansing. Head of bed was lowered and it was explained to patient that financial underwriter would be turning patient over to his right side for assessment of his bottom. Patient was able to follow one step command by reaching over with his left arm and assisted financial underwriter in turning to his right side. Patient was independently able to remain on his right side for entire assessment of buttocks, sacrum, coccyx, and gluteal cleft by holding on to the side rail. Bilateral buttocks were visualized and noted to be unremarkable. Sacrum, Coccyx, and Gluteal Cleft were visualized. A partial thickness skin loss fissure was noted in the gluteal cleft measuring ~2cm x 0.2cm x <0.1cm with 100% pink moist tissue. Etiology appears to be from aggressively pulling buttocks apart during cleansing. There was no odor and no drainage noted. Periwound was unremarkable. Wound was cleansed with wound cleanser and gauze. Wound was allowed to air dry prior to placing Calazime skin protectant to fissure. Patient was then assisted to his back for inspection of his scrotum which was noted without any open areas. Patient returned with bath cloths for patient to be cleansed after having bladder incontinence. There was an area of light pink intact skin noted to scrotum which was covered in a thin layer of Calazime. There was dried blood noted on the anterior mid shaft of the penis that was partially intact with pink new skin underneath measuring ~0.2cm x 0.5cm x 0cm that appears to have been an excoriation or tear given its linear shape. Closing /healing wound was left open to air. There was also a dry wound noted underneath the trach collar measuring ~0.3cm x 0.2cm x 0cm of 100% yellow dry crust/exudate with no odor and no drainage. There was blanching erythema noted ~1cm circumferentially to periwound. Wound etiology appears to be device related and recommend to leave dry wound bed open to air with only the drain sponge changed as needed, which was left in place as it was noted to be dry and intact. Consuelo Estevez [facility] Oct 31, 2017 13:12
[2017-10-31] MEDS: ENOXAPARIN SODIUM 40 MG/0.4 ML SYRINGE SQ SCH (13:24)
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
[2017-11-01] VITALS (8 sets, daily range): BP systolic 111–134; BP diastolic 66–73; PULSE 102–131; RESP 15–21; TEMP 97.8–98.2; O2SAT 93–99
[2017-11-01] MEDS: CLINDAMYCIN 150 MG CAP PO SCH ×3 (01:08→13:11)
[2017-11-01] MEDS: AMANTADINE HCL SOLN 100 MG/10 ML UDC PO SCH ×2 (06:41→14:53)
--- NOTE | 2017-11-01 07:45 | HHI.PR ---
Neuropsych Progress Notes/Response to Tx Premorbid psychological status Premorbid Cognitive, Emotional and Behavioral Status: Deferred. The patient has high school years of education and is believed to have a solid work history prior to this injury. The patient has no known prior psychiatric difficulties, as described above. Substance abuse history includes alcohol use. Behavioral Reactions of Patient and Family/Support System: Unable to Assess. The patients family is experiencing ongoing issues of adjustment given the nature of the injury, and this aspect of recovery will require ongoing monitoring. Emotional/Behavioral Status of Patient and Family/Support System: Unable to Assess. Pertinent issues, if appropriate to this patients clinical care, are described in detail above. Maximizing acute care outcome It is recommended that the patient be monitored for emergent behavioral impulsivity as the medical condition evolves. This patients neuropathological challenges may limit his rehabilitation potential going forward, and these challenges will require specialized therapeutic skills to maximize outcome. Additionally, the patients family is experiencing ongoing issues of adjustment given the traumatic nature of the injury, and they may benefit from ongoing psychological assistance. At this point in the recovery process, the patient does not have cognitive capacity as the patient is unable to understand a situation and its likely consequences, nor is he able to manipulate information rationally. Cognitive capacity will be assessed throughout the recovery process. Anticipated Problems Ongoing areas of concern will include behavioral impulsivity, lack of insight and judgment, which is expected to improve with time and treatment. Presently , the patient is intubated and sedated. Given the severity of the patient's injuries it is my clinical opinion that this patient will be unable to return to any type of productive employment for at least one year, perhaps longer and likely never. This patient is not considered safe to discharge home without supervision. Treatment Plan This clinician will continue to follow with you throughout the course of this patients critical care treatment, and I will be available to meet with the patients family/support system to facilitate their understanding and the ongoing care of their family member. The goals of neuropsychological intervention shall be both educational and supportive to the family/support system as is deemed clinically appropriate. Disinhibition Score: 14.00 Aggression Score: 14.00 Lability Score: 14.00 Agitated Behavior Total Score: 14 Impression 42 year old [place] s/p [place] [facility] [place]. Diagnosis: (1) Major neurocognitive disorder as late effect of traumatic brain injury without behavioral disturbance Status: Acute Progress Note Narrative Dr. Nuñez note for coverage for Dr. Baeza: This senior technical writer was asked to see the patient because he has been at a Rancho 3 level and staff on the trauma side believe he may have progressed into arranging for today. Assessed the patient and had a family conference with the patient's to discuss the progress the patient has made and the need to be realistic regarding the potential trajectory of ongoing progress. She presents as caring and attentive. She is highly motivated to have him moved to a rehabilitation center at the earliest possible time. Today the patient does present at a Rancho 4 level. This is based on the following criteria: He is alert and attempting to pull out DIRECTOR WORKFORCE MANAGEMENT but can be redirected. He has some agitation but seems to understand when told that he is safe and needs to make an effort to be less agitated. He has purposeful moving and reaching upon request. He was able to assist the nurse when doing oral care and he is appropriately responding to verbal commands. I was unable to fully assess memory due to inability to speak but he can attend to a speaker and hold concentration for several minutes. He is not exhibiting any aggressive behaviors at this time, other than potentially self harming behaviors related to trying to remove tubes. He is not presently trying to get out of bed but staff is attentive and remains bedside throughout most of the day. He has volitional movement of both his upper and lower extremities. He still has substantial neurocognitive deficits but seems to be moving through the Rancho levels up to this time and he has good family support and a discharge plan in place. This patient is not ventilated. He is not sedated. He is alert and is successfully tracking, sustaining eye contact with others appropriately, and volitionally and appropriately responding to verbal commands. At this point, the patient is a suitable candidate for inpatient rehabilitation and would benefit from 3 hours of therapy per day across multiple disciplines. Because historical neuropsychology notes are duplicated with each new note generated, this senior technical writer is completing this note as both a neuropsych note and a regular psychology note, so there will be no confusion regarding the patient's status and documentation of a progression into a Rancho 4. Any mention of ventilation was from the patient's initial arrival and does not pertain to the patient now, nor has it for several days. I am covering for Dr. Baeza and, while his historical notes include other information while he followed the patient since the patient's hospitalization, the salient information for the patient at this time is the progress note narrative which, within his body, contains all pertinent information regarding the patient's ability to transfer to an inpatient rehabilitation setting. Marian Nuñez PhD Nov 01, 2017 07:45
--- NOTE | 2017-11-01 07:47 | HHI.PR ---
Progress Notes/Response to Tx Diagnosis: (1) Major neurocognitive disorder as late effect of traumatic brain injury without behavioral disturbance Status: Acute Progress Note Narrative Dr. Nuñez note for coverage for Dr. Baeza: This health science writer was asked to see the patient because he has been at a Rancho 3 level and staff on the trauma side believe he may have progressed into arranging for today. Assessed the patient and had a family conference with the patient's to discuss the progress the patient has made and the need to be realistic regarding the potential trajectory of ongoing progress. She presents as caring and attentive. She is highly motivated to have him moved to a rehabilitation center at the earliest possible time. Today the patient does present at a Rancho 4 level. This is based on the following criteria: He is alert and attempting to pull out STAMP COLLECTOR but can be redirected. He has some agitation but seems to understand when told that he is safe and needs to make an effort to be less agitated. He has purposeful moving and reaching upon request. He was able to assist the nurse when doing oral care and he is appropriately responding to verbal commands. I was unable to fully assess memory due to inability to speak but he can attend to a speaker and hold concentration for several minutes. He is not exhibiting any aggressive behaviors at this time, other than potentially self harming behaviors related to trying to remove tubes. He is not presently trying to get out of bed but staff is attentive and remains bedside throughout most of the day. He has volitional movement of both his upper and lower extremities. He still has substantial neurocognitive deficits but seems to be moving through the Rancho levels up to this time and he has good family support and a discharge plan in place. This patient is not ventilated. He is not sedated. He is alert and is successfully tracking, sustaining eye contact with others appropriately, and volitionally and appropriately responding to verbal commands. At this point, the patient is a suitable candidate for inpatient rehabilitation and would benefit from 3 hours of therapy per day across multiple disciplines. Because historical neuropsychology notes are duplicated with each new note generated, this health science writer is completing this note as both a neuropsychology note and a regular psychology note, so there will be no confusion regarding the patient's status and documentation of a progression into a Rancho 4. Any mention of ventilation was from the patient's initial arrival and does not pertain to the patient now, nor has it for several days. I am covering for Dr. Baeza and, while his historical notes include other information while he followed the patient since the patient's hospitalization, the salient information for the patient at this time is the progress note narrative which, within his body, contains all pertinent information regarding the patient's ability to transfer to an inpatient rehabilitation setting. All additional information on the neuropsychology note automatically pulled over from Dr. Baeza's historical notes from his initial assessment of the patient. Marian Nuñez PhD Nov 01, 2017 07:47
[2017-11-01] MEDS: LISINOPRIL 10 MG TAB PO SCH ×2 (08:56→22:13)
[2017-11-01] MEDS: BENEPROTEIN POWDER 1 PACK G-TUBE SCH ×3 (09:00→18:00)
[2017-11-01] MEDS: CHLORHEXIDINE GLUCONATE 0.12% 15 ML CUP SWISH-SPIT SCH ×2 (11:03→21:38)
[2017-11-01] MEDS: BACITRACIN TOP OINT 15 GM TUBE TOPICAL SCH ×2 (11:05→22:13)
[2017-11-01] MEDS: SODIUM CHLORIDE 1 GRAM TAB PO SCH ×2 (11:17→22:13)
[2017-11-01] MEDS: SENNOSIDES SYRUP 8.8 MG/5 ML CUP PO SCH (11:17)
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
[2017-11-01] MEDS: ENOXAPARIN SODIUM 40 MG/0.4 ML SYRINGE SQ SCH (13:11)
[2017-11-02] VITALS (8 sets, daily range): BP systolic 102–117; BP diastolic 59–75; PULSE 95–123; RESP 15–18; TEMP 94.1–99.1; O2SAT 94–97
--- NOTE | 2017-11-02 03:24 | RADRPT ---
EXAM DATE/TIME: 11/02/2017 02:24 [facility] COMPARISON: CHEST SINGLE AP, October 26, 2017, 5:14. INDICATIONS : Fever. MEDICAL HISTORY : Hearing loss. PTSD. Traumatic brain injury SURGICAL HISTORY : Knee surgery ENCOUNTER: Subsequent ACUITY: 3 weeks PAIN SCORE: Non-responsive. LOCATION: Bilateral chest FINDINGS: Single AP view of the chest. Tracheostomy tube remains in place. There is been marked decrease in lef t lower lung zone opacity with mild patchy residual. No evidence of pleural effusion or pneumothorax. CONCLUSION: Decreased left lower lung zone pulmonary parenchymal opacity with mild patchy residual. Tin Yanes MD on November 02, 2017 at 3:22 Board Certified Radiologist. This report was verified electronically.
[2017-11-02 03:44] LABS: BICARBONATE 27.9 MEQ/L (21.0-32.0); CALCIUM 8.9 MG/DL (8.5-10.1); CREATININE 0.64 MG/DL (0.60-1.30)
[2017-11-02 04:00] LABS: AUTOMATED NEUTROPHIL # 4.5 TH/MM3 (1.8-7.7); BASOPHIL # 0.1 TH/MM3 (0-0.2); BASOPHIL % 0.7 % (0.0-2.0); EOSINOPHIL # 0.2 TH/MM3 (0-0.4); EOSINOPHIL % 2.8 % (0.0-4.0); HEMATOCRIT 37.3 % (39.0-51.0); HEMOGLOBIN 12.9 GM/DL (13.0-17.0); LYMPH % 20.9 % (9.0-44.0); LYMPHOCYTE # 1.5 TH/MM3 (1.0-4.8); MEAN CELL VOLUME 86.6 FL (80.0-100.0); MEAN CORPUSCULAR HGB CONC 34.6 % (32.0-36.0); MEAN PLATELET VOLUME 9.2 FL (7.0-11.0); MONO % 11.5 % (0.0-8.0); MONOCYTE # 0.8 TH/MM3 (0-0.9); NEUT % 64.1 % (16.0-70.0); PLATELET COUNT 350 TH/MM3 (150-450); RED BLOOD COUNT 4.31 MIL/MM3 (4.50-5.90); RED CELL DISTRIBUTION WIDTH 14.4 % (11.6-17.2); WHITE BLOOD COUNT 7.1 TH/MM3 (4.0-11.0)
[2017-11-02] MEDS ORDERED: METOPROLOL TARTRATE 5 MG/5 ML VIAL IV PUSH ONE ×2 (04:30→04:50)
[2017-11-02] MEDS: AMANTADINE HCL SOLN 100 MG/10 ML UDC PO SCH ×2 (06:04→13:32)
[2017-11-02] MEDS: BENEPROTEIN POWDER 1 PACK G-TUBE SCH ×3 (09:00→18:00)
[2017-11-02] MEDS: BACITRACIN TOP OINT 15 GM TUBE TOPICAL SCH ×2 (09:00→21:14)
[2017-11-02] MEDS: LISINOPRIL 10 MG TAB PO SCH ×2 (09:46→21:13)
[2017-11-02] MEDS: SODIUM CHLORIDE 1 GRAM TAB PO SCH ×2 (09:46→21:14)
[2017-11-02] MEDS: SENNOSIDES SYRUP 8.8 MG/5 ML CUP PO SCH (09:46)
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
[2017-11-02] MEDS: CHLORHEXIDINE GLUCONATE 0.12% 15 ML CUP SWISH-SPIT SCH ×2 (13:06→21:14)
[2017-11-02] MEDS: ENOXAPARIN SODIUM 40 MG/0.4 ML SYRINGE SQ SCH (13:07)
--- NOTE | 2017-11-02 15:12 | EKG ---
Date Performed: 11/02/2017 Time Performed: 02:24:04 PTAGE: 42 years EKG: Atrial fibrillation with rapid ventricular response. Left anterior fascicular block Baselin e artifact Abnormal ECG NO PREVIOUS TRACING DOCTOR: Taurus Ladd Interpretating Date/Time 11/02/2017 15:12:28
--- NOTE | 2017-11-02 15:14 | EKG ---
Date Performed: 11/02/2017 Time Performed: 05:27:28 PTAGE: 42 years EKG: Sinus tachycardia. Left anterior fascicular block Compared to previous tracing, atrial fibr illation has converted from sinus tachycardia Borderline ECG PREVIOUS TRACING : 11/02/17 @ 0224 DOCTOR: Taurus Ladd Interpretating Date/Time 11/02/2017 15:13:51
[2017-11-03] VITALS (7 sets, daily range): BP systolic 99–119; BP diastolic 56–69; PULSE 110–124; RESP 17–22; TEMP 96.2–97.9; O2SAT 92–98
[2017-11-03] MEDS: AMANTADINE HCL SOLN 100 MG/10 ML UDC PO SCH ×2 (05:56→14:43)
[2017-11-03] MEDS: CHLORHEXIDINE GLUCONATE 0.12% 15 ML CUP SWISH-SPIT SCH ×2 (08:44→19:57)
[2017-11-03] MEDS: LISINOPRIL 10 MG TAB PO SCH ×2 (08:45→19:57)
[2017-11-03] MEDS: SODIUM CHLORIDE 1 GRAM TAB PO SCH ×2 (08:45→19:57)
[2017-11-03] MEDS: BACITRACIN TOP OINT 15 GM TUBE TOPICAL SCH ×2 (08:45→19:57)
[2017-11-03] MEDS: BENEPROTEIN POWDER 1 PACK G-TUBE SCH ×3 (08:45→17:35)
[2017-11-03] MEDS: SENNOSIDES SYRUP 8.8 MG/5 ML CUP PO SCH (08:45)
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
[2017-11-03] MEDS: REMOVE OLD CATAPRES (CLONIDINE) PATCH T-DERMAL SCH (12:00)
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
[2017-11-03] MEDS: cloNIDine HCL 0.1 MG/24 HR PATCH T-DERMAL SCH (15:00)
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
[2017-11-03] MEDS ORDERED: CHLORHEXIDINE GLUCONATE 2 % 1 PACK (2 CLOTHS) TOPICAL PRN (18:30)
[2017-11-03] MEDS ORDERED: INSULIN HUMAN REGULAR 1,000 UNITS/10 ML VIAL SQ PRN (18:30)
[2017-11-03] MEDS ORDERED: LACTATED RINGER'S 1000 ML IV PRN (18:30)
[2017-11-03] MEDS ORDERED: POVIDONE IODINE 5% (ANTISEPSIS KIT) 4 APPLICATIONS EACH NARE PRN (18:30)
[2017-11-03] MEDS ORDERED: SODIUM CHLORID 0.9% 500 ML IV PRN (18:30)
[2017-11-03] MEDS ORDERED: METOPROLOL TARTRATE 25 MG TAB PO PRN (18:30)
[2017-11-03] MEDS: CHLORHEXIDINE GLUCONATE 4% SOLN 120 ML BTL TOP SCH (19:57)
[2017-11-04] VITALS: BP 107/71; PULSE 110; RESP 20; TEMP 98.1; O2SAT 96
[2017-11-04 00:19] VITALS: PULSE 110
[2017-11-04 03:58] VITALS: PULSE 105
[2017-11-04] MEDS ORDERED: ceFAZolin 2 GM in NS 100 ML IV ONE (06:00)
[2017-11-04] MEDS ORDERED: ceFAZolin 2 GM PREMIX 50 ML IV ONE (06:00)
[2017-11-04] MEDS: AMANTADINE HCL SOLN 100 MG/10 ML UDC PO SCH ×2 (07:00→12:00)
[2017-11-04 08:00] VITALS: PULSE 106
[2017-11-04] MEDS: CHLORHEXIDINE GLUCONATE 0.12% 15 ML CUP SWISH-SPIT SCH ×2 (09:00→22:06)
[2017-11-04] MEDS: SENNOSIDES SYRUP 8.8 MG/5 ML CUP PO SCH (09:00)
[2017-11-04] MEDS: BACITRACIN TOP OINT 15 GM TUBE TOPICAL SCH ×2 (09:00→14:00)
[2017-11-04] MEDS: SODIUM CHLORIDE 1 GRAM TAB PO SCH ×2 (09:00→22:06)
[2017-11-04] MEDS: BENEPROTEIN POWDER 1 PACK G-TUBE SCH ×3 (09:00→18:00)
[2017-11-04] MEDS: LISINOPRIL 10 MG TAB PO SCH ×2 (09:00→22:06)
[2017-11-04] MEDS ORDERED: PHENYLEPH/NS 1000 MCG/10 ML SYR IV ONE (12:00)
[2017-11-04] MEDS ORDERED: NEOSTIGMINE 5 MG/5 ML SYRINGE IV PUSH ONE (12:00)
[2017-11-04] MEDS ORDERED: GLYCOPYRROLATE 1 MG/5 ML SYRINGE IV PUSH ONE (12:00)
[2017-11-04] MEDS ORDERED: LABETALOL HCL 100 MG/20 ML VIAL IV ONE (12:00)
[2017-11-04] MEDS ORDERED: ROCURONIUM INJ 50 MG/5 ML SYRINGE IV PUSH ONE (12:00)
[2017-11-04] MEDS ORDERED: ePHEDrine/NS 25 MG/5 ML SYRINGE IV ONE (12:00)
[2017-11-04] MEDS ORDERED: PHENYLEPHRINE HCL 10 MG/ML VIAL IV ONE (12:00)
[2017-11-04] MEDS ORDERED: DEXAMETHASONE SOD PHOS 4 MG/ML VIAL IV ONE (12:00)
[2017-11-04] MEDS ORDERED: PROPOFOL 200 MG/20 ML AMP IV ONE (12:00)
[2017-11-04] MEDS ORDERED: LIDOCAINE HCL 1% PF 5 ML SYRINGE OTHER ONE (12:00)
[2017-11-04] MEDS ORDERED: ONDANSETRON HCL 4 MG/2 ML VIAL IV ONE (12:00)
[2017-11-04] MEDS ORDERED: LIDOCAINE 1%/EPINEPHrine 1:100,000 SOLN 30 ML VIAL ONE (12:22)
[2017-11-04] MEDS ORDERED: GELFOAM SIZE 100 ONE (12:23)
[2017-11-04] MEDS ORDERED: GENTAMICIN SULFATE 80 MG/2 ML VIAL ONE (12:23)
[2017-11-04] MEDS ORDERED: THROMBIN (TOPICAL) 5,000 UNIT VIAL ONE (12:23)
[2017-11-04] MEDS ORDERED: levETIRAcetam 500 MG/5 ML VIAL IV ONE (13:00)
[2017-11-04] MEDS ORDERED: MANNITOL INJ 100 ML ONE (13:01)
[2017-11-04] MEDS ORDERED: ceFAZolin INJ 1,000 MG VIAL ONE ×3 (13:16→16:20)
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
[2017-11-04] MEDS ORDERED: SUGAMMADEX SODIUM 200 MG/2 ML VIAL IV PUSH ONE (14:11)
--- NOTE | 2017-11-04 14:57 | PD.OP ---
Operative Report Date of Surgery: Nov 04, 2017 Preoperative Diagnosis: Bilateral cranial skull defect Postoperative Diagnosis: Bilateral cranial skull defect Procedure: Right frontal temporal parietal cranioplasty Right frontal temporal parietal cranioplasty Anesthesia: general endotracheal Surgeon: Scott Arellano Crimping Machine Operator For Metal(s): Samira Gupta Operation and Findings: INDICATIONS FOR THE PROCEDURE Mr Herbert is a 42 year-old male who has posttraumatic bilateral large cranial skull defects. A reconstructive cranioplasty was indicated. The step-by- step details of the procedure, indications, alternatives, risks and potential complications were fully discussed with the patient's . The patient's fully understood. All his questions were answered. No guarantees were given. The patient voiced requesting the procedure and provided informed consents. He was offered the alternative of delaying the procedure and continuing with nonsurgical management. DETAILS OF THE SURGICAL PROCEDURE The patient was endotracheally intubated and mechanically ventilated. A Bobby catheter, bilateral URIEL hose and sequential compression devices were placed and kept throughout the procedure. The patient was positioned supine on a 3080 table over a soft mattress. The head was placed on a gel doughnut. All pressure points were carefully padded with egg crate mattress. The eyes were tapped shut after ointment was applied by the anesthesiologist to prevent corneal abrasion. A Belle hugger was placed over the expossed lower body to maintain control of the core body temperature. RIGHT SIDE CRANIOPLASTY The incision was marked on the right frontotemporoparietal region and infiltrated with 1% lidocaine with epinephrine 1:100,000 dilution. The skin incision was made with a #10 blade. Small cranial bleeders were controlled with the bipolar and Alia clips were applied to the scalp edges. Then, the right frontotemporoparietal scalp flap was carefully elevated and retracted anteriorly, exposing the edges of the craniectomy defect. Special attention was taken to dissect the epidural space maintaining the duramatter intact. Hemostasis was secured and the incision was irrigated with a large amount of antibiotic solution. Then, the scalp was covered with a moist Ray-Luis Daniel soaked in antibiotic solution and fishhooks were applied to the incision. There was an area of dural defect which was reconstructed using a piece of Duragen. The patient's craniotomy flap was carefully washed with antibiotic solution and a reconstructive cranioplasty was performed by carefully placing autologous bone flap which was carefully secured using striker plates and screws. The flap was secured using Slava plates and 5 mm screws. A solid placement of the bone was achieved with good very cosmetic result. The incision was thoroughly irrigated with antibiotic solution. The closure was then performed in layers. The temporalis fascia was closed with interrupted 0 Vicryl sutures. The galea was closed with interrupted 3-0 Vicryl sutures. Billy were applied to the skin. A 7 mm Bryson-Awad drain was left in the subgaleal space and externalized through the a separate stab incision and secured with 3-0 nylon. A sterile dressing was placed. LEFT SIDE CRANIOPLASTY Then, the incision was outlined on the left frontotemporoparietal region and infiltrated with 1% lidocaine with epinephrine 1:100,000 dilution. The skin incision was made with a #10 blade. Small cranial bleeders were controlled with the bipolar and Alia clips were applied to the scalp edges. Then, the left frontotemporoparietal scalp flap was carefully elevated and retracted anteriorly, exposing the edges of the craniectomy defect. Again, special attention was taken to dissect the epidural space maintaining the duramatter intact. Hemostasis was secured and the incision was irrigated with a large amount of antibiotic solution. Then, the scalp was covered with a moist Ray-Luis Daniel soaked in antibiotic solution and fishhooks were applied to the incision. There was an area of dural defect which was reconstructed using a piece of Duragen. The patient's left craniotomy flap was carefully washed with antibiotic solution and a reconstructive cranioplasty was performed by carefully placing autologous bone flap which was again carefully secured using striker plates and screws. The left cranial flap flap was secured using Slava plates and 5 mm screws. A solid placement of the bone was achieved with good very cosmetic result. The incision was thoroughly irrigated with antibiotic solution. The closure was then performed in layers. The temporalis fascia was closed with interrupted 0 Vicryl sutures. The galea was closed with interrupted 3-0 Vicryl sutures. [place] were applied to the skin. A 7 mm Bryson-Awad drain was left in the subgaleal space and externalized through the a separate stab incision and secured with 3-0 nylon. A sterile dressing was placed. At the end of the procedure the sponge, needle and instrument counts were all correct. Estimated blood loss was 80-100 cc. No blood transfusion was given. No intraoperative complications occurred. The patient received prophylactic antibiotics. The patient was then transferred to the recovery room in stable condition. Scott Arellano MD Nov 04, 2017 14:57
[2017-11-04] MEDS ORDERED: MAGNESIUM SULFATE INJ 4 GM in SODIUM CHLORIDE 0.9% INJ 100 ML IV PRN (15:00)
[2017-11-04] MEDS ORDERED: POTASSIUM CHLOR 20 MEQ PREMIX 100 ML IV PRN (15:00)
[2017-11-04] MEDS ORDERED: BISACODYL 10 MG SUPP RECTAL PRN (15:00)
[2017-11-04] MEDS ORDERED: ONDANSETRON HCL 4 MG/2 ML VIAL IV PUSH PRN (15:00)
[2017-11-04] MEDS ORDERED: ACETAMINOPHEN/HYDROcodone 325 MG/10 MG TAB PO PRN ×2 (15:00)
[2017-11-04] MEDS ORDERED: MORPHINE SULFATE 4 MG/ML INJ IV PUSH PRN ×2 (15:00)
[2017-11-04] MEDS ORDERED: ceFAZolin 2 GM PREMIX 50 ML IV SCH (15:00)
[2017-11-04] MEDS ORDERED: CALCIUM GLUCONATE 10% 1 GM/10 ML VIAL IV PRN (15:00)
[2017-11-04] MEDS ORDERED: ACETAMINOPHEN 325 MG TAB PO PRN (15:00)
[2017-11-04] MEDS ORDERED: DO NOT ADM ANY ANTICOAGULANT DRUGS PRN (15:26)
[2017-11-04] MEDS ORDERED: MIDAZOLAM HCL 2 MG/2 ML VIAL ONE (15:40)
[2017-11-04] MEDS ORDERED: SODIUM CHLORID 0.9% 500 ML INJ 500 ML IV ONE (15:45)
[2017-11-04] MEDS: NS + KCL 20 MEQ INJ 1,000 ML IV SCH (16:00)
[2017-11-04] MEDS: ceFAZolin 2 GM in NS 100 ML IV SCH (16:00)
[2017-11-04] MEDS: MANNITOL 12.5 GM/50 ML VIAL IV SCH (16:00)
[2017-11-04] MEDS ORDERED: *morphine SULFATE 4 MG/ML PERIprocedure ONLY ONE ×3 (16:12→19:20)
[2017-11-04] MEDS: levETIRAcetam INJ 500 MG in SODIUM CHLORIDE 0.9% INJ 100 ML IV SCH (17:00)
[2017-11-04 20:00] VITALS: BP 117/74; PULSE 107; RESP 12; TEMP 98.5; O2SAT 98
[2017-11-04] MEDS: CHLORHEXIDINE GLUCONATE 4% SOLN 120 ML BTL TOP SCH (20:32)
[2017-11-04] MEDS: DOCUSATE SODIUM 100 MG CAP PO SCH (22:06)
[2017-11-04 23:00] VITALS: PULSE 103
[2017-11-05] VITALS (9 sets, daily range): BP systolic 106–132; BP diastolic 59–80; PULSE 103–126; RESP 16–21; TEMP 98.1–101; O2SAT 94–98
[2017-11-05] MEDS: MANNITOL 12.5 GM/50 ML VIAL IV SCH ×3 (00:36→16:00)
[2017-11-05] MEDS: ceFAZolin 2 GM in NS 100 ML IV SCH ×2 (00:36→10:22)
[2017-11-05] MEDS: NS + KCL 20 MEQ INJ 1,000 ML IV SCH ×2 (00:37→12:19)
[2017-11-05 05:27] LABS: AUTOMATED NEUTROPHIL # 3.3 TH/MM3 (1.8-7.7); BASOPHIL % 0.5 % (0.0-2.0); EOSINOPHIL # 0.1 TH/MM3 (0-0.4); EOSINOPHIL % 2.3 % (0.0-4.0); HEMATOCRIT 33.7 % (39.0-51.0); HEMOGLOBIN 11.4 GM/DL (13.0-17.0); LYMPH % 27.3 % (9.0-44.0); LYMPHOCYTE # 1.6 TH/MM3 (1.0-4.8); MEAN CELL VOLUME 87.3 FL (80.0-100.0); MEAN CORPUSCULAR HEMOGLOBIN 29.5 PG (27.0-34.0); MEAN CORPUSCULAR HGB CONC 33.8 % (32.0-36.0); MONOCYTE # 0.8 TH/MM3 (0-0.9); NEUT % 56.9 % (16.0-70.0); PLATELET COUNT 220 TH/MM3 (150-450); RED BLOOD COUNT 3.86 MIL/MM3 (4.50-5.90); RED CELL DISTRIBUTION WIDTH 14.6 % (11.6-17.2); WHITE BLOOD COUNT 5.8 TH/MM3 (4.0-11.0)
[2017-11-05 05:49] LABS: CALCIUM 8.4 MG/DL (8.5-10.1); CREATININE 0.67 MG/DL (0.60-1.30)
[2017-11-05] MEDS: levETIRAcetam INJ 500 MG in SODIUM CHLORIDE 0.9% INJ 100 ML IV SCH ×2 (06:30→17:00)
[2017-11-05] MEDS: PANTOPRAZOLE SOD 40 MG DELAYED RELEASE TAB PO SCH (08:15)
[2017-11-05] MEDS: LISINOPRIL 10 MG TAB PO SCH ×2 (08:15→20:26)
[2017-11-05] MEDS: AMANTADINE HCL SOLN 100 MG/10 ML UDC PO SCH ×2 (08:16→12:19)
[2017-11-05] MEDS: DOCUSATE SODIUM 100 MG CAP PO SCH ×2 (08:16→20:26)
[2017-11-05] MEDS: SENNOSIDES SYRUP 8.8 MG/5 ML CUP PO SCH (08:16)
[2017-11-05] MEDS: CHLORHEXIDINE GLUCONATE 0.12% 15 ML CUP SWISH-SPIT SCH ×2 (08:16→20:26)
[2017-11-05] MEDS: SODIUM CHLORIDE 1 GRAM TAB PO SCH ×2 (08:16→20:25)
[2017-11-05] MEDS: BACITRACIN TOP OINT 15 GM TUBE TOPICAL SCH ×2 (08:20→20:27)
[2017-11-05] MEDS: BENEPROTEIN POWDER 1 PACK G-TUBE SCH ×3 (08:20→17:43)
[2017-11-05] MEDS: ENOXAPARIN SODIUM 40 MG/0.4 ML SYRINGE SQ SCH (11:00)
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
[2017-11-05] MEDS: CHLORHEXIDINE GLUCONATE 4% SOLN 120 ML BTL TOP SCH (20:26)
[2017-11-06] VITALS (9 sets, daily range): BP systolic 96–130; BP diastolic 61–74; PULSE 96–127; RESP 12–22; TEMP 96.9–99.9; O2SAT 96–99
[2017-11-06] MEDS: MANNITOL 12.5 GM/50 ML VIAL IV SCH ×4 (00:18→23:41)
[2017-11-06] MEDS: NS + KCL 20 MEQ INJ 1,000 ML IV SCH ×3 (00:18→16:48)
[2017-11-06] MEDS: levETIRAcetam INJ 500 MG in SODIUM CHLORIDE 0.9% INJ 100 ML IV SCH ×2 (05:43→17:24)
[2017-11-06] MEDS: AMANTADINE HCL SOLN 100 MG/10 ML UDC PO SCH ×2 (05:45→11:33)
[2017-11-06] MEDS ORDERED: ACET325T15 PO (08:25)
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
[2017-11-06] MEDS: PANTOPRAZOLE SOD 40 MG DELAYED RELEASE TAB PO SCH (09:25)
[2017-11-06] MEDS: DOCUSATE SODIUM 100 MG CAP PO SCH ×2 (09:25→22:38)
[2017-11-06] MEDS: SENNOSIDES SYRUP 8.8 MG/5 ML CUP PO SCH (09:25)
[2017-11-06] MEDS: CHLORHEXIDINE GLUCONATE 0.12% 15 ML CUP SWISH-SPIT SCH ×2 (09:25→22:38)
[2017-11-06] MEDS: SODIUM CHLORIDE 1 GRAM TAB PO SCH ×2 (09:26→22:39)
[2017-11-06] MEDS: LISINOPRIL 10 MG TAB PO SCH ×2 (09:26→22:38)
[2017-11-06] MEDS: BACITRACIN TOP OINT 15 GM TUBE TOPICAL SCH ×2 (09:26→22:41)
[2017-11-06] MEDS: BENEPROTEIN POWDER 1 PACK G-TUBE SCH ×3 (09:26→17:24)
[2017-11-06] MEDS: ENOXAPARIN SODIUM 40 MG/0.4 ML SYRINGE SQ SCH (11:32)
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
[2017-11-07] MEDS: NS + KCL 20 MEQ INJ 1,000 ML IV SCH (02:49)
[2017-11-07 04:00] VITALS: BP 117/71; PULSE 106; RESP 18; TEMP 97.9; O2SAT 97
[2017-11-07] MEDS: levETIRAcetam INJ 500 MG in SODIUM CHLORIDE 0.9% INJ 100 ML IV SCH (05:30)
[2017-11-07] MEDS: AMANTADINE HCL SOLN 100 MG/10 ML UDC PO SCH (05:35)
[2017-11-07 08:00] VITALS: BP 115/69; PULSE 100; RESP 20; TEMP 98.1; O2SAT 97
[2017-11-07] MEDS: DOCUSATE SODIUM 100 MG CAP PO SCH (09:00)
[2017-11-07] MEDS: BENEPROTEIN POWDER 1 PACK G-TUBE SCH (09:00)
[2017-11-07] MEDS: CHLORHEXIDINE GLUCONATE 0.12% 15 ML CUP SWISH-SPIT SCH (09:00)
[2017-11-07] MEDS: BACITRACIN TOP OINT 15 GM TUBE TOPICAL SCH (09:00)
[2017-11-07] MEDS: SENNOSIDES SYRUP 8.8 MG/5 ML CUP PO SCH (09:00)
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
[2017-11-07] MEDS: SODIUM CHLORIDE 1 GRAM TAB PO SCH (10:41)
[2017-11-07] MEDS: LISINOPRIL 10 MG TAB PO SCH (10:42)
[2017-11-07] MEDS: PANTOPRAZOLE SOD 40 MG DELAYED RELEASE TAB PO SCH (10:42)
== END 2017-11-07 11:59 | DRG 3 ==
LOC: NEPI 01:34 → EDBD 01:57 → NEDA 01:57 → N03A 02:07 → N07A 10-25 02:13 → N03B 11-04 16:27
PROVIDERS: ADMIT Surgery; ATTEND Surgery
PROC: 009630Z Drainage of Cerebral Ventricle with Drainage Device, Percutaneous Approach (ICD-10-PCS; 2017-10-09)
PROC: 00U20JZ Supplement Dura Mater with Synthetic Substitute, Open Approach (ICD-10-PCS; 2017-10-09)
PROC: 00D20ZZ Extraction of Dura Mater, Open Approach (ICD-10-PCS; 2017-10-09)
PROC: 00H032Z Insertion of Monitoring Device into Brain, Percutaneous Approach (ICD-10-PCS; 2017-10-09)
PROC: 4A103BD Monitoring of Intracranial Pressure, Percutaneous Approach (ICD-10-PCS; 2017-10-09)
PROC: 0HQ0XZZ Repair Scalp Skin, External Approach (ICD-10-PCS; 2017-10-09)
PROC: 02HV33Z Insertion of Infusion Device into Superior Vena Cava, Percutaneous Approach (ICD-10-PCS; 2017-10-09)
PROC: 0BH17EZ Insertion of Endotracheal Airway into Trachea, Via Natural or Artificial Opening (ICD-10-PCS; 2017-10-09)
PROC: 5A1955Z Respiratory Ventilation, Greater than 96 Consecutive Hours (ICD-10-PCS; 2017-10-09)
PROC: 30233N1 Transfusion of Nonautologous Red Blood Cells into Peripheral Vein, Percutaneous Approach (ICD-10-PCS; 2017-10-09)
PROC: 00N00ZZ Release Brain, Open Approach (ICD-10-PCS; principal; 2017-10-09 14:54)
PROC: 00H032Z Insertion of Monitoring Device into Brain, Percutaneous Approach (ICD-10-PCS; 2017-10-11)
PROC: 4A103BD Monitoring of Intracranial Pressure, Percutaneous Approach (ICD-10-PCS; 2017-10-11)
PROC: 5A1955Z Respiratory Ventilation, Greater than 96 Consecutive Hours (ICD-10-PCS; 2017-10-17)
PROC: 0BJ08ZZ Inspection of Tracheobronchial Tree, Via Natural or Artificial Opening Endoscopic (ICD-10-PCS; 2017-10-17)
PROC: 0DH63UZ Insertion of Feeding Device into Stomach, Percutaneous Approach (ICD-10-PCS; 2017-10-17)
PROC: 0B113F4 Bypass Trachea to Cutaneous with Tracheostomy Device, Percutaneous Approach (ICD-10-PCS; 2017-10-17 14:40)
PROC: 0NU007Z Supplement Skull with Autologous Tissue Substitute, Open Approach (ICD-10-PCS; 2017-11-04)
PROC: 00U20JZ Supplement Dura Mater with Synthetic Substitute, Open Approach (ICD-10-PCS; 2017-11-04)
DX: S06.6X9A Traumatic subarachnoid hemorrhage with loss of consciousness of unspecified duration, initial encounter (principal); J15.211 Pneumonia due to Methicillin susceptible Staphylococcus aureus; J90 Pleural effusion, not elsewhere classified; E87.0 Hyperosmolality and hypernatremia; R78.81 Bacteremia; J96.01 Acute respiratory failure with hypoxia; F01.50 Vascular dementia, unspecified severity, without behavioral disturbance, psychotic disturbance, mood disturbance, and anxiety; S01.01XA Laceration without foreign body of scalp, initial encounter; J98.11 Atelectasis; T85.615A Breakdown (mechanical) of other nervous system device, implant or graft, initial encounter; S06.2X9A Diffuse traumatic brain injury with loss of consciousness of unspecified duration, initial encounter; E87.70 Fluid overload, unspecified; F10.129 Alcohol abuse with intoxication, unspecified; S06.5X9A Traumatic subdural hemorrhage with loss of consciousness of unspecified duration, initial encounter; S02.0XXA Fracture of vault of skull, initial encounter for closed fracture; S02.19XA Other fracture of base of skull, initial encounter for closed fracture; S06.1X9A Traumatic cerebral edema with loss of consciousness of unspecified duration, initial encounter; R40.2431 Glasgow coma scale score 3-8, in the field [EMT or ambulance]; R73.9 Hyperglycemia, unspecified; Y90.8 Blood alcohol level of 240 mg/100 ml or more; I49.9 Cardiac arrhythmia, unspecified; K44.9 Diaphragmatic hernia without obstruction or gangrene; B95.2 Enterococcus as the cause of diseases classified elsewhere; V27.4XXA Motorcycle driver injured in collision with fixed or stationary object in traffic accident, initial encounter; Y92.410 Unspecified street and highway as the place of occurrence of the external cause
CPT/HCPCS: 31500; 31600; 31624; 36430; 36556; 36600; 61210; 70450; 70486; 70553; 71045; 71260; 72125; 72170; 74177; 76937; 80048; 80053; 80202; 80307; 81001; 81003; 82607; 82805; 82945; 82948; 83605; 83735; 83930; 84100; 84155; 84157; 84295; 84439; 84443; 85007; 85014; 85018; 85025; 85027; 85384; 85610; 85730; 86403; 86850; 86900; 86901; 86920; 87040; 87070; 87077; 87086; 87147; 87186; 87205; 89051; 90471; 93005; 93970; 94002; 94003; 94150; 94770; 95819; 96374; 96375; 99291; A7520; A9579; C1713; C9113; G0390; J0131; J0295; J0330; J0360; J0690; J0692; J1100; J1580; J1650; J1940; J1953; J2150; J2250; J2270; J2370; J2405; J2543; J2710; J3010; J3370; J3411; J3480; J7030; J7040; J7050; J7120; P9016; Q9967